=== PATIENT | female | born 1965 | race Hispanic/Latino ===

== ENCOUNTER 2018-06-26 09:38 | Emergency (ER) | payer SELFPAY ==
[2018-06-26 10:34] LABS: Protime INR 1.02
[2018-06-26] MEDS ORDERED: ONDANSETRON 4 MG/2 ML VIAL ONE (10:34)
[2018-06-26] MEDS ORDERED: MECLIZINE HCL 12.5 MG TAB ONE (10:34)
[2018-06-26 10:53] LABS: ALT/SGPT 40 U/L (12-78); AST/SGOT 20 U/L (15-37); Albumin 3.9 g/dL (3.4-5.0); Alkaline Phosphatase 157 U/L (45-117); BUN Blood Urea Nitrogen 9 mg/dL (7-18); Bicarbonate 27 mmol/L (21-32); Bilirubin Direct 0.2 mg/dL (0-0.2); Bilirubin Total 0.6 mg/dL (0.2-1.0); Glucose Level 296 mg/dL (74-106); Magnesium 2.3 mg/dL (1.8-2.4); NT PRO-BNP 119 pg/mL (<125); Protein, Total 7.6 g/dL (6.4-8.2); Sodium Level 137 mmol/L (136-145); Troponin (Emerg Dept Use Only) < 0.02 ng/mL (0.0-0.045)
--- NOTE | 2018-06-26 10:57 | RAD REPORT ---
EXAM DESCRIPTION: CT - Head Brain Wo Cont - 06/26/2018 10:49 am CLINICAL HISTORY: Headache and dizziness COMPARISON: 2017 TECHNIQUE: Computed axial tomography of the head was obtained. IV contrast was not requested. All CT scans are performed using dose optimization technique as appropriate and may include automated exposure control or mA/KV adjustment according to patient size. FINDINGS: An intracranial bleed is not seen . The ventricles are normal in caliber. Small low-density area within the right cerebellum is unchanged probably representing an old infarction. No extra-axial fluid collection is noted. Mild low-density areas within periventricular white matter likely represent ischemic changes secondary to small vessel disease. Fluid within the sinuses/ mastoids is not seen. IMPRESSION: No acute intracranial abnormality is seen. If patient's symptoms persist MRI of the bra in would be recommended.
[2018-06-26 11:05] LABS: Absolute Lymphocytes (CBC) 0.6 K/uL (0.7-4.9); Absolute Monocytes 0.3 K/uL (0.1-1.3); Absolute Neutrophil 5.5 K/uL (1.8-8.0); Basophils % 0.2 % (0-1.3); Eosinophils % 0.2 % (0-4.4); Hematocrit 43.7 % (36.0-45.0); Lymphocytes % 9.4 % (15.3-44.8); MCV 92.1 fL (80-100); MPV 8.9 fL (7.6-11.3); Monocytes % 4.2 % (3.3-12.3); RBC Red Blood Cell Count 4.74 M/uL (3.86-4.86)
--- NOTE | 2018-06-26 11:47 | RAD REPORT ---
EXAM DESCRIPTION: RAD - Chest Single View - 06/26/2018 10:45 am CLINICAL HISTORY: Dizziness, weakness, headache, shortness of breath COMPARISON: Chest 10/11/2017 TECHNIQUE: AP portable chest image was obtained 1038 hours . FINDINGS: Lungs are clear. Heart and vasculature are normal. No measurable pleural effusion and no p neumothorax. No acute bony abnormality seen. No acute aortic findings suspected. IMPRESSION: No acute cardiopulmonary process. No significant interval change.
--- NOTE | 2018-06-26 12:26 | EKG ---
Test Date: 2018-06-26 Test Time: 10:32:08 Gas Appliance Servicer: KEN MEASUREMENT RESULTS: Intervals: Rate: 71 OK: 138 QRSD: 90 QT: 414 QTc: 449 [place]: P: 11 OK: 138 QRS: -9 T: 47 INTERPRETIVE STATEMENTS: Normal sinus rhythm Nonspecific T wave abnormality Abnormal ECG Compared to ECG 10/11/2017 13:19:27 T-wave abnormality now present Electronically Signed On 06-26-18 12:25:19 CDT by Obie Sebastian
[2018-06-26 12:52] LABS: Urine White Blood Cell Casts OK
[2018-06-26 12:53] LABS: Platelet Estimate ADEQ
[2018-06-26 12:54] LABS: Blood Morphology Comment NOT SEEN (NOT SEEN)
--- NOTE | 2018-06-26 15:49 | RAD REPORT ---
EXAM DESCRIPTION: MRI - Brain Wo Cont - 06/26/2018 3:34 pm CLINICAL HISTORY: Dizziness, weakness, left-sided facial droop COMPARISON: CT head same date TECHNIQUE: Sagittal T1-weighted images were obtained along with axial PD, heavily T2-weighted and T2 -FLAIR images. Axial DWI and ADC mapping sequences were also obtained along with coronal heavily T2-w eighted images. FINDINGS: No intracranial hemorrhage, mass or acute infarction. There is no edema or shift of midlin e structures. No extra-axial fluid collections. Cheatham-matter/white matter junction is preserved. Signa l voids are seen as a normal finding in the major intracranial vessels. No significant atrophy changes are identifiable. Ventricles are normal. Patient has extensive signal abnormality scattered in the cerebral white matter. Single focus is seen in the right lentiform nucle us. There is signal abnormality in the left external capsule. Basal ganglia are generally spared in t he brainstem is spared. There is a focal air diminished or heterogeneous signal in the peripheral pos terior right cerebellum. Findings are most likely related to chronic ischemic change. There are few s ignal abnormalities that are perpendicular to the lateral ventricles. Demyelinization is not entirely excluded but felt to be lesser in likelihood. No globe or orbital content acute finding. No sella or supra sella suspicious finding. Mastoid air cells and paranasal sinuses are clear. IMPRESSION: No acute infarction changes. No hemorrhage, mass or acute intracranial finding. Patient has advanced for age signal abnormality in the cerebral hemispheres with a small focus in the posterior right cerebellum. Chronic ischemic change and old infarction changes are most likely. All findings are considered advanced for the patient's age. A few of the white matter signal abnormalities are perpendicular to the lateral ventricles. This is a characteristic associated with MS or demyelinization. This differential is considered lesser in like lihood.
[2018-06-26 17:20] LABS: Urine Blood NEGATIVE (NEG); Urine Glucose 3+ (NEG); Urine Protein NEGATIVE (NEG); Urine pH 6.5 (5.0-7.0)
--- NOTE | 2018-06-26 17:54 | EDPHYS ---
Physician Documentation [facility] Name: Yolanda Lowe Age: 53 yrs Sex: Female : 1965 Arrival Date: 06/26/2018 Time: 09:40 Bed 6 Private MD: ED Physician Timi Trujillo HPI: 06/26 10:17 This 53 yrs old Female presents to ER via Ambulatory with complaints of High jmm Blood Pressure. 10:17 The patient presents with dizziness. Onset: The symptoms/episode began/occurred jmm acutely, 1 day(s) ago. Associated signs and symptoms: Pertinent positives: nausea. This is a 53 year old female with a history of HTN, DM that presents to the ED with acute onset dizziness which she describes as the room spinning beginning yesterday morning after getting up. Patient also complains of nausea, and elevated blood pressure. Patient states she took a dose of her bp medication yesterday. The patient states she has not taken medication for HTN in approx a year. Patient denies CP or SOB. 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 - Social history:: Smoking status: Patient/guardian denies using tobacco. - Ebola Screening: : No symptoms or risks identified at this time. ROS: 10:17 Constitutional: Negative for fever, chills, and weight loss, Cardiovascular: Negative jmm for chest pain, palpitations, and edema, Respiratory: Negative for shortness of breath, cough, wheezing, and pleuritic chest pain. 10:17 Neuro: Positive for dizziness. 10:17 All other systems are negative. Exam: 10:17 Head/Face: atraumatic. Eyes: EOMI, no conjunctival erythema appreciated Chest/axilla: jmm Normal chest wall appearance and motion. Cardiovascular: Regular rate and rhythm. No edema appreciated Respiratory: Normal respirations, no respiratory distress appreciated Abdomen/GI: Non distended, soft 10:17 Constitutional: The patient appears in no acute distress, alert, awake. 10:17 Neuro: Orientation: is normal, Mentation: is normal, Memory: is normal, Cerebellar function: normal finger to nose testing, heel to sierra testing is normal. 10:17 Psych: Behavior/mood is pleasant, cooperative. Vital Signs: 09:58 BP 222 / 98; Pulse 94; Resp 16; Temp 97.9; Pulse Ox 100% on R/A; Weight 80.74 kg; hb Height 5 ft. 1 in. (154.94 cm); Pain 3/10; 10:49 BP 195 / 95; Pulse 92; Resp 18; Pulse Ox 100% on R/A; hj 11:35 BP 182 / 100; Pulse 71; Resp 18; Pulse Ox 99% on R/A; hj 11:48 BP 192 / 98; Pulse 76; Resp 18; Pulse Ox 98% on R/A; hj 12:45 BP 195 / 95; Pulse 78; Resp 18; Pulse Ox 98% on R/A; hj 13:55 BP 195 / 113; Pulse 83; Resp 18; Pulse Ox 97% on R/A; hj 14:25 BP 185 / 116; Pulse 71; Resp 18; Pulse Ox 97% on R/A; hj 15:01 BP 190 / 110; Pulse 88; Resp 18; Pulse Ox 100% on R/A; hj 15:39 BP 214 / 103; Pulse 83; Resp 18; Pulse Ox 99% on R/A; hj 16:09 BP 180 / 99; Pulse 79; Resp 18; Pulse Ox 100% on R/A; hj 16:32 BP 186 / 101; Pulse 88; Resp 18; Pulse Ox 97% on R/A; hj 17:04 BP 199 / 105; Pulse 80; Resp 18; Pulse Ox 99% on R/A; hj 18:18 BP 198 / 100; Pulse 82; Resp 18; Pulse Ox 99% on R/A; hj 09:58 Body Mass Index 33.63 (80.74 kg, 154.94 cm) hb MDM: 10:09 Patient medically screened. truman 16:15 Data reviewed: vital signs, nurses notes. Counseling: I had a detailed discussion with truman the patient and/or guardian regarding: the historical points, exam findings, and any diagnostic results supporting the discharge/admit diagnosis, lab results. 17:22 Data reviewed: lab test result(s), EKG, radiologic studies, CT scan, MRI. [facility] 17:22 Counseling: I had a detailed discussion with the patient and/or guardian regarding: [facility] radiology results, the need for outpatient follow up, to return to the emergency department if symptoms worsen or persist or if there are any questions or concerns that arise at home. ED course: I initially discussed with Dr. Zhu the need for admission due to ongoing dizziness, uncontrolled hypertension. Dr. Zhu then advised to order MRI for patient. MRI did not show an acute process. Dr. Zhu then advised to order a consult for case management to set up home health nursing and PT. Case management had left for the day. Dr. Zhu then recommended the patient begin metoprolol and amlodipine with outpatient follow up. The patient was given a list of resources along with strict return precautions. The patient understood and agreed with the plan of care. Patient is currently alert and on toxic in appearance in the ED on discharge. Dizziness is mildly relieved. . 06/26 10:16 Order name: Basic Metabolic Panel; Complete Time: 10:59 [facility] 06/26 10:16 Order name: CBC with Diff; Complete Time: 13:03 [facility] 06/26 10:16 Order name: LFT's; Complete Time: 10:59 [facility] 06/26 10:16 Order name: Magnesium; Complete Time: 10:59 [facility] 06/26 10:16 Order name: NT PRO-BNP; Complete Time: 10:59 [facility] 06/26 10:16 Order name: PT-INR; Complete Time: 10:59 [facility] 06/26 10:16 Order name: Troponin (emerg Dept Use Only); Complete Time: 10:59 [facility] 06/26 10:16 Order name: XRAY Chest (1 view); Complete Time: 11:49 [facility] 06/26 10:16 Order name: CT Head Brain wo Cont; Complete Time: 10:59 [facility] 06/26 11:09 Order name: CBC Smear Scan; Complete Time: 13:03 [facility] 06/26 12:13 Order name: MRI - Brain Wo Cont; Complete Time: 15:49 [facility] 06/26 14:06 Order name: Urine Dipstick--Ancillary (enter results); Complete Time: 17: 06/26 14:06 Order name: Urine --Ancillary (enter results); Complete Time: 17: 06/26 10:16 Order name: EKG; Complete Time: : [facility] 06/26 10:16 Order name: Cardiac monitoring; Complete Time: 10: [facility] 06/26 10:16 Order name: EKG - Nurse/Tech; Complete Time: : [facility] 06/26 10:16 Order name: IV Saline Lock; Complete Time: : [facility] 06/26 10:16 Order name: Labs collected and sent; Complete Time: : [facility] 06/26 10:16 Order name: O2 Per Protocol; Complete Time: : [facility] 06/26 10:16 Order name: O2 Sat Monitoring; Complete Time: : [facility] 06/26 16:23 Order name: Case Management Consult EDMS Administered Medications: 10:24 Drug: Meclizine 50 mg Route: PO; 11:49 Follow up: Response: No adverse reaction 10:24 Drug: Zofran 4 mg Route: IVP; Site: right antecubital; 11:49 Follow up: Response: No adverse reaction; Nausea is decreased Disposition: 06/26/18 17:53 Discharged to Home. Impression: Hypertension, Dizziness. - Condition is Stable. - Discharge Instructions: Dizziness, Hypertension. - Prescriptions for Meclizine 25 mg Oral Tablet - take 1 tablet by ORAL route every 8 hours As needed; 30 tablet. - Medication Reconciliation Form, Thank You Letter, Antibiotic Education, Prescription Opioid Use form. - Follow up: Private Physician; When: 2 - 3 days; Reason: Recheck today's complaints, Continuance of care, Re-evaluation by your physician. - Notes: Please resume Metoprolol and amylodipine as directed. Return to the Emergency Department if you develop worsening symptoms, chest pain, shortness of breath, or any other concerning symptoms. Addendum: 06/28/2018 13:29 Co-signature as Attending Physician, Timi Trujillo MD I agree with the assessment and k dr plan of care. Signatures: Dispatcher [employer] EDMS Timi Trujillo MD MD kdr Mickail, Joel, PA PA jmm Joaquin, Henry, RN RN hj Mari Spivey RN RN Corrections: (The following items were deleted from the chart) 06/26 18:16 17:53 06/26/2018 17:53 Discharged to Home. Impression: Hypertension; Dizziness. hj Condition is Stable. Forms are Medication Reconciliation Form, Thank You Letter, Antibiotic Education, Prescription Opioid Use. Follow up: Private Physician; When: 2 - 3 days; Reason: Recheck today's complaints, Continuance of care, Re-evaluation by your physician. truman
--- NOTE | 2018-06-26 17:54 | ER ---
Nurse's Notes [facility] Name: Yolanda Lowe Age: 53 yrs Sex: Female : 1965 Arrival Date: 06/26/2018 Time: 09:40 Bed 6 Private MD: Diagnosis: Hypertension;Dizziness Presentation: 06/26 09:57 Presenting complaint: Patient states: Dizziness and headache since yesterday, vomit x 1 hb today. Transition of care: patient was not received from another setting of care. Onset of symptoms was June 25, 2018. Risk Assessment: Do you want to hurt yourself or someone else? Patient reports no desire to harm self or others. Care prior to arrival: None. 09:57 Method Of Arrival: Ambulatory hb 09:57 Acuity: MARGI 3 hb 10:05 Initial Sepsis Screen: Does the patient meet any 2 criteria? No. Patient's initial hj sepsis screen is negative. Does the patient have a suspected source of infection? No. Patient's initial sepsis screen is negative. Triage Assessment: 10:05 General: Appears in no apparent distress. uncomfortable, Behavior is calm, cooperative, hj appropriate for age. Pain: Denies pain. 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 - Social history:: Smoking status: Patient/guardian denies using tobacco. - Ebola Screening: : No symptoms or risks identified at this time. Screenin:04 Abuse screen: Denies threats or abuse. Denies injuries from another. Nutritional hj screening: No deficits noted. Tuberculosis screening: No symptoms or risk factors identified. Fall Risk None identified. Assessment: 09:48 General: Appears in no apparent distress. uncomfortable, Behavior is calm, cooperative, hj appropriate for age. Pain: Complains of pain in head. Neuro: Level of Consciousness is awake, alert, obeys commands, Oriented to person, place, time, situation, Appropriate for age. Cardiovascular: Capillary refill < 3 seconds Patient's skin is warm and dry. Respiratory: Airway is patent Respiratory effort is even, unlabored, Respiratory pattern is regular, symmetrical. GI: No signs and/or symptoms were reported involving the gastrointestinal system. : No signs and/or symptoms were reported regarding the genitourinary system. EENT: No signs and/or symptoms were reported regarding the EENT system. Derm: No signs and/or symptoms reported regarding the dermatologic system. Musculoskeletal: No signs and/or symptoms reported regarding the musculoskeletal system. 10:13 Reassessment: provider in room;. hj 11:35 Reassessment: Patient and/or family updated on plan of care and expected duration. Pain hj level reassessed. Patient is alert, oriented x 3, equal unlabored respirations, skin warm/dry/pink. awaiting results and POC;. 12:30 Reassessment: Patient and/or family updated on plan of care and expected duration. Pain hj level reassessed. Patient is alert, oriented x 3, equal unlabored respirations, skin warm/dry/pink. MD aware of BP reading;. 13:30 Reassessment: Patient and/or family updated on plan of care and expected duration. Pain hj level reassessed. Patient is alert, oriented x 3, equal unlabored respirations, skin warm/dry/pink. provider aware of BP reading;. 15:03 Reassessment: provider informed of BP reading; tech wheeled to MRI;. hj 15:39 Reassessment: wheeled back to room;. hj 16:13 Reassessment: awaiting for provider to discuss POC:. hj 17:03 Reassessment: charged nurse was informed to reinforced with provider about POC:. hj 18:17 Reassessment: MD notified about BP; states patient to be D/C'd. Vital Signs: 09:58 BP 222 / 98; Pulse 94; Resp 16; Temp 97.9; Pulse Ox 100% on R/A; Weight 80.74 kg; hb Height 5 ft. 1 in. (154.94 cm); Pain 3/10; 10:49 BP 195 / 95; Pulse 92; Resp 18; Pulse Ox 100% on R/A; hj 11:35 BP 182 / 100; Pulse 71; Resp 18; Pulse Ox 99% on R/A; hj 11:48 BP 192 / 98; Pulse 76; Resp 18; Pulse Ox 98% on R/A; hj 12:45 BP 195 / 95; Pulse 78; Resp 18; Pulse Ox 98% on R/A; hj 13:55 BP 195 / 113; Pulse 83; Resp 18; Pulse Ox 97% on R/A; hj 14:25 BP 185 / 116; Pulse 71; Resp 18; Pulse Ox 97% on R/A; hj 15:01 BP 190 / 110; Pulse 88; Resp 18; Pulse Ox 100% on R/A; hj 15:39 BP 214 / 103; Pulse 83; Resp 18; Pulse Ox 99% on R/A; hj 16:09 BP 180 / 99; Pulse 79; Resp 18; Pulse Ox 100% on R/A; hj 16:32 BP 186 / 101; Pulse 88; Resp 18; Pulse Ox 97% on R/A; hj 17:04 BP 199 / 105; Pulse 80; Resp 18; Pulse Ox 99% on R/A; hj 18:18 BP 198 / 100; Pulse 82; Resp 18; Pulse Ox 99% on R/A; hj 09:58 Body Mass Index 33.63 (80.74 kg, 154.94 cm) hb ED Course: 09:40 Patient arrived in ED. as 09:58 Triage completed. hb 09:58 Arm band placed on right wrist. hb 10:04 Liam Morrison, RN is Primary Nurse. hj 10:05 Patient has correct armband on for positive identification. Placed in gown. Bed in low hj position. Call light in reach. Side rails up X 1. 10:09 Toby Meier PA is PHCP. jmm 10:09 Timi Trujillo MD is Attending Physician. jmm 10:11 Initial lab(s) drawn, by me, sent to lab. Inserted saline lock: 22 gauge in right hj antecubital area, using aseptic technique. Blood collected. 10:39 EKG done, by optical fabrication technician. reviewed by Liam Morrison RN. tc 10:44 X-ray completed. Portable x-ray completed in exam room. Patient tolerated procedure ml well. 10:46 XRAY Chest (1 view) In Process Unspecified. EDMS 10:48 CT completed. Patient tolerated procedure well. Patient moved to CT via wheelchair. sj Patient moved back from CT. 10:48 CT Head Brain wo Cont In Process Unspecified. EDMS 14:05 Urine collected: clean catch specimen, clear. dh3 15:00 Patient moved to MRI via wheelchair. ka 15:23 MRI - Brain Wo Cont In Process Unspecified. EDMS 15:43 Patient moved back from MRI. ka 18:16 No provider procedures requiring assistance completed. IV discontinued, intact, hj bleeding controlled, No redness/swelling at site. Pressure dressing applied. Administered Medications: 10:24 Drug: Meclizine 50 mg Route: PO; hj 11:49 Follow up: Response: No adverse reaction hj 10:24 Drug: Zofran 4 mg Route: IVP; Site: right antecubital; hj 11:49 Follow up: Response: No adverse reaction; Nausea is decreased hj Outcome: 17:53 Discharge ordered by MD. juanitom 18:16 Patient left the ED. hj 18:17 Discharged to home ambulatory. hj 18:17 Condition: stable 18:17 Discharge instructions given to patient, Instructed on discharge instructions, follow up and referral plans. medication usage, Demonstrated understanding of instructions, follow-up care, medications, Prescriptions given X 1. Signatures: Dispatcher [employer] EDMS Toby Meier PA PA jmm Jones, Susan sj Martinez, Amelia as Lopez, Melissa ml Callis, Tiffany, junior assistant manager EKG Ttc Liam Morrison RN RN Emmanuelle Watson Heather, RN RN Bonnie Alejandre dh3 Corrections: (The following items were deleted from the chart) 10:00 09:57 Presenting complaint: Patient states: Dizziness and headache since yesterday, hb vomit x 1 today. hb 16:13 13:30 Reassessment: Patient and/or family updated on plan of care and expected hj duration. Pain level reassessed. Patient is alert, oriented x 3, equal unlabored respirations, skin warm/dry/pink. BP aware of BP reading; hj
== END 2018-06-26 18:16 | disposition home or self-care (01) ==
LOC: ER 09:38
DX: I10 Essential (primary) hypertension (principal); E11.9 Type 2 diabetes mellitus without complications; Z88.5 Allergy status to narcotic agent
CPT/HCPCS: 36415; 70450; 70551; 71045; 80048; 80076; 81003; 81025; 83735; 83880; 84484; 85025; 85610; 93005; 96374; 99284; J2405

== ENCOUNTER 2018-10-26 10:24 | Emergency (ER) | payer SELFPAY ==
[2018-10-26] MEDS ORDERED: FLUORESCEIN SODIUM 0.6 MG/WRAP ONE (11:02)
[2018-10-26] MEDS ORDERED: TETRACAINE HCL 0.5% 2ML OPTH ONE (11:02)
--- NOTE | 2018-10-26 11:04 | ER ---
Nurse's Notes [facility] Name: Yolanda Lowe Age: 53 yrs Sex: Female : 1965 Arrival Date: 10/26/2018 Time: 10:25 Bed 8 Private MD: Diagnosis: Injury of conjunctiva and corneal abrasion without foreign body, left eye Presentation: 10/26 10:42 Presenting complaint: Patient states: "I poked my eye with a pin this morning. I was ss trying to separate my eyelashes.". Transition of care: patient was not received from another setting of care. Mechanism of Injury: see triage complaint. The patient denies any loss of vision. Onset of symptoms was October 26, 2018. Risk Assessment: Do you want to hurt yourself or someone else? Patient reports no desire to harm self or others. Initial Sepsis Screen: Does the patient meet any 2 criteria? No. Patient's initial sepsis screen is negative. Does the patient have a suspected source of infection? No. Patient's initial sepsis screen is negative. Care prior to arrival: None. 10:42 Method Of Arrival: Ambulatory ss 10:42 Acuity: MARGI 2 ss Historical: - Allergies: 10:44 No Known Allergies; ss - PMHx: 10:44 Diabetes - NIDDM; Hypertension; ss - PSHx: 10:44 ; ss - Immunization history:: Adult Immunizations up to date. - Social history:: Smoking status: Patient/guardian denies using tobacco. - Ebola Screening: : Patient denies exposure to infectious person Patient denies travel to an Ebola-affected area in the 21 days before illness onset. - Family history:: not pertinent. - Hospitalizations: : No recent hospitalization is reported. Assessment: 10:42 Reassessment: Pt reports her blood pressure is high because she has not seen a doctor and has been unable to refill her blood pressure medication in over a year. Vital Signs: 10:44 BP 250 / 123; Pulse 90; Resp 16; Temp 98.2(TE); Pulse Ox 100% on R/A; Weight 79.38 kg; ss Height 5 ft. 1 in. (154.94 cm); Pain 5/10; 10:44 Body Mass Index 33.07 (79.38 kg, 154.94 cm) ED Course: 10:25 Patient arrived in ED. as 10:44 Triage completed. ss 10:44 Arm band placed on left wrist. ss 10:46 Lincoln William MD is Attending Physician. rn 11:04 Ronald Sanchez RN is Primary Nurse. sg Administered Medications: 11:04 Drug: Fluorescein Strip 1 strip {Note: medication administered by .} Route: sg Ophthalmic; Site: right eye; 11:05 Drug: Tetracaine Drops 0.5 % 1 drops {Note: medication administered by .} sg Route: Ophthalmic; Site: right eye; Outcome: 11:04 Discharge ordered by . rn 11:12 Patient left the ED. ss Signatures: Ronald Sanchez RN RN Sharmaine Joiner as Lincoln William MD MD rn Smirch, Shelby, RN RN Corrections: (The following items were deleted from the chart) 11:02 10:42 Presenting complaint: Patient states: "I poked my eye with a pen this morning. I ss was trying to separate my eyelashes." ss
--- NOTE | 2018-10-26 11:05 | EDPHYS ---
Physician Documentation [facility] Name: Yolanda Lowe Age: 53 yrs Sex: Female : 1965 Arrival Date: 10/26/2018 Time: 10:25 Bed 8 Private MD: ED Physician Lincoln William HPI: 10/26 11:00 This 53 yrs old Female presents to ER via Ambulatory with complaints of Eye rn Injury. 11:00 The patient is experiencing pain, tearing, The patient sustained a scratch, to the left rn eye, caused by needle. Onset: The symptoms/episode began/occurred just prior to arrival. Duration: the symptoms are continuous. Severity of symptoms: At their worst the symptoms were mild in the emergency department the symptoms are unchanged. The patient has not experienced similar symptoms in the past. Reports using needle/pin, to separate eyelashes, accidentally scratched her eyeball, mild pain and tearing, no vision loss. . Historical: - Allergies: 10:44 No Known Allergies; ss - PMHx: 10:44 Diabetes - NIDDM; Hypertension; ss - PSHx: 10:44 ; ss - Immunization history:: Adult Immunizations up to date. - Social history:: Smoking status: Patient/guardian denies using tobacco. - Ebola Screening: : Patient denies exposure to infectious person Patient denies travel to an Ebola-affected area in the 21 days before illness onset. - Family history:: not pertinent. - Hospitalizations: : No recent hospitalization is reported. ROS: 11:00 Constitutional: Negative for fever, chills, and weight loss, Eyes: + left eye injury rn Exam: 11:00 Visual Acuity: I have reviewed the nursing documentation. Visual acuity is within rn normal limits. 11:00 Constitutional: This is a well developed, well nourished patient who is awake, alert, and in no acute distress. Eyes: + fluorescein uptake in linear superficial pattern across cornea at 3 o'clock position, neg terrie's, pupil round and reactive Vital Signs: 10:44 BP 250 / 123; Pulse 90; Resp 16; Temp 98.2(TE); Pulse Ox 100% on R/A; Weight 79.38 kg; ss Height 5 ft. 1 in. (154.94 cm); Pain 5/10; 10:44 Body Mass Index 33.07 (79.38 kg, 154.94 cm) ss MDM: 10:48 Patient medically screened. rn 11:00 Differential diagnosis: Corneal abrasion of. Data reviewed: vital signs, nurses notes, rn and as a result, I will discharge patient. Counseling: I had a detailed discussion with the patient and/or guardian regarding: the historical points, exam findings, and any diagnostic results supporting the discharge/admit diagnosis, the need for outpatient follow up, to return to the emergency department if symptoms worsen or persist or if there are any questions or concerns that arise at home. Special discussion: I discussed with the patient/guardian in detail that at this point there is no indication for admission to the hospital. It is understood, however, that if the symptoms persist or worsen the patient needs to return immediately for re-evaluation. Based on the history and exam findings, there is no indication for further emergent testing or inpatient evaluation. I discussed with the patient/guardian the need to see the opthamologist for further evaluation of the symptoms. 10/26 11:00 Order name: Fluoresene Opth strip; Complete Time: 11:05 rn Administered Medications: 11:04 Drug: Fluorescein Strip 1 strip {Note: medication administered by .} Route: sg Ophthalmic; Site: right eye; 11:05 Drug: Tetracaine Drops 0.5 % 1 drops {Note: medication administered by .} sg Route: Ophthalmic; Site: right eye; Disposition: 10/26/18 11:04 Discharged to Home. Impression: Injury of conjunctiva and corneal abrasion without foreign body, left eye. - Condition is Stable. - Discharge Instructions: Corneal Abrasion. - Prescriptions for Hydralazine 25 mg Oral Tablet - take 1 tablet by ORAL route 4 times per day with food; 60 tablet. Erythromycin 5 mg/gram (0.5 %) Ophthalmic Ointment - apply 1 centimeter by OPHTHALMIC route 2-3 times daily for 7 days; 1 tube. Metoprolol Tartrate 50 mg Oral Tablet - take 1 tablet by ORAL route 2 times per day take with meal; 60 tablet. - Work release form, Medication Reconciliation Form, Thank You Letter, Antibiotic Education, Prescription Opioid Use form. - Follow up: Private Physician; When: As needed; Reason: Recheck today's complaints, Re-evaluation by your physician. - Problem is new. - Symptoms have improved. Signatures: Ronald Sanchez RN RN sg Lincoln William MD MD rn Smirch, Shelby, RN RN ss Corrections: (The following items were deleted from the chart) 11:12 11:04 10/26/2018 11:04 Discharged to Home. Impression: Injury of conjunctiva and ss corneal abrasion without foreign body, left eye. Condition is Stable. Forms are Medication Reconciliation Form, Thank You Letter, Antibiotic Education, Prescription Opioid Use. Follow up: Private Physician; When: As needed; Reason: Recheck today's complaints, Re-evaluation by your physician. Problem is new. Symptoms have improved. rn
== END 2018-10-26 11:12 | disposition home or self-care (01) ==
LOC: ER 10:24
DX: S05.02XA Injury of conjunctiva and corneal abrasion without foreign body, left eye, initial encounter (principal); X58.XXXA Exposure to other specified factors, initial encounter
CPT/HCPCS: 99282

== ENCOUNTER 2018-12-21 22:07 | Emergency (ER) | payer SELFPAY ==
[2018-12-22] MEDS ORDERED: LABETALOL 20 MG/4ML SYRINGE IV ONE (00:24)
[2018-12-22 00:37] LABS: Absolute Lymphocytes (CBC) 1.6 K/uL (0.7-4.9); Absolute Monocytes 0.4 K/uL (0.1-1.3); Absolute Neutrophil 4.6 K/uL (1.8-8.0); Basophils % 0.8 % (0-1.3); Eosinophils % 1.1 % (0-4.4); Hematocrit 41.2 % (36.0-45.0); Lymphocytes % 23.9 % (15.3-44.8); MPV 9.1 fL (7.6-11.3); Monocytes % 5.7 % (3.3-12.3); RBC Red Blood Cell Count 4.48 M/uL (3.86-4.86)
[2018-12-22 00:47] LABS: Protime INR 0.99
[2018-12-22 01:01] LABS: ALT/SGPT 27 U/L (12-78); AST/SGOT 14 U/L (15-37); Albumin 3.6 g/dL (3.4-5.0); Alkaline Phosphatase 147 U/L (45-117); BUN Blood Urea Nitrogen 11 mg/dL (7-18); Bicarbonate 26 mmol/L (21-32); Bilirubin Direct 0.1 mg/dL (0-0.2); Bilirubin Total 0.4 mg/dL (0.2-1.0); Glucose Level 335 mg/dL (74-106); Magnesium 2.2 mg/dL (1.8-2.4); Potassium 3.4 mmol/L (3.5-5.1); Protein, Total 7.1 g/dL (6.4-8.2); Sodium Level 138 mmol/L (136-145); Troponin (Emerg Dept Use Only) < 0.02 ng/mL (0.0-0.045)
[2018-12-22] MEDS ORDERED: HYDRALAZINE HCL 20 MG/ML VIAL ONE (01:49)
[2018-12-22] MEDS ORDERED: LIDOCAINE VISCOUS 2% SOLN 15 ML UDC ONE (02:41)
--- NOTE | 2018-12-22 02:45 | ER ---
Nurse's Notes [facility] Name: Yolanda Lowe Age: 53 yrs Sex: Female : 1965 Arrival Date: 12/21/2018 Time: 22:18 Bed 16 Private MD: Diagnosis: Essential (primary) hypertension Presentation: 12/21 22:39 Presenting complaint: Patient states: Pt states she feels she has something stuck in ea her throat, has been having trouble swallowing for the past two weeks. Pt states she has been feeling anxious and her blood pressure has been elevated even after taking her her BP meds. Transition of care: patient was not received from another setting of care. Onset of symptoms was December 21, 2018. Risk Assessment: Do you want to hurt yourself or someone else? Patient reports no desire to harm self or others. Initial Sepsis Screen: Does the patient meet any 2 criteria? No. Patient's initial sepsis screen is negative. Does the patient have a suspected source of infection? No. Patient's initial sepsis screen is negative. Care prior to arrival: None. 22:39 Method Of Arrival: Ambulatory ea 22:39 Acuity: MARGI 3 ea Triage Assessment: 22:43 General: Appears in no apparent distress. Behavior is calm, cooperative, appropriate ea for age. Pain: Denies pain. Neuro: Level of Consciousness is awake, alert, obeys commands, Oriented to person, place, time. Cardiovascular: Patient's skin is warm and dry. Derm: Skin is pink, warm \T\ dry. Historical: - Allergies: 22:42 Hydrochlorothiazide; ea - Home Meds: 22:42 hydralazine 25 mg Oral tab 1 tab 2 times per day [Active]; amlodipine 5 mg tab 1 tab ea once daily [Active]; metoprolol tartrate 50 mg Oral tab 1 tab 2 times per day [Active]; - PMHx: 22:42 Hypertension; Diabetes - NIDDM; ea - PSHx: 22:42 ; ea - Immunization history:: Adult Immunizations up to date. - Social history:: Smoking status: Patient/guardian denies using tobacco. - Ebola Screening: : No symptoms or risks identified at this time. Screenin:43 Abuse screen: Denies threats or abuse. Nutritional screening: No deficits noted. ea Tuberculosis screening: No symptoms or risk factors identified. Fall Risk None identified. Assessment: 22:50 General: Appears in no apparent distress. uncomfortable, Behavior is calm, cooperative, jb4 appropriate for age. Pain: Denies pain. Neuro: Level of Consciousness is awake, alert, obeys commands, Oriented to person, place, time, situation. Cardiovascular: Heart tones S1 S2 present Patient's skin is warm and dry. Rhythm is sinus rhythm. Respiratory: Airway is patent Respiratory effort is even, unlabored, Respiratory pattern is regular, symmetrical, Breath sounds are clear bilaterally. GI: No signs and/or symptoms were reported involving the gastrointestinal system. : No signs and/or symptoms were reported regarding the genitourinary system. EENT: Reports difficulty swallowing. Derm: Skin is intact, Skin is pink, warm \T\ dry. Musculoskeletal: Circulation, motion, and sensation intact. 23:30 Reassessment: Provider notified about high blood pressure no orders at this time. jb4 12/22 00:00 Reassessment: Patient appears in no apparent distress at this time. No changes from jb4 previously documented assessment. Patient and/or family updated on plan of care and expected duration. Pain level reassessed. Patient is alert, oriented x 3, equal unlabored respirations, skin warm/dry/pink. 00:56 Reassessment: No changes from previously documented assessment. Patient and/or family jb4 updated on plan of care and expected duration. Pain level reassessed. Patient is alert, oriented x 3, equal unlabored respirations, skin warm/dry/pink. Pt reports a decrease in headache, b/p 204/89, provider notified, no new orders at this time. Patient states feeling better. 01:10 Reassessment: Pt reports continued difficulty swallowing that is the same as it has jb4 been prior to arrival. Is able to swallow water without any signs of choking. Provider notifed. 01:19 Reassessment: No changes from previously documented assessment. Patient and/or family jb4 updated on plan of care and expected duration. Pain level reassessed. Patient is alert, oriented x 3, equal unlabored respirations, skin warm/dry/pink. Pt b/p 230/100, Provider notified, no new orders at this time. 02:00 Reassessment: Patient appears in no apparent distress at this time. Patient and/or jb4 family updated on plan of care and expected duration. Pain level reassessed. Patient is alert, oriented x 3, equal unlabored respirations, skin warm/dry/pink. Pt reports discomfort swallowing, provider notified, see MAR for orders. 02:40 Reassessment: Pt refused viscous lidocaine swish and swallow, provider notified. jb4 Vital Signs: 12/21 22:41 BP 237 / 122; Pulse 86; Resp 18 S; Temp 97.6; Pulse Ox 98% on R/A; Weight 75.75 kg; ea Height 5 ft. 1 in. (154.94 cm); 23:30 BP 210 / 100; Pulse 81; Resp 16; Pulse Ox 98% on R/A; jb4 12/22 00:45 BP 204 / 89; Pulse 71; Resp 16; Pulse Ox 99% on R/A; jb4 01:00 BP 185 / 83; Pulse 68; Resp 16; Pulse Ox 97% on R/A; jb4 01:19 BP 230 / 100; Pulse 74; Resp 16; Pulse Ox 100% on R/A; jb4 01:45 BP 204 / 93; Pulse 89; Resp 16; Pulse Ox 99% ; jb4 02:15 BP 168 / 94; Pulse 100; Resp 16; Pulse Ox 99% on R/A; jb4 02:30 BP 176 / 79; Pulse 100; Resp 16; Pulse Ox 98% on R/A; jb4 02:45 BP 167 / 88; Pulse 98; Resp 16; Pulse Ox 98% on R/A; jb4 12/21 22:41 Body Mass Index 31.55 (75.75 kg, 154.94 cm) ea 12/21 23:30 Provider notified. jb4 12/22 01:00 Provider notified jb4 02:30 Provider notified jb4 ED Course: 12/21 22:18 Patient arrived in ED. es 22:38 Arm band placed on right wrist. Patient placed in an exam room, on a stretcher, on ea pulse oximetry. 22:41 Triage completed. ea 22:41 Theron Brennan MD is Attending Physician. gs 22:43 Kenneth Martinez, RN is Primary Nurse. jb4 22:50 Inserted saline lock: 20 gauge in left antecubital area, using aseptic technique. Blood jb5 collected. 22:51 EKG done, by ED staff. jb5 23:00 Patient has correct armband on for positive identification. Placed in gown. Bed in low jb4 position. Call light in reach. Side rails up X 1. priming powder premix blender on. Pulse ox on. NIBP on. 04/08 00:43 X-ray completed. Portable x-ray completed in exam room. Patient tolerated procedure kw well. 00:45 XRAY Chest (1 view) In Process Unspecified. EDMS 02:55 No provider procedures requiring assistance completed. IV discontinued, intact, jb4 bleeding controlled. Administered Medications: 00:23 Drug: Labetalol 20 mg Route: IVP; Infused Over: 2 mins; Site: left antecubital; jb4 01:12 Follow up: Response: No adverse reaction; Blood pressure is lowered jb4 01:38 Drug: hydrALAZINE 20 mg {Note: Given IVP per Pharmacy Protocol diluted in 10 ml Saline jb4 flush.} Route: IV; Rate: calculated rate; Site: left antecubital; 01:43 Follow up: Response: No adverse reaction; Blood pressure is lowered; IV Status: jb4 Completed infusion; IV Intake: 10ml 02:33 Not Given (Patient Refused): Viscous Lidocaine Liquid (4 %) 5 ml Mucous Membrane once; jb4 swish swallow Intake: 01:43 IV: 10ml; Total: 10ml. jb4 Outcome: 02:44 Discharge ordered by . 02:55 Discharged to home ambulatory, with crutches. jb4 02:55 Condition: stable 02:55 Discharge instructions given to patient, family, Instructed on discharge instructions, follow up and referral plans. medication usage, Demonstrated understanding of instructions, follow-up care, medications, Prescriptions given X 3. 02:55 Patient left the ED. jb4 Signatures: Dispatcher [employer] EDMS Laura Noel Kimberlee kw Bryson, James, RN RN jb4 Mary Isaacs jb5 Fauzia Middleton RN RN ea Starr, Gregory, MD MD gs Corrections: (The following items were deleted from the chart) 00:06 04/07 23:20 Reassessment: Provider notified about high blood pressure no orders at this jb4 time. jb4 12/22 01:07 00:56 BP 204 / 89; Pulse 71bpm; Resp 16bpm; Pulse Ox 99% RA; jb4 jb4 02:25 01:38 hydrALAZINE 20 mg IV at calculated rate in left antecubital jb4 jb4
--- NOTE | 2018-12-22 02:45 | EDPHYS ---
Physician Documentation [facility] Name: Yolanda Lowe Age: 53 yrs Sex: Female : 1965 Arrival Date: 12/21/2018 Time: 22:18 Bed 16 Private MD: ED Physician Theron Brennan HPI: 12/22 02:37 This 53 yrs old Female presents to ER via Ambulatory with complaints of htn. gs 02:37 Onset: The symptoms/episode began/occurred 1 month(s) ago. Modifying factors: The gs symptoms are aggravated by discontinuation of meds, The symptoms are alleviated by prescription meds. Associated signs and symptoms: Pertinent positives: headache, Pertinent negatives: chest pain. Associated signs and symptoms: Pertinent negatives: vomiting. Severity of symptoms: At its worst the blood pressure was severe, in the emergency department the blood pressure is unchanged. The patient has experienced similar episodes in the past, a few times. Historical: - Allergies: 12/21 22:42 Hydrochlorothiazide; ea - Home Meds: 22:42 hydralazine 25 mg Oral tab 1 tab 2 times per day [Active]; amlodipine 5 mg tab 1 tab ea once daily [Active]; metoprolol tartrate 50 mg Oral tab 1 tab 2 times per day [Active]; - PMHx: 22:42 Hypertension; Diabetes - NIDDM; ea - PSHx: 22:42 ; ea - Immunization history:: Adult Immunizations up to date. - Social history:: Smoking status: Patient/guardian denies using tobacco. - Ebola Screening: : No symptoms or risks identified at this time. ROS: 12/22 02:37 All other systems are negative. gs Exam: 02:37 Head/Face: Normocephalic, atraumatic. Eyes: Pupils equal round and reactive to light, gs extra-ocular motions intact. Lids and lashes normal. Conjunctiva and sclera are non-icteric and not injected. Cornea within normal limits. Periorbital areas with no swelling, redness, or edema. ENT: Nares patent. No nasal discharge, no septal abnormalities noted. Tympanic membranes are normal and external auditory canals are clear. Oropharynx with no redness, swelling, or masses, exudates, or evidence of obstruction, uvula midline. Mucous membranes moist. Neck: Trachea midline, no thyromegaly or masses palpated, and no cervical lymphadenopathy. Supple, full range of motion without nuchal rigidity, or vertebral point tenderness. No Meningismus. Chest/axilla: Normal chest wall appearance and motion. Nontender with no deformity. No lesions are appreciated. Respiratory: Lungs have equal breath sounds bilaterally, clear to auscultation and percussion. No rales, rhonchi or wheezes noted. No increased work of breathing, no retractions or nasal flaring. Abdomen/GI: Soft, non-tender, with normal bowel sounds. No distension or tympany. No guarding or rebound. No evidence of tenderness throughout. Back: No spinal tenderness. No costovertebral tenderness. Full range of motion. Skin: Warm, dry with normal turgor. Normal color with no rashes, no lesions, and no evidence of cellulitis. MS/ Extremity: Pulses equal, no cyanosis. Neurovascular intact. Full, normal range of motion. Neuro: Awake and alert, GCS 15, oriented to person, place, time, and situation. Cranial nerves II-XII grossly intact. Motor strength 5/5 in all extremities. Sensory grossly intact. Cerebellar exam normal. Normal gait. 02:37 Constitutional: The patient appears alert, awake. 02:37 Cardiovascular: Rate: tachycardic, Rhythm: regular, Pulses: no pulse deficits are appreciated. Vital Signs: 12/21 22:41 BP 237 / 122; Pulse 86; Resp 18 S; Temp 97.6; Pulse Ox 98% on R/A; Weight 75.75 kg; ea Height 5 ft. 1 in. (154.94 cm); 23:30 BP 210 / 100; Pulse 81; Resp 16; Pulse Ox 98% on R/A; jb4 12/22 00:45 BP 204 / 89; Pulse 71; Resp 16; Pulse Ox 99% on R/A; jb4 01:00 BP 185 / 83; Pulse 68; Resp 16; Pulse Ox 97% on R/A; jb4 01:19 BP 230 / 100; Pulse 74; Resp 16; Pulse Ox 100% on R/A; jb4 01:45 BP 204 / 93; Pulse 89; Resp 16; Pulse Ox 99% ; jb4 02:15 BP 168 / 94; Pulse 100; Resp 16; Pulse Ox 99% on R/A; jb4 02:30 BP 176 / 79; Pulse 100; Resp 16; Pulse Ox 98% on R/A; jb4 02:45 BP 167 / 88; Pulse 98; Resp 16; Pulse Ox 98% on R/A; jb4 12/21 22:41 Body Mass Index 31.55 (75.75 kg, 154.94 cm) ea 12/21 23:30 Provider notified. jb4 12/22 01:00 Provider notified jb4 02:30 Provider notified jb4 MDM: 00:05 Patient medically screened. 02:37 Differential diagnosis: hypertensive crisis, Malignant HTN. Data reviewed: vital signs, nurses notes. Counseling: I had a detailed discussion with the patient and/or guardian regarding: the historical points, exam findings, and any diagnostic results supporting the discharge/admit diagnosis, the need for outpatient follow up. Response to treatment: the patient's symptoms have markedly improved after treatment, and as a result, I will discharge patient. 02:37 Data reviewed: lab test result(s), EKG, radiologic studies. Test interpretation: by ED physician or midlevel provider: ECG. 12/22 00:06 Order name: Basic Metabolic Panel; Complete Time: : 12/22 00:06 Order name: CBC with Diff; Complete Time: : 12/22 00:06 Order name: LFT's; Complete Time: : 12/22 00:06 Order name: Magnesium; Complete Time: 12/22 00:06 Order name: NT PRO-BNP; Complete Time: : 12/22 00:06 Order name: PT-INR; Complete Time: : 12/22 00:06 Order name: Troponin (emerg Dept Use Only); Complete Time: : 12/22 00:06 Order name: XRAY Chest (1 view) 12/22 00:06 Order name: EKG; Complete Time: 00:07 12/22 00:06 Order name: Cardiac monitoring; Complete Time: 00:08 12/22 00:06 Order name: EKG - Nurse/Tech; Complete Time: 00:08 04 00:06 Order name: IV Saline Lock; Complete Time: 00:08 12/22 00:06 Order name: Labs collected and sent; Complete Time: 00:08 12/22 00:06 Order name: O2 Per Protocol; Complete Time: 00:08 12/22 00:06 Order name: O2 Sat Monitoring; Complete Time: 00:08 Administered Medications: 00:23 Drug: Labetalol 20 mg Route: IVP; Infused Over: 2 mins; Site: left antecubital; jb4 01:12 Follow up: Response: No adverse reaction; Blood pressure is lowered [facility] 01:38 Drug: hydrALAZINE 20 mg {Note: Given IVP per Pharmacy Protocol diluted in 10 ml Saline jb4 flush.} Route: IV; Rate: calculated rate; Site: left antecubital; 01:43 Follow up: Response: No adverse reaction; Blood pressure is lowered; IV Status: jb4 Completed infusion; IV Intake: 10ml 02:33 Not Given (Patient Refused): Viscous Lidocaine Liquid (4 %) 5 ml Mucous Membrane once; jb4 swish swallow Disposition: 12/22/18 02:44 Discharged to Home. Impression: Essential (primary) hypertension. - Condition is Stable. - Discharge Instructions: Hypertension, Managing Your Hypertension. - Prescriptions for Norvasc 5 mg Oral Tablet - take 1 tablet by ORAL route once daily; 30 tablet. Hydralazine 25 mg Oral Tablet - take 2 tablet by ORAL route 2 times per day with food; 120 tablet. Metoprolol Tartrate 50 mg Oral Tablet - take 1 tablet by ORAL route 2 times per day take with meal; 60 tablet. - Medication Reconciliation Form, Thank You Letter, Antibiotic Education, Prescription Opioid Use form. - Follow up: Private Physician; When: 2 - 3 days; Reason: Re-evaluation by your physician. - Problem is an ongoing problem. - Symptoms have improved. Signatures: Dispatcher [employer] EDKenneth Buckley RN RN jb4 Fauzia Middleton RN RN ea Starr, Gregory, MD MD gs Corrections: (The following items were deleted from the chart) 02:55 02:44 12/22/2018 02:44 Discharged to Home. Impression: Essential (primary) jb4 hypertension. Condition is Stable. Forms are Medication Reconciliation Form, Thank You Letter, Antibiotic Education, Prescription Opioid Use. Follow up: Private Physician; When: 2 - 3 days; Reason: Re-evaluation by your physician. Problem is an ongoing problem. Symptoms have improved.
--- NOTE | 2018-12-22 08:17 | RAD REPORT ---
EXAM DESCRIPTION: RAD - Chest Single View - 12/22/2018 12:45 am CLINICAL HISTORY: Dysphagia, pain COMPARISON: June 2018 TECHNIQUE: AP portable chest image was obtained 0021 hours . FINDINGS: Lungs are clear. Heart and vasculature are normal. No measurable pleural effusion and no p neumothorax. No acute bony abnormality seen. No acute aortic findings suspected. IMPRESSION: No acute cardiopulmonary process. No significant interval change.
--- NOTE | 2018-12-23 11:35 | EKG ---
Test Date: 2018-12-21 Test Time: 22:44:10 Software Solutions Architect: JUSTINA MEASUREMENT RESULTS: Intervals: Rate: 76 NM: 142 QRSD: 86 QT: 410 QTc: 461 [place]: P: 17 NM: 142 QRS: -14 T: 43 INTERPRETIVE STATEMENTS: Normal sinus rhythm Moderate voltage criteria for LVH, may be normal variant Borderline ECG Compared to ECG 06/26/2018 10:32:08 Left ventricular hypertrophy now present T-wave abnormality no longer present Electronically Signed On 12-22-18 10:48:47 CDT by Obie Sebastian
== END 2018-12-22 02:55 | disposition home or self-care (01) ==
LOC: ER 22:07
DX: I10 Essential (primary) hypertension (principal); E11.9 Type 2 diabetes mellitus without complications; Z88.8 Allergy status to other drugs, medicaments and biological substances
CPT/HCPCS: 36415; 71045; 80048; 80076; 83735; 83880; 84484; 85025; 85610; 93005; 96374; 96375; 99285; J0360

== ENCOUNTER 2019-10-13 09:44 | Emergency (ER) | payer SELFPAY ==
--- OUTSIDE RECORDS SUMMARY | 2019-10-13 09:47 | XMS REPORT ---
:1965 Author Organization [facility] Address [address] [place] [address] Dr. Lamb [address] [place] [id number] Care Team Providers Name Role Phone Unavailable Unavailable Unavailable Problems This patient has no known problems. Allergies, Adverse Reactions, Alerts This patient has no known allergies or adverse reactions. Medications This patient has no known medications.
[2019-10-13 11:07] LABS: Urine Blood 2+ (NEG); Urine Glucose TRACE (NEG); Urine Protein NEGATIVE (NEG); Urine Specific Gravity <1.005 (1.005-1.030)
[2019-10-13] MEDS ORDERED: Levofloxacin 750mg IV 0 MG/0 ML BAG IV ONE (11:47)
[2019-10-13] MEDS ORDERED: METRONIDAZOLE 500mg IVPB 0 MG/0 ML BAG IV ONE (11:47)
[2019-10-13] MEDS ORDERED: NA CHLORIDE 0.9% 0 ML ONE (11:47)
[2019-10-13 11:49] LABS: Absolute Lymphocytes (CBC) 1.5 K/uL (0.7-4.9); Basophils % 0.9 % (0-1.3); Hematocrit 43.1 % (36.0-45.0); Lymphocytes % 23.4 % (15.3-44.8); MPV 8.4 fL (7.6-11.3); RBC Red Blood Cell Count 4.69 M/uL (3.86-4.86)
[2019-10-13 11:57] LABS: Protime INR 0.95
[2019-10-13 12:08] LABS: ALT/SGPT 29 U/L (12-78); AST/SGOT 14 U/L (15-37); Albumin 3.9 g/dL (3.4-5.0); Alkaline Phosphatase 131 U/L (45-117); BUN Blood Urea Nitrogen 8 mg/dL (7-18); Bicarbonate 30 mmol/L (21-32); Bilirubin Direct 0.1 mg/dL (0-0.2); Bilirubin Total 0.4 mg/dL (0.2-1.0); Glucose Level 176 mg/dL (74-106); Lipase 137 U/L (73-393); Magnesium 2.3 mg/dL (1.8-2.4); NT PRO-BNP 57 pg/mL (<125); Potassium 3.9 mmol/L (3.5-5.1); Sodium Level 137 mmol/L (136-145); Troponin (Emerg Dept Use Only) < 0.02 ng/mL (0.0-0.045)
--- NOTE | 2019-10-13 12:34 | RAD REPORT ---
EXAM DESCRIPTION: CT - Angio Aorta For Dissection - 10/13/2019 12:21 pm CLINICAL HISTORY: Abdominal distention;Pain;PE;Dissection, pain radiating to the back COMPARISON: None. TECHNIQUE: Dynamically enhanced 3 mm thick images of the chest, abdomen, and upper pelvis were obtai garcia during administration of approximately 150mL Isovue 370 IV contrast. Sagittal and coronal reconst ruction images were generated using MIP and reviewed. Exam utilizes a protocol to evaluate entire cou rse of the aorta. All CT scans are performed using dose optimization technique as appropriate and may include automated exposure control or mA/KV adjustment according to patient size. FINDINGS: Aorta is normal in diameter with no dissection or other acute aortic findings. Reconstruct ion images show no significant findings. Mild calcifications are seen along the abdominal aortic wall . Aortic arch is 3 vessel configuration with no origins stenoses. Left subclavian artery is negative. Right subclavian artery is more limited due to adjacent artifact from contrast. No abnormality suspe cted. Pulmonary arteries are normal as well. No cardiomegaly, pericardial thickening or pericardial effusio n. No mass or infiltrate in the lung parenchyma. No pleural thickening, pleural effusion or pneumothorax . No abnormal mediastinal or hilar mass or lymphadenopathy seen. No chest wall mass or abnormal axillar y lymphadenopathy. Celiac, SMA and renal arteries show no suspicious findings. Solid abdominal viscera and bowel show no significant findings. Fatty infiltration of the liver is likely present. No mass or abnormal lympha denopathy. No free air, free fluid or inflammatory stranding. No urinary bladder abnormality. Uterus and ovaries show no suspicious findings. No CT findings of cystitis or pyelonephritis. IMPRESSION: Negative CT scan of the aorta for acute or significant finding. No other acutely significant findings on chest, abdomen and upper pelvis examination.
--- NOTE | 2019-10-13 12:45 | RAD REPORT ---
EXAM DESCRIPTION: RAD - Chest Single View - 10/13/2019 12:37 pm CLINICAL HISTORY: ABDOMINAL DISTENTION COMPARISON: Chest Single View dated 12/22/2018 TECHNIQUE: AP portable chest image was obtained 10/13/2019 12:37 pm . FINDINGS: Lungs are clear. Interstitial pattern is not substantially different from comparison. Hear t and vasculature are normal. No measurable pleural effusion and no pneumothorax. No acute bony abnor mality seen. No acute aortic findings suspected. IMPRESSION: No acute cardiopulmonary process. No significant change from comparison.
--- NOTE | 2019-10-13 13:58 | ER ---
Nurse's Notes [facility] Name: Yolanda Lowe Age: 54 yrs Sex: Female : 1965 Arrival Date: 10/13/2019 Time: 09:46 Bed 19 Private MD: Diagnosis: Abdominal tenderness;Type 2 diabetes mellitus;Chest pain, unspecified;Essential (primary) hypertension Presentation: 10/13 09:54 Presenting complaint: Patient states: lower abd pain radiating to back, has blood on iw toilet paper when she wipes X 4-5 days , c/o pain to suprapubic area after she urinates. Transition of care: patient was not received from another setting of care. Onset of symptoms was October 08, 2019. Risk Assessment: Do you want to hurt yourself or someone else? Patient reports no desire to harm self or others. Initial Sepsis Screen: Does the patient meet any 2 criteria? No. Patient's initial sepsis screen is negative. Does the patient have a suspected source of infection? No. Patient's initial sepsis screen is negative. Care prior to arrival: None. 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 - Coronavirus screen:: The patient has NOT traveled to [place], [place], or [place] in the past 14 days. Proceed with normal triage process as indicated. - Social history:: Smoking status: Patient denies any tobacco usage or history of. - Family history:: not pertinent. - Ebola Screening: : Patient negative for fever greater than or equal to 101.5 degrees Fahrenheit, and additional compatible Ebola Virus Disease symptoms Patient denies exposure to infectious person Patient denies travel to an Ebola-affected area in the 21 days before illness onset No symptoms or risks identified at this time. Screenin:42 Abuse screen: Denies threats or abuse. Denies injuries from another. Nutritional sv screening: No deficits noted. Tuberculosis screening: No symptoms or risk factors identified. Fall Risk None identified. Assessment: 10:42 General: Appears in no apparent distress. uncomfortable, well developed, Behavior is sv calm, cooperative, appropriate for age. Pain: Complains of pain in anterior aspect of right upper chest, right breast, suprapubic area, posterior aspect of right lateral abdomen and posterior aspect of left lateral abdomen Pain currently is 6 out of 10 on a pain scale. Quality of pain is described as dull, Pain began 4-5 days ago Is intermittent, Noted to be grimacing, with movement. Neuro: Level of Consciousness is awake, alert, obeys commands, Oriented to person, place, time, situation, Moves all extremities. Full function. Cardiovascular: Heart tones S1 S2 present Patient's skin is warm and dry. Pulses are 3+ in right radial artery and left radial artery Chest pain is described as mild, quality is dull is located in right chest wall radiates none began 4 days ago episodes are intermittent. Respiratory: Airway is patent Respiratory effort is even, unlabored, Respiratory pattern is regular, symmetrical, Breath sounds are clear bilaterally. GI: Abdomen is round Stools are reported to be normal. Bowel sounds present X 4 quads. Reports lower abdominal pain, normal bowel habits. GI: Reports suprapubic pressure/pulsating sensation. : Reports burning with urination, after urination discharge, bloody discharge, pt is unsure if it is coming from the vaginal or urethra area. Derm: Skin is pink, warm \T\ dry. 12:00 Reassessment: Patient appears in no apparent distress at this time. No changes from sv previously documented assessment. Patient and/or family updated on plan of care and expected duration. Pain level reassessed. Patient is alert, oriented x 3, equal unlabored respirations, skin warm/dry/pink. 14:30 Reassessment: Patient appears in no apparent distress at this time. No changes from sv previously documented assessment. Patient and/or family updated on plan of care and expected duration. Pain level reassessed. Patient is alert, oriented x 3, equal unlabored respirations, skin warm/dry/pink. Vital Signs: 09:57 BP 187 / 88; Pulse 74; Resp 16; Temp 98.7; Pulse Ox 100% on R/A; Weight 78.02 kg; iw Height 5 ft. (152.40 cm); Pain 6/10; 10:30 BP 163 / 84; Pulse 67; Resp 16; Temp 98.5(O); Pulse Ox 99% on R/A; mh5 11:54 BP 173 / 88; Pulse 70; Resp 16; Temp 98.2(O); Pulse Ox 98% on R/A; mh5 13:25 BP 181 / 93; Pulse 74; Resp 16; Pulse Ox 100% ; sv 09:57 Body Mass Index 33.59 (78.02 kg, 152.40 cm) iw ED Course: 09:46 Patient arrived in ED. rg4 09:55 Triage completed. iw 09:57 Arm band placed on. iw 10:23 Patient has correct armband on for positive identification. Placed in gown. Bed in low mh5 position. Call light in reach. Adult w/ patient. Warm blanket given. Pulse ox on. NIBP on. 10:25 Efrem Buitrago MD is Attending Physician. jessica 10:30 Urine Dipstick--Ancillary (enter results) Sent. [facility] 10:42 Carolyn Delgadillo, RN is Primary Nurse. sv 12:21 CT Aorta for Dissection In Process Unspecified. EDMS 12:36 XRAY Chest (1 view) In Process Unspecified. EDMS 13:57 Willi Corado MD is Referral Physician. jessica 13:57 Dante Ibarra MD is Referral Physician. jessica 14:30 No provider procedures requiring assistance completed. IV discontinued, intact, sv bleeding controlled, No redness/swelling at site. Pressure dressing applied. Administered Medications: 13:53 Not Given (Duplicate Order): levofloxacin 750 mg 150 ml IVPB once over 90 mins jessica 13:53 Not Given (Duplicate Order): Flagyl 500 mg 100 ml IVPB at 200 ml/hr once over 30 mins jessica 14:30 Drug: Cipro 500 mg Route: PO; sv 14:30 Follow up: Response: No adverse reaction; Medication administered at discharge. sv 14:30 Drug: Flagyl 500 mg Route: PO; sv 14:30 Follow up: Response: Medication administered at discharge. sv 14:30 Drug: Aspirin 162 mg Route: PO; sv 14:30 Follow up: Response: Medication administered at discharge. sv 18:29 Not Given (Physician Discretion): NS 0.9% 1000 ml IV at 1 bolus Per protocol; 1000 mL sv bolus Outcome: 13:58 Discharge ordered by . jessica 14:30 Patient left the ED. sv 14:30 Discharged to home ambulatory, with family. sv 14:30 Condition: stable 14:30 Discharge instructions given to patient, Instructed on discharge instructions, follow up and referral plans. medication usage, Demonstrated understanding of instructions, follow-up care, medications, Prescriptions given X 3. Signatures: Dispatcher [employer] Carolyn Chun, Efrem Pires RN, MD MD cha Williams, Irene, RN Argenis García [facility] Yolanda Joiner [facility]
--- NOTE | 2019-10-13 13:58 | EDPHYS ---
Physician Documentation [facility] Name: Yolanda Lowe Age: 54 yrs Sex: Female : 1965 Arrival Date: 10/13/2019 Time: 09:46 Bed 19 Private MD: Efrem Saul HPI: 10/13 11:09 This 54 yrs old Female presents to ER via Ambulatory with complaints of Back jessica Pain, Abdominal Pain. 11:09 The patient or guardian reports chest pain that is located primarily in the anterior jessica chest wall, right. Onset: 3 day(s) ago. The patient presents with abdominal pain in the lower abdomen. Onset: The symptoms/episode began/occurred 3 day(s) ago. The patient presents with pain that is acute. The symptoms are located in the low back. Onset: The symptoms/episode began/occurred 3 day(s) ago. The pain does not radiate. Associated signs and symptoms: The patient has no apparent associated signs or symptoms. Modifying factors: The patient symptoms are alleviated by nothing, the patient symptoms are aggravated by any movement, movement, standing. Modifying factors: The symptoms are alleviated by nothing, the symptoms are aggravated by nothing. Associated signs and symptoms: The patient has no apparent associated signs or symptoms. The chest pain is described as aching, a pressure. 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 - Coronavirus screen:: The patient has NOT traveled to [place], [place], or [place] in the past 14 days. Proceed with normal triage process as indicated. - Social history:: Smoking status: Patient denies any tobacco usage or history of. - Family history:: not pertinent. - Ebola Screening: : Patient negative for fever greater than or equal to 101.5 degrees Fahrenheit, and additional compatible Ebola Virus Disease symptoms Patient denies exposure to infectious person Patient denies travel to an Ebola-affected area in the 21 days before illness onset No symptoms or risks identified at this time. ROS: 11:09 Constitutional: Negative for fever, chills, and weight loss, Eyes: Negative for injury, jessica pain, redness, and discharge, ENT: Negative for injury, pain, and discharge, Neck: Negative for injury, pain, and swelling, Cardiovascular: Negative for chest pain, palpitations, and edema, Respiratory: Negative for shortness of breath, cough, wheezing, and pleuritic chest pain, Back: Negative for injury and pain, : Negative for injury, bleeding, discharge, and swelling, MS/Extremity: Negative for injury and deformity, Skin: Negative for injury, rash, and discoloration, Neuro: Negative for headache, weakness, numbness, tingling, and seizure, Psych: Negative for depression, anxiety, suicide ideation, homicidal ideation, and hallucinations, Allergy/Immunology: Negative for hives, rash, and allergies, Endocrine: Negative for neck swelling, polydipsia, polyuria, polyphagia, and marked weight changes, Hematologic/Lymphatic: Negative for swollen nodes, abnormal bleeding, and unusual bruising. 11:09 Abdomen/GI: Positive for abdominal pain, of the right lower quadrant and left lower quadrant. Exam: 11:09 Constitutional: This is a well developed, well nourished patient who is awake, alert, jessica and in no acute distress. Head/Face: Normocephalic, atraumatic. Eyes: Pupils equal round and reactive to light, extra-ocular motions intact. Lids and lashes normal. Conjunctiva and sclera are non-icteric and not injected. Cornea within normal limits. Periorbital areas with no swelling, redness, or edema. ENT: Nares patent. No nasal discharge, no septal abnormalities noted. Tympanic membranes are normal and external auditory canals are clear. Oropharynx with no redness, swelling, or masses, exudates, or evidence of obstruction, uvula midline. Mucous membranes moist. Neck: Trachea midline, no thyromegaly or masses palpated, and no cervical lymphadenopathy. Supple, full range of motion without nuchal rigidity, or vertebral point tenderness. No Meningismus. Chest/axilla: Normal chest wall appearance and motion. Nontender with no deformity. No lesions are appreciated. Cardiovascular: Regular rate and rhythm with a normal S1 and S2. No gallops, murmurs, or rubs. Normal PMI, no JVD. No pulse deficits. Respiratory: Lungs have equal breath sounds bilaterally, clear to auscultation and percussion. No rales, rhonchi or wheezes noted. No increased work of breathing, no retractions or nasal flaring. Back: No spinal tenderness. No costovertebral tenderness. Full range of motion. Female : Normal external genitalia. Skin: Warm, dry with normal turgor. Normal color with no rashes, no lesions, and no evidence of cellulitis. MS/ Extremity: Pulses equal, no cyanosis. Neurovascular intact. Full, normal range of motion. Neuro: Awake and alert, GCS 15, oriented to person, place, time, and situation. Cranial nerves II-XII grossly intact. Motor strength 5/5 in all extremities. Sensory grossly intact. Cerebellar exam normal. Normal gait. Psych: Awake, alert, with orientation to person, place and time. Behavior, mood, and affect are within normal limits. 11:09 Abdomen/GI: Inspection: abdomen appears normal, Bowel sounds: normal, Palpation: moderate abdominal tenderness, in the right lower quadrant and left lower quadrant, Liver: no appreciated palpable abnormalities, Hernia: not appreciated. 11:09 Musculoskeletal/extremity: DVT Exam: No signs of deep vein thrombosis. no pain, no swelling, no tenderness, negative Homans' sign noted on exam, no appreciated bluish discoloration, no erythema, no increased warmth. Vital Signs: 09:57 BP 187 / 88; Pulse 74; Resp 16; Temp 98.7; Pulse Ox 100% on R/A; Weight 78.02 kg; iw Height 5 ft. (152.40 cm); Pain 6/10; 10:30 BP 163 / 84; Pulse 67; Resp 16; Temp 98.5(O); Pulse Ox 99% on R/A; mh5 11:54 BP 173 / 88; Pulse 70; Resp 16; Temp 98.2(O); Pulse Ox 98% on R/A; mh5 13:25 BP 181 / 93; Pulse 74; Resp 16; Pulse Ox 100% ; sv 09:57 Body Mass Index 33.59 (78.02 kg, 152.40 cm) iw MDM: 10:25 Patient medically screened. [facility] 11:12 Data reviewed: vital signs, nurses notes, lab test result(s), EKG, radiologic studies, [facility] CT scan, plain films. 10/13 10:28 Order name: Urine Dipstick--Ancillary (enter results); Complete Time: 13:49 10/13 11:09 Order name: Basic Metabolic Panel; Complete Time: 13:49 [facility] 10/13 11:09 Order name: CBC with Diff; Complete Time: 13:49 [facility] 10/13 11:09 Order name: LFT's; Complete Time: 13:49 [facility] 10/13 11:09 Order name: Magnesium; Complete Time: 13:49 [facility] 10/13 11:09 Order name: NT PRO-BNP; Complete Time: 13:49 [facility] 10/13 11:09 Order name: PT-INR; Complete Time: 13:49 [facility] 10/13 11:09 Order name: Troponin (emerg Dept Use Only); Complete Time: 13:49 [facility] 10/13 11:09 Order name: XRAY Chest (1 view); Complete Time: 13:49 [facility] 10/13 11:09 Order name: Lipase; Complete Time: 13:49 [facility] 10/13 11:09 Order name: Urine Culture [facility] 10/13 11:09 Order name: CT Aorta for Dissection; Complete Time: 13:49 [facility] 10/13 11:09 Order name: EKG; Complete Time: 11:10 [facility] 10/13 11:09 Order name: Cardiac monitoring; Complete Time: 18:30 [facility] 10/13 11:09 Order name: EKG - Nurse/Tech; Complete Time: 18:30 [facility] 10/13 11:09 Order name: IV Saline Lock; Complete Time: 18:30 [facility] 10/13 11:09 Order name: Labs collected and sent; Complete Time: 18:30 [facility] 10/13 11:09 Order name: O2 Per Protocol; Complete Time: 18:30 [facility] 10/13 11:09 Order name: O2 Sat Monitoring; Complete Time: 18:30 [facility] 10/13 11:09 Order name: Urine Dipstick-Ancillary (obtain specimen); Complete Time: 11:23 [facility] 10/13 11:09 Order name: Urine Test (obtain specimen); Complete Time: 11:23 [facility] Administered Medications: 13:53 Not Given (Duplicate Order): levofloxacin 750 mg 150 ml IVPB once over 90 mins jessica 13:53 Not Given (Duplicate Order): Flagyl 500 mg 100 ml IVPB at 200 ml/hr once over 30 mins jessica 14:30 Drug: Cipro 500 mg Route: PO; sv 14:30 Follow up: Response: No adverse reaction; Medication administered at discharge. sv 14:30 Drug: Flagyl 500 mg Route: PO; sv 14:30 Follow up: Response: Medication administered at discharge. sv 14:30 Drug: Aspirin 162 mg Route: PO; sv 14:30 Follow up: Response: Medication administered at discharge. sv 18:29 Not Given (Physician Discretion): NS 0.9% 1000 ml IV at 1 bolus Per protocol; 1000 mL sv bolus Disposition: 10/13/19 13:58 Discharged to Home. Impression: Abdominal tenderness, Type 2 diabetes mellitus, Chest pain, unspecified, Essential (primary) hypertension. - Condition is Stable. - Discharge Instructions: Abdominal Pain, Adult, Nonspecific Chest Pain, Type 2 Diabetes Mellitus, Diagnosis, Adult, Hypertension, Abdominal Pain, Adult, [id number], Nonspecific Chest Pain, [id number], Hypertension, [id number], How to Take Your Blood Pressure, [id number], Aspirin and Your Heart, Type 2 Diabetes Mellitus, Diagnosis, Adult, [id number], Managing Your Hypertension. - Prescriptions for Bentyl 20 mg Oral Tablet - take 1 tablet by ORAL route every 6 hours As needed; 20 tablet. Flagyl 500 mg Oral Tablet - take 1 tablet by ORAL route every 12 hours for 7 days; 14 tablet. Cipro 500 mg Oral Tablet - take 1 tablet by ORAL route every 12 hours for 7 days; 14 tablet. - Medication Reconciliation Form, Thank You Letter, Antibiotic Education, Prescription Opioid Use form. - Follow up: Private Physician; When: 2 - 3 days; Reason: Recheck today's complaints, Continuance of care, Re-evaluation by your physician. Follow up: Willi Corado MD; When: 2 - 3 days; Reason: Recheck today's complaints, Re-evaluation by your physician. Follow up: Dante Ibarra MD; When: 2 - 3 days; Reason: Recheck today's complaints, Re-evaluation by your physician. - Problem is new. - Symptoms have improved. Signatures: Dispatcher [employer] EDMS Elie, Carolyn, RN RN sv Iftikhar, Efrem, MD MD jessica Oleg, Yelena, RN RN iw Corrections: (The following items were deleted from the chart) 14:30 13:58 10/13/2019 13:58 Discharged to Home. Impression: Abdominal tenderness; Type 2 sv diabetes mellitus; Chest pain, unspecified; Essential (primary) hypertension. Condition is Stable. Forms are Medication Reconciliation Form, Thank You Letter, Antibiotic Education, Prescription Opioid Use. Follow up: Private Physician; When: 2 - 3 days; Reason: Recheck today's complaints, Continuance of care, Re-evaluation by your physician. Follow up: Willi Corado; When: 2 - 3 days; Reason: Recheck today's complaints, Re-evaluation by your physician. Follow up: Dante Ibarra; When: 2 - 3 days; Reason: Recheck today's complaints, Re-evaluation by your physician. Problem is new. Symptoms have improved. jessica
[2019-10-13] MEDS ORDERED: ASPIRIN 81 MG CHEWABLE TABLET ONE (14:17)
[2019-10-13] MEDS ORDERED: CIPROFLOXACIN HCL 500 MG TAB ONE (14:17)
[2019-10-13] MEDS ORDERED: metroNIDAZOLE 500 MG TABLET ONE (14:17)
[2019-10-13 14:59] VITALS: TEMP 98.2
[2019-10-13 15:01] VITALS: BP 181/93; O2SAT 100
--- NOTE | 2019-10-13 15:53 | EKG ---
Test Date: 2019-10-13 Test Time: 11:37:55 Business Management Analyst: SANJAY MEASUREMENT RESULTS: Intervals: Rate: 75 AL: 170 QRSD: 88 QT: 432 QTc: 482 [place]: P: 38 AL: 170 QRS: -19 T: 50 INTERPRETIVE STATEMENTS: Normal sinus rhythm Cannot rule out Anterior infarct, age undetermined Abnormal ECG Compared to ECG 12/21/2018 22:44:10 Myocardial infarct finding now present Left ventricular hypertrophy no longer present Electronically Signed On 10-13-19 15:51:33 STUDENT OFFICER by Dante Ibarra
== END 2019-10-13 14:30 | disposition home or self-care (01) ==
LOC: ER 09:44
DX: R07.9 Chest pain, unspecified (principal); I10 Essential (primary) hypertension; E11.9 Type 2 diabetes mellitus without complications; Z88.5 Allergy status to narcotic agent
CPT/HCPCS: 36415; 71045; 71275; 74175; 80048; 80076; 81003; 83690; 83735; 83880; 84484; 85025; 85610; 87086; 87088; 93005; 99284; J7030; Q9967

== ENCOUNTER 2021-01-11 15:18 | Emergency (ER) | payer SELFPAY ==
--- OUTSIDE RECORDS SUMMARY | 2021-01-11 15:21 | XMS REPORT | Continuity of Care Document ---
:1965 Author Organization [facility] Address [address] [place] [address] Dr. Lamb [address] [place] [id number] Care Team Providers Name Role Phone Unavailable Unavailable Unavailable Problems This patient has no known problems. Allergies, Adverse Reactions, Alerts This patient has no known allergies or adverse reactions. Medications This patient has no known medications. Procedures This patient has no known procedures. Results This patient has no known results.
[2021-01-11] MEDS ORDERED: HYDRALAZINE HCL 20 MG/ML VIAL ONE (16:34)
[2021-01-11 16:46] LABS: Absolute Lymphocytes (CBC) 1.6 K/uL (0.7-4.9); Basophils % 0.5 % (0-1.3); Hematocrit 43.3 % (36.0-45.0); Lymphocytes % 22.9 % (15.3-44.8); MPV 8.5 fL (7.6-11.3); RBC Red Blood Cell Count 4.78 M/uL (3.86-4.86)
[2021-01-11 17:01] LABS: Protime INR 0.99
[2021-01-11 17:12] LABS: ALT/SGPT 29 U/L (12-78); AST/SGOT 12 U/L (15-37); Alkaline Phosphatase 123 U/L (45-117); BUN Blood Urea Nitrogen 9 mg/dL (7-18); Bicarbonate 29 mmol/L (21-32); Bilirubin Direct 0.1 mg/dL (0-0.2); Bilirubin Total 0.6 mg/dL (0.2-1.0); Glucose Level 152 mg/dL (74-106); Magnesium 2.3 mg/dL (1.8-2.4); NT PRO-BNP 106 pg/mL (<125); Potassium 3.9 mmol/L (3.5-5.1); Protein, Total 7.9 g/dL (6.4-8.2); Sodium Level 138 mmol/L (136-145); Troponin (Emerg Dept Use Only) < 0.02 ng/mL (0.0-0.045)
--- NOTE | 2021-01-11 18:17 | RAD REPORT ---
EXAM DESCRIPTION: RAD - Chest Single View - 01/11/2021 5:38 pm CLINICAL HISTORY: CHEST PAIN Chest pain. COMPARISON: Chest Single View dated 10/13/2019; Chest Single View dated 12/22/2018; Chest Single View d ated 06/26/2018; Chest Pa And Lat (2 Views) dated 10/11/2017 FINDINGS: Portable technique limits examination quality. The lungs are grossly clear. The heart is normal in size. No displaced fractures. IMPRESSION: No acute intrathoracic process suspected.
--- NOTE | 2021-01-11 18:18 | ER ---
Nurse's Notes [facility] Name: Yolanda Lowe Age: 55 yrs Sex: Female : 1965 Arrival Date: 01/11/2021 Time: 15:22 Bed 4 Private MD: Diagnosis: Hypertensive Urgency Presentation: 01/11 15:59 Chief complaint: Patient states: went to the clinic and was told to come to ED for BP em of 220/100s, ran out of medication 2 months ago, reports mild chest discomfort, rates pain 3/10, denies SOB, N/V or dizziness. Coronavirus screen: Client denies travel out of the [place] in the last 14 days. Ebola Screen: Patient negative for fever greater than or equal to 101.5 degrees Fahrenheit, and additional compatible Ebola Virus Disease symptoms Patient denies exposure to infectious person. Patient denies travel to an Ebola-affected area in the 21 days before illness onset. No symptoms or risks identified at this time. Initial Sepsis Screen: Does the patient meet any 2 criteria? No. Patient's initial sepsis screen is negative. Does the patient have a suspected source of infection? No. Patient's initial sepsis screen is negative. Risk Assessment: Do you want to hurt yourself or someone else? Patient reports no desire to harm self or others. Onset of symptoms was January 11, 2021. 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 - Social history:: Smoking status: Patient denies any tobacco usage or history of. Screenin:20 Abuse screen: Denies threats or abuse. Nutritional screening: No deficits noted. vg1 Tuberculosis screening: No symptoms or risk factors identified. Fall Risk No fall in past 12 months (0 pts). No secondary diagnosis (0 pts). IV access (20 points). Ambulatory Aid- None/Bed Rest/Nurse Assist (0 pts). Gait- Normal/Bed Rest/Wheelchair (0 pts) Mental Status- Oriented to own ability (0 pts). Total Sheth Fall Scale indicates No Risk (0-24 pts). Assessment: 16:17 General: Appears in no apparent distress. comfortable, Behavior is calm, cooperative. vg1 Pain: Denies pain. Neuro: Level of Consciousness is awake, alert, obeys commands, Oriented to person, place, time, situation. Cardiovascular: Patient's skin is warm and dry. Respiratory: Airway is patent Respiratory effort is even, unlabored. GI: Patient currently denies diarrhea, pain, vomiting. : No signs and/or symptoms were reported regarding the genitourinary system. EENT: No signs and/or symptoms were reported regarding the EENT system. Derm: Skin is intact, is healthy with good turgor. Musculoskeletal: Circulation, motion, and sensation intact. 18:20 Reassessment: Patient appears in no apparent distress at this time. No changes from vg1 previously documented assessment. Patient and/or family updated on plan of care and expected duration. Pain level reassessed. Patient is alert, oriented x 3, equal unlabored respirations, skin warm/dry/pink. Vital Signs: 15:59 BP 217 / 110; Pulse 84; Resp 18; Temp 98.1(O); Pulse Ox 100% on R/A; Weight 76.66 kg; em Height 5 ft. 1 in. (154.94 cm); Pain 3/10; 16:38 BP 199 / 96; Pulse 86; Resp 16; Pulse Ox 100% on R/A; vg1 17:15 BP 151 / 90; Pulse 83; Resp 21; Pulse Ox 97% ; sv 17:55 BP 174 / 93; Pulse 87; Resp 17; Pulse Ox 99% ; sv 18:30 BP 188 / 96; Pulse 82; Resp 16; Pulse Ox 100% on R/A; vg1 15:59 Body Mass Index 31.93 (76.66 kg, 154.94 cm) em ED Course: 15:22 Patient arrived in ED. mr 16:03 Triage completed. em 16:04 Arm band placed on. em 16:07 Kari Bennett, RN is Primary Nurse. vg1 16:08 Miguel Neville PA is PHCP. jr8 16:08 Timi Trujillo MD is Attending Physician. jr8 16:20 Patient has correct armband on for positive identification. Placed in gown. Bed in low vg1 position. Call light in reach. Side rails up X 1. Adult w/ patient. 16:36 Initial lab(s) drawn, by me, sent to lab. Inserted saline lock: 20 gauge in right vg1 antecubital area, using aseptic technique. Blood collected. 17:16 Awaiting for x-ray. sv 17:37 XRAY Chest (1 view) In Process Unspecified. EDMS 18:42 No provider procedures requiring assistance completed. IV discontinued, intact, vg1 bleeding controlled, No redness/swelling at site. Pressure dressing applied. Administered Medications: 16:38 Drug: hydrALAZINE 10 mg Route: IV; Rate: calculated rate; Site: right antecubital; vg1 17:29 Follow up: Response: No adverse reaction; Blood pressure is lowered; IV Status: vg1 Completed infusion 18:33 Drug: amLODIPine 10 mg Route: PO; vg1 18:34 Follow up: Response: Medication administered at discharge. vg1 Outcome: 18:18 Discharge ordered by . jr8 18:42 Discharged to home ambulatory, with family. vg1 18:42 Condition: stable 18:42 Discharge instructions given to patient, Instructed on discharge instructions, follow up and referral plans. medication usage, Demonstrated understanding of instructions, follow-up care, medications, Prescriptions given X 2. 18:42 Patient left the ED. vg1 Signatures: Dispatcher [employer] EDMS Carolyn Delgadillo RN RN GuerraElvira mr Chin Sullivan, RN RN Miguel Neville PA PA jr8 Kari Bennett, RN RN vg1
--- NOTE | 2021-01-11 18:18 | EDPHYS ---
Physician Documentation [facility] Name: Yolanda Lowe Age: 55 yrs Sex: Female : 1965 Arrival Date: 01/11/2021 Time: 15:22 Bed 4 Private MD: ED Physician Timi Trujillo HPI: 01/11 18:05 This 55 yrs old Female presents to ER via Ambulatory with complaints of High jr8 Blood Pressure. 18:05 The patient has elevated blood pressure and discovered this at a physician's office, [facility] and sent to the emergency department for evaluation. Onset: The symptoms/episode began/occurred acutely, today. Associated signs and symptoms: Pertinent positives: headache, lightheadedness. Severity of symptoms: At its worst the blood pressure was moderate, in the emergency department the blood pressure is unchanged. It is unknown whether or not the patient has had similar symptoms in the past. The patient has been recently seen by a physician:. Patient stated that she has been out of her medications for 2 months. When seen by PCP today sent her to ED for evaluation . 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 - Social history:: Smoking status: Patient denies any tobacco usage or history of. ROS: 18:05 Eyes: Negative for injury, pain, redness, and discharge, ENT: Negative for injury, jr8 pain, and discharge, Neck: Negative for injury, pain, and swelling, Cardiovascular: Negative for chest pain, palpitations, and edema, Respiratory: Negative for shortness of breath, cough, wheezing, and pleuritic chest pain, Abdomen/GI: Negative for abdominal pain, nausea, vomiting, diarrhea, and constipation, Back: Negative for injury and pain, MS/Extremity: Negative for injury and deformity, Skin: Negative for injury, rash, and discoloration. 18:05 Neuro: Positive for headache. Exam: 18:05 Eyes: Pupils equal round and reactive to light, extra-ocular motions intact. Lids and jr8 lashes normal. Conjunctiva and sclera are non-icteric and not injected. Cornea within normal limits. Periorbital areas with no swelling, redness, or edema. ENT: Nares patent. No nasal discharge, no septal abnormalities noted. Tympanic membranes are normal and external auditory canals are clear. Oropharynx with no redness, swelling, or masses, exudates, or evidence of obstruction, uvula midline. Mucous membranes moist. Neck: Trachea midline, no thyromegaly or masses palpated, and no cervical lymphadenopathy. Supple, full range of motion without nuchal rigidity, or vertebral point tenderness. No Meningismus. Cardiovascular: Regular rate and rhythm with a normal S1 and S2. No gallops, murmurs, or rubs. Normal PMI, no JVD. No pulse deficits. Respiratory: Lungs have equal breath sounds bilaterally, clear to auscultation and percussion. No rales, rhonchi or wheezes noted. No increased work of breathing, no retractions or nasal flaring. Abdomen/GI: Soft, non-tender, with normal bowel sounds. No distension or tympany. No guarding or rebound. No evidence of tenderness throughout. Back: No spinal tenderness. No costovertebral tenderness. Full range of motion. Skin: Warm, dry with normal turgor. Normal color with no rashes, no lesions, and no evidence of cellulitis. MS/ Extremity: Pulses equal, no cyanosis. Neurovascular intact. Full, normal range of motion. Neuro: Awake and alert, GCS 15, oriented to person, place, time, and situation. Cranial nerves II-XII grossly intact. Motor strength 5/5 in all extremities. Sensory grossly intact. Cerebellar exam normal. Normal gait. Vital Signs: 15:59 BP 217 / 110; Pulse 84; Resp 18; Temp 98.1(O); Pulse Ox 100% on R/A; Weight 76.66 kg; em Height 5 ft. 1 in. (154.94 cm); Pain 3/10; 16:38 BP 199 / 96; Pulse 86; Resp 16; Pulse Ox 100% on R/A; vg1 17:15 BP 151 / 90; Pulse 83; Resp 21; Pulse Ox 97% ; sv 17:55 BP 174 / 93; Pulse 87; Resp 17; Pulse Ox 99% ; sv 18:30 BP 188 / 96; Pulse 82; Resp 16; Pulse Ox 100% on R/A; vg1 15:59 Body Mass Index 31.93 (76.66 kg, 154.94 cm) em MDM: 16:10 Patient medically screened. 18:05 Data reviewed: vital signs, nurses notes, lab test result(s), EKG, radiologic studies, jr8 plain films. Data interpreted: Pulse oximetry: on room air is 99 %. Interpretation: normal. Counseling: I had a detailed discussion with the patient and/or guardian regarding: the historical points, exam findings, and any diagnostic results supporting the discharge/admit diagnosis, lab results, radiology results, the need for outpatient follow up, a family practitioner, to return to the emergency department if symptoms worsen or persist or if there are any questions or concerns that arise at home. 01/11 16:09 Order name: Basic Metabolic Panel; Complete Time: 18:05 [facility] 01/11 16:09 Order name: CBC with Diff; Complete Time: 16:59 [facility] 01/11 16:09 Order name: LFT's; Complete Time: 18:05 [facility] 01/11 16:09 Order name: Magnesium; Complete Time: 18:05 [facility] 01/11 16:09 Order name: NT PRO-BNP; Complete Time: 18:05 [facility] 01/11 16:09 Order name: PT-INR; Complete Time: 18:05 [facility] 01/11 16:09 Order name: Troponin (emerg Dept Use Only); Complete Time: 18:05 [facility] 01/11 16:09 Order name: XRAY Chest (1 view); Complete Time: 18:20 [facility] 01/11 16:09 Order name: EKG; Complete Time: 16:10 [facility] 01/11 16:09 Order name: Cardiac monitoring; Complete Time: 16:39 [facility] 01/11 16:09 Order name: EKG - Nurse/Tech; Complete Time: 16:39 [facility] 01/11 16:09 Order name: IV Saline Lock; Complete Time: 16:39 8 01/11 16:09 Order name: Labs collected and sent; Complete Time: 16:39 8 01/11 16:09 Order name: O2 Per Protocol; Complete Time: 16:12 8 01/11 16:09 Order name: O2 Sat Monitoring; Complete Time: 16:12 8 Administered Medications: 16:38 Drug: hydrALAZINE 10 mg Route: IV; Rate: calculated rate; Site: right antecubital; vg1 17:29 Follow up: Response: No adverse reaction; Blood pressure is lowered; IV Status: vg1 Completed infusion 18:33 Drug: amLODIPine 10 mg Route: PO; vg1 18:34 Follow up: Response: Medication administered at discharge. vg1 Disposition: 01/12 06:21 Co-signature as Attending Physician, Timi Trujillo MD I agree with the assessment and kdr plan of care. Disposition: 01/11/21 18:18 Discharged to Home. Impression: Hypertensive Urgency . - Condition is Stable. - Discharge Instructions: Hypertension. - Prescriptions for amlodipine 10 mg Oral tablet - take 1 tablet by ORAL route once daily; 30 tablet. Metoprolol Tartrate 50 mg Oral Tablet - take 1 tablet by ORAL route 2 times per day take with meal; 60 tablet. - Medication Reconciliation Form, Thank You Letter, Antibiotic Education, Prescription Opioid Use form. - Follow up: Private Physician; When: 2 - 3 days; Reason: Recheck today's complaints, Continuance of care, Re-evaluation by your physician. - Problem is new. - Symptoms have improved. Signatures: Dispatcher [employer] EDTimi Mary MD MD [facility] Chin Sullivan RN RN Miguel Horton PA PA jr8 Kari Bennett RN RN vg1 Corrections: (The following items were deleted from the chart) 01/11 18:42 18:18 01/11/2021 18:18 Discharged to Home. Impression: Hypertensive Urgency . Condition vg1 is Stable. Forms are Medication Reconciliation Form, Thank You Letter, Antibiotic Education, Prescription Opioid Use. Follow up: Private Physician; When: 2 - 3 days; Reason: Recheck today's complaints, Continuance of care, Re-evaluation by your physician. Problem is new. Symptoms have improved. jr8
[2021-01-11] MEDS ORDERED: AMLODIPINE 10 MG TAB ONE (18:46)
[2021-01-11 18:54] VITALS: TEMP 98.1
[2021-01-11 18:59] VITALS: BP 188/96; O2SAT 100
== END 2021-01-11 18:42 | disposition home or self-care (01) ==
LOC: ER 15:18
DX: I16.0 Hypertensive urgency (principal); I10 Essential (primary) hypertension; E11.9 Type 2 diabetes mellitus without complications; Z88.5 Allergy status to narcotic agent
CPT/HCPCS: 36415; 71045; 80048; 80076; 83735; 83880; 84484; 85025; 85610; 93005; 96365; 99284; J0360

== ENCOUNTER 2021-11-06 10:24 | Emergency (ER) | payer SELFPAY ==
--- OUTSIDE RECORDS SUMMARY | 2021-11-06 10:26 | XMS REPORT | Continuity of Care Document ---
:1965 Author Organization [facility] t Address [address] [place] [address] Care Team Providers Name Role Phone Unavailable Unavailable Unavailable Problems This patient has no known problems. Allergies, Adverse Reactions, Alerts This patient has no known allergies or adverse reactions. Medications This patient has no known medications. Procedures This patient has no known procedures. Results Test Description Test Time Test Comments Results Result Comments Source HEMOGLOBIN A1c 2021-11-02 08:44:14 Test Item Value Reference Range Interpretation Comme nts HEMOGLOBIN A1c (test code = 11.3 % 4.2-5.6 H [employer] 12006) GUIDELINES FOR HGB A1C: PREDIABETES/INC REASED RISK . . . . . . . 5.7-6.4% DIAGNOSIS OF DIABETES . . . . . . . . . >=6.5% WITH CONF IRMATION OR APPROPRIATE SYMPTOMS N OTE: ASSAY MAY BE AFFECTED BY HEM OGLOBINOPATHIES (SICKLE CELL ANEMIA, S-C DISEASE, OTHERS) OR ARTIFICIALLY LO WERED BY DECREASED RED CELL SURVIV AL (HEMOLYTIC ANEMIAS, BLOOD LOSS, ETC.). CONSIDER ALTERNATE TESTI NG OR LABORATORY CONSULTATION. CBC W/AUTO DIFF WITH [id number] 07:50:18 Test Item Value Reference Range Interpretation Comments WBC (test code = 6.6 K/UL 3.5-11.0 1001) RBC (test code = 4.61 M/UL 3.80-5.40 1002) HEMOGLOBIN (test code 14.4 G/DL 11.5-15.5 = 1003) HEMATOCRIT (test code 40.8 % 34.0-45.0 = 1004) MCV (test code = 88.5 fL 80.0-99.0 1005) MCH (test code = 31.2 PG 25.0-33.0 1006) MCHC (test code = 35.3 G/DL 31.0-36.0 1007) RDW (test code = 11.9 % 11.5-15.0 1038) NEUTROPHILS (test 63.6 % code = 1008) LYMPHOCYTES (test 28.6 % code = 1010) MONOCYTES (test code 6.2 % = 1011) EOSINOPHILS (test 0.8 % code = 1012) BASOPHILS (test code 0.5 % = 1013) IMMATURE GRANULOCYTES 0.3 % (test code = 1036) NUCLEATED RBCS (test 0.0 /100 See_Comment [Autom ated code = 1065) WBC'S message] The sy stem which generated this result transmitted reference range : 0.0. The refere nce range was not u sed to interpret th is result as normal/abnormal . PLATELET COUNT (test 236 K/UL 130-400 code = 1015) ABSOLUTE NEUTROPHILS 4.19 K/UL 1.50-7.50 (test code = 1066) ABSOLUTE LYMPHOCYTES 1.88 K/UL 1.00-4.00 (test code = 1067) ABSOLUTE MONOCYTES 0.41 K/UL 0.20-1.00 (test code = 1068) ABSOLUTE EOSINOPHILS 0.05 K/UL 0.00-0.50 (test code = 1040) ABSOLUTE BASOPHILS 0.03 K/UL 0.00-0.20 (test code = 1069) ABS IMMATURE 0.02 K/UL 0.00-0.10 GRANULOCYTES (test code = 1020) ABS NUCLEATED RBCS 0.00 K/UL 0.00-0.11 (test code = 49215) LIPID [id number] 05:17:12 Test Item Value Reference Range Interpretation Comments CHOLESTEROL (test 243 MG/DL <200 H code = 2210) TRIGLYCERIDES (test 146 MG/DL <150 code = 2232) HDL CHOLESTEROL (test 67 MG/DL >39 code = 2220) CALC LDL CHOL (test 148 MG/DL <100 H NOTE: C ALCULATED LDL code = 2237) IS BASED ON RON-DELGADO METHOD WHICHINCLUDES ADJUSTABLE TRIGLYCERIDE:VL DL CHOLESTEROL RAT IO.THIS FACTOR VARIES B Y MEASURED TRIGLY CERIDE AND NON-HDLCHOL ESTEROL CONCENTRATIONS WITH INCREASED CALCU LATED LDL SEENIN HIGH ER TRIGLYCERIDE OR LOWER NON-HDL SPECIME NS. FOR MOREINFORMATION , SEE CLIENT ANNOUNCE MENT AT [email or web address] RISK RATIO LDL/HDL 2.21 RATIO <3.22 (test code = 2238) COMPREHENSIVE METABOLIC [id number] 05:17:12 Test Item Value Reference Range Interpretation Comments GLUCOSE (test code = 217 MG/DL 70-99 H 2216) BUN (test code = 9 MG/DL 6-20 2207) CREATININE (test 0.50 MG/DL 0.60-1.30 L code = 2214) eGFR (2020 CKD-EPI) 110 >60 (test code = 86094) ML/MIN/1.73 CALC BUN/CREAT (test 18 RATIO 6-28 code = 2235) SODIUM (test code = 137 MEQ/L [phone]) POTASSIUM (test code 4.1 MEQ/L 3.5-5.4 = 2227) CHLORIDE (test code 100 MEQ/L 95-107 = 2214) CARBON DIOXIDE (test 25 MEQ/L 19-31 code = 220) CALCIUM (test code = 10.1 MG/DL 8.5-10.5 2208) PROTEIN, TOTAL (test 7.3 G/DL 6.1-8.3 code = 222) ALBUMIN (test code = 4.8 G/DL 3.5-5.2 2200) CALC GLOBULIN (test 2.5 G/DL 1.9-3.7 code = 2240) CALC A/G RATIO (test 1.9 RATIO 1.0-2.6 code = 2234) BILIRUBIN, TOTAL 0.5 MG/DL See_Comment [Automated message] (test code = 2207) The syste [employer] which generated this result transmitted ref erence range: <=1.2. T he reference range was not used to int erpret this result as normal/abnormal . ALKALINE PHOSPHATASE 164 U/L 40-136 H (test code = 2204) AST (test code = 15 U/L 9-40 2217) ALT (test code = 23 U/L 5-40 UNLE SS 2218) OTHERWISE INDIC ATED, ALL TESTING PER [facility], [place]. [address] [place] [address] LABORATORY DIRE CTOR: ANA HURTADO M.D. CLIA NUMBER [id number] CAP ACCREDITATION N O. [id number]
[2021-11-06] MEDS ORDERED: NA CHLORIDE 0.9% 1,000 ML ONE (11:26)
[2021-11-06 11:30] LABS: Absolute Lymphocytes (CBC) 1.4 K/uL (0.7-4.9); Hematocrit 44.1 % (36.0-45.0); Lymphocytes % 22.8 % (15.3-44.8); MPV 8.3 fL (7.6-11.3); RBC Red Blood Cell Count 4.94 M/uL (3.86-4.86)
[2021-11-06 11:41] LABS: Urine Bacteria <20 /HPF (<20); Urine RBC <5 /HPF (NONE SEEN)
[2021-11-06 11:44] LABS: Albumin 4.1 g/dL (3.4-5.0); Bilirubin Direct 0.1 mg/dL (0-0.2); Bilirubin Total 0.6 mg/dL (0.2-1.0); Protein, Total 8.4 g/dL (6.4-8.2)
--- NOTE | 2021-11-06 12:36 | RAD REPORT ---
EXAM DESCRIPTION: CT - Abdomen Pelvis W Contrast - 11/06/2021 12:07 pm CLINICAL HISTORY: ABD PAIN COMPARISON: No comparisons TECHNIQUE: Biphasic, helical CT imaging of the abdomen and pelvis was performed following 100 ml non -ionic IV contrast. No oral contrast administered. All CT scans are performed using dose optimization technique as appropriate and may include automated exposure control or mA/KV adjustment according to patient size. FINDINGS: No suspicious findings in the lung bases. The liver, spleen, and pancreas show no suspicious findings. Gallbladder and biliary tree are also wi thout suspicious finding. Symmetric renal function is seen with no hydronephrosis or suspicious renal mass. No pyelonephritis o r acute parenchymal process. No bladder abnormalities. No adrenal abnormalities. Uterus and ovaries s how no suspicious findings. No dilated bowel loops or bowel wall thickening. No appendicitis findings. No active GI process seen. Rare diverticula seen in the sigmoid colon. No free air, free fluid or inflammatory stranding. No h ernia, mass or bulky lymphadenopathy. No suspicious bony findings. IMPRESSION: Contrast enhanced CT abdomen and pelvis showing no significant or suspicious finding.
--- NOTE | 2021-11-06 12:38 | ER ---
Nurse's Notes [facility] Name: Yolanda Lowe Age: 56 yrs Sex: Female : 1965 Arrival Date: 11/06/2021 Time: 10:26 Bed 9 Private MD: Diagnosis: Lower abdominal pain, unspecified Presentation: 11/06 10:32 Chief complaint: Patient states: R sided lower abdominal pain that radiates to groin x ph 2 weeks, also reports some constipation, denies N/V or fever. Coronavirus screen: Vaccine status: Patient reports receiving the 2nd dose of the covid vaccine. Ebola Screen: No symptoms or risks identified at this time. Initial Sepsis Screen: Does the patient meet any 2 criteria? No. Patient's initial sepsis screen is negative. Does the patient have a suspected source of infection? No. Patient's initial sepsis screen is negative. Risk Assessment: Do you want to hurt yourself or someone else? Patient reports no desire to harm self or others. Onset of symptoms was November 06, 2021. 10:32 Method Of Arrival: Ambulatory ph 10:32 Acuity: MARGI 3 ph Historical: - Allergies: 10:34 Hydrocodone-Acetaminophen; ph - PMHx: 10:34 Diabetes - NIDDM; Hypertension; ph - Immunization history:: Adult Immunizations unknown. - Social history:: Smoking status: Patient denies any tobacco usage or history of. Screenin:45 Abuse screen: Denies threats or abuse. Nutritional screening: No deficits noted. ke1 Tuberculosis screening: No symptoms or risk factors identified. Fall Risk None identified. Assessment: 11:15 General: Appears in no apparent distress. Behavior is calm, cooperative. Pain: ke1 Complains of pain in right lower quadrant Pain currently is 5 out of 10 on a pain scale. Neuro: Level of Consciousness is awake, alert, Oriented to person, place, time, situation, Cardiovascular: Capillary refill < 3 seconds. Respiratory: Airway is patent Breath sounds are clear bilaterally. GI: Bowel sounds present X 4 quads. Abd is soft X 4 quads Abdomen is tender to palpation in right lower quadrant. Vital Signs: 10:32 BP 178 / 95; Pulse 75; Resp 18; Temp 97.8; Pulse Ox 98% on R/A; Weight 74.84 kg; Height ph 5 ft. 1 in. (154.94 cm); 10:32 Body Mass Index 31.18 (74.84 kg, 154.94 cm) ph ED Course: 10:26 Patient arrived in ED. ds1 10:34 Triage completed. ph 10:34 Arm band placed on Patient placed in an exam room. ph 10:40 Lindsay Almaraz [facility]-C [facility] kb 10:40 Efrem Buitrago MD is Attending Physician. kb 11:00 Yelena Dejesus, RN is Primary Nurse. iw 11:15 Inserted saline lock: 20 gauge in right antecubital area, using aseptic technique. ke1 12:07 CT Abd/Pelvis - IV Contrast Only In Process Unspecified. EDMS 13:05 No provider procedures requiring assistance completed. ke1 13:06 Patient has correct armband on for positive identification. Bed in low position. ke1 13:07 IV discontinued. ke1 Administered Medications: 11:31 Drug: NS 0.9% 1000 ml Route: IV; Rate: 1000 ml; Site: right antecubital; iw 13:04 Follow up: IV Status: Completed infusion ke1 Outcome: 12:37 Discharge ordered by . kb 13:07 Discharged to home ke1 13:07 Condition: good 13:07 Discharge instructions given to patient. 13:07 Patient left the ED. ke1 Signatures: Dispatcher [employer] EDNM Lindsay Almaraz FNP-C FNP-Ckb Sanford, Demi ds1 Yelena Dejesus, RN ESDRAS Leslie Burnham RN RN ph Ebrottie, Kouassi, RN RN ke1
--- NOTE | 2021-11-06 12:38 | EDPHYS ---
Physician Documentation [facility] Name: Yolanda Lowe Age: 56 yrs Sex: Female : 1965 Arrival Date: 11/06/2021 Time: 10:26 Bed 9 Private MD: ED Physician Efrem Buitrago HPI: 11/06 11:16 This 56 yrs old Female presents to ER via Ambulatory with complaints of kb Abdominal Pain. 11:16 The patient presents with abdominal pain right lower quadrant. Onset: The kb symptoms/episode began/occurred 3 week(s) ago. The symptoms do not radiate. Associated signs and symptoms: none. The symptoms are described as constant. Modifying factors: The symptoms are alleviated by nothing, the symptoms are aggravated by nothing. Severity of pain: At its worst the pain was moderate in the emergency department the pain is unchanged. The patient has not experienced similar symptoms in the past. The patient has not recently seen a physician. Historical: - Allergies: 10:34 Hydrocodone-Acetaminophen; ph - PMHx: 10:34 Diabetes - NIDDM; Hypertension; ph - Immunization history:: Adult Immunizations unknown. - Social history:: Smoking status: Patient denies any tobacco usage or history of. ROS: 11:15 Constitutional: Negative for fever, chills, and weight loss. kb 11:15 Abdomen/GI: Positive for abdominal pain, constipation, Negative for nausea, vomiting, and diarrhea. 11:15 All other systems are negative. Exam: 11:15 Constitutional: This is a well developed, well nourished patient who is awake, alert, kb and in no acute distress. Head/Face: Normocephalic, atraumatic. ENT: Moist Mucous membranes Cardiovascular: Regular rate and rhythm with a normal S1 and S2. No gallops, murmurs, or rubs. No pulse deficits. Respiratory: Respirations even and unlabored. No increased work of breathing. Talking in full sentences Skin: Warm, dry with normal turgor. Normal color. MS/ Extremity: Pulses equal, no cyanosis. Neurovascular intact. Full, normal range of motion. Neuro: Awake and alert, GCS 15, oriented to person, place, time, and situation. Moves all extremities. Normal gait. Psych: Awake, alert, with orientation to person, place and time. Behavior, mood, and affect are within normal limits. 11:15 Abdomen/GI: Inspection: abdomen appears normal, Bowel sounds: normal, in all quadrants, Palpation: soft, in all quadrants, moderate abdominal tenderness, in the right upper quadrant and right lower quadrant. Vital Signs: 10:32 BP 178 / 95; Pulse 75; Resp 18; Temp 97.8; Pulse Ox 98% on R/A; Weight 74.84 kg; Height ph 5 ft. 1 in. (154.94 cm); 10:32 Body Mass Index 31.18 (74.84 kg, 154.94 cm) ph MDM: 10:57 Patient medically screened. kb 11:16 Data reviewed: vital signs, nurses notes. Data interpreted: Pulse oximetry: on room air kb is 98 %. Interpretation: normal. 12:37 Counseling: I had a detailed discussion with the patient and/or guardian regarding: the kb historical points, exam findings, and any diagnostic results supporting the discharge/admit diagnosis, lab results, radiology results, the need for outpatient follow up, a family practitioner, to return to the emergency department if symptoms worsen or persist or if there are any questions or concerns that arise at home. 11/06 10:57 Order name: Basic Metabolic Panel; Complete Time: 11:45 kb 11/06 10:57 Order name: CBC with Diff; Complete Time: 11:31 kb 11/06 10:57 Order name: Hepatic Function; Complete Time: 11:45 kb 11/06 10:57 Order name: Lipase; Complete Time: 11:45 kb 11/06 10:57 Order name: Urine Microscopic Only; Complete Time: 11:42 kb 11/06 10:59 Order name: CT Abd/Pelvis - IV Contrast Only; Complete Time: 12:37 kb 11/06 10:57 Order name: IV Saline Lock; Complete Time: 12:30 kb 11/06 10:57 Order name: Labs collected and sent; Complete Time: 12:30 kb 11/06 10:57 Order name: Urine Dipstick-Ancillary (obtain specimen); Complete Time: 11:31 kb Administered Medications: 11:31 Drug: NS 0.9% 1000 ml Route: IV; Rate: 1000 ml; Site: right antecubital; iw 13:04 Follow up: IV Status: Completed infusion ke1 Disposition Summary: 11/06/21 12:37 Discharge Ordered Location: Home kb Condition: Stable kb Diagnosis - Lower abdominal pain, unspecified kb Followup: kb - With: Emergency Department - When: As needed - Reason: Worsening of condition Followup: kb - With: Private Physician - When: 2 - 3 days - Reason: Recheck today's complaints, Continuance of care, Re-evaluation by your physician Discharge Instructions: - Discharge Summary Sheet kb - Abdominal Pain, Adult, [id number] kb Forms: - Medication Reconciliation Form kb - Thank You Letter kb - Antibiotic Education kb - Prescription Opioid Use kb Prescriptions: - Diclofenac Sodium 75 mg Oral tablet,delayed release (DR/EC) - take 1 tablet by ORAL route 2 times per day As needed; 30 tablet; Refills: 0, kb Product Selection Permitted Signatures: Dispatcher [employer] EDMS Lindsay Almaraz, TRADER-C TRADER-Yelena Carrizales, RN Leslie Flores RN RN Trina Flores RN RN [email or web address]
[2021-11-06 13:25] VITALS: BP 178/95; TEMP 97.8; O2SAT 98
== END 2021-11-06 13:07 | disposition home or self-care (01) ==
LOC: ER 10:24
DX: R10.31 Right lower quadrant pain (principal); I10 Essential (primary) hypertension; Z88.5 Allergy status to narcotic agent
CPT/HCPCS: 36415; 74177; 80048; 80076; 81015; 83690; 85025; 96360; 96361; 99283; J7030; Q9967

== ENCOUNTER 2023-06-26 14:09 | Emergency (ER) | payer SELFPAY ==
--- OUTSIDE RECORDS SUMMARY | 2023-06-26 14:21 | XMS REPORT | Continuity of Care Document ---
:1965 Author Organization [facility] t Address [address] [facility] [address] [place] [address] Care Team Providers Name Role Phone Tami Nelson Primary Care Physician [phone] Problems This patient has no known problems. Allergies, Adverse Reactions, Alerts Allergy Allergy Status Severity Reaction(s) Onset Inactive Treating Comm ents Source Name Type Date Date Clinician Hydrocod Propensi Active one and ty to 1-05 Benzhydr adverse 00:00: ocodone reaction 00 - CLASS to drug Codeine Propensi Active ty to 2-21 adverse 00:00: reaction 00 to drug Medications Ordered Filled Start Stop Current Ordering Indication Dosage Frequency Signature Comments Components Source Medication Medication Date Date Medication? Clinician (SIG) Name Name Dose 2021-0 No Unknown 8-10 00:00: 00 Dose 2-0 No Unknown 8-10 00:00: 00 TAKE 1 2022-0 No 10 TABLET 8-10 DAILY. 00:00: 00 Dose 2-0 No Unknown 8-10 00:00: 00 TAKE ONE 2022-0 No 500 TABLET 8-09 TWICE A DAY 00:00: 00 TAKE 1 2022-0 No 5 TABLET 8-09 DAILY. 00:00: 00 TAKE ONE 2022-0 No 500 TABLET 8-09 TWICE A DAY 00:00: 00 TAKE 1 2022-0 No 5 TABLET 8-09 DAILY. 00:00: 00 TAKE ONE 2022-0 No 500 TABLET 8-09 TWICE A DAY 00:00: 00 TAKE 1 2022-0 No 5 TABLET 8-09 DAILY. 00:00: 00 TAKE ONE 2022-0 No 500 TABLET 8-09 TWICE A DAY 00:00: 00 TAKE 1 2022-0 No 5 TABLET 8-09 DAILY. 00:00: 00 amlodipine 2022-0 No 1mg 10 mg 2-21 tablet 00:00: 00 metoprolol 2022-0 No 1mg tartrate 50 2-21 mg tablet 00:00: 00 amlodipine 2022-0 No 1mg 10 mg 2-21 tablet 00:00: 00 metoprolol 2022-0 No 1mg tartrate 50 2-21 mg tablet 00:00: 00 amlodipine 2022-0 No 1mg 10 mg 2-21 tablet 00:00: 00 metoprolol 2022-0 No 1mg tartrate 50 2-21 mg tablet 00:00: 00 amlodipine 2022-0 No 1mg 10 mg 2-21 tablet 00:00: 00 metoprolol 2022-0 No 1mg tartrate 50 2-21 mg tablet 00:00: 00 amlodipine 2022-0 No 1mg 10 mg 2-16 tablet 00:00: 00 metoprolol 2022-0 No 1mg tartrate 50 2-16 mg tablet 00:00: 00 amlodipine 2022-0 No 1mg 10 mg 2-16 tablet 00:00: 00 metoprolol 2022-0 No 1mg tartrate 50 2-16 mg tablet 00:00: 00 amlodipine 2022-0 No 1mg 10 mg 2-16 tablet 00:00: 00 metoprolol 2022-0 No 1mg tartrate 50 2-16 mg tablet 00:00: 00 amlodipine 2022-0 No 1mg 10 mg 2-16 tablet 00:00: 00 metoprolol 2022-0 No 1mg tartrate 50 2-16 mg tablet 00:00: 00 pravastatin 2021-0 No 1mg 40 mg 8-09 tablet 00:00: 00 pravastatin 2021-0 No 1mg 40 mg 8-09 tablet 00:00: 00 pravastatin 2021-0 No 1mg 40 mg 8-09 tablet 00:00: 00 pravastatin 2021-0 No 1mg 40 mg 8-09 tablet 00:00: 00 glipizide 2021-0 No 1mg ER 2.5 mg 8-06 tablet, 00:00: extended 00 release 24 hr glipizide 2021-0 No 1mg ER 2.5 mg 8-06 tablet, 00:00: extended 00 release 24 hr glipizide 2021-0 No 1mg ER 2.5 mg 8-06 tablet, 00:00: extended 00 release 24 hr glipizide 1-0 No 1mg ER 2.5 mg 8-06 tablet, 00:00: extended 00 release 24 hr amlodipine 1-0 No 1mg 10 mg 8-05 tablet 00:00: 00 metoprolol 1-0 No 1mg tartrate 50 8-05 mg tablet 00:00: 00 amlodipine 1-0 No 1mg 10 mg 8-05 tablet 00:00: 00 metoprolol 1-0 No 1mg tartrate 50 8-05 mg tablet 00:00: 00 amlodipine 1-0 No 1mg 10 mg 8-05 tablet 00:00: 00 metoprolol 1-0 No 1mg tartrate 50 8-05 mg tablet 00:00: 00 amlodipine 1-0 No 1mg 10 mg 8-05 tablet 00:00: 00 metoprolol 1-0 No 1mg tartrate 50 8-05 mg tablet 00:00: 00 amlodipine 2019-1 No 1mg 10 mg 1-12 tablet 00:00: 00 Dose 2020-1 No Unknown 1-12 00:00: 00 metoprolol 2019-1 No 1mg tartrate 50 1-12 mg tablet 00:00: 00 amlodipine 2019-1 No 1mg 10 mg 1-12 tablet 00:00: 00 metformin 2019-1 No 1mg 500 mg 1-12 tablet 00:00: 00 metoprolol 2019-1 No 1mg tartrate 50 1-12 mg tablet 00:00: 00 amlodipine 2019-1 No 1mg 10 mg 1-12 tablet 00:00: 00 Dose 2020-1 No Unknown 1-12 00:00: 00 metoprolol 2019-1 No 1mg tartrate 50 1-12 mg tablet 00:00: 00 amlodipine 2019-1 No 1mg 10 mg 1-12 tablet 00:00: 00 Dose 2020-1 No Unknown 1-12 00:00: 00 metoprolol 2020-1 No 1mg tartrate 50 1-12 mg tablet 00:00: 00 prednisone 2019-1 No 1mg 5 mg tablet 1-19 00:00: 00 prednisone 2019-1 No 1mg 5 mg tablet 1-19 00:00: 00 Dose 2019-1 No Unknown 1-19 00:00: 00 metoprolol 2018-1 No 1mg tartrate 50 1-19 mg tablet 00:00: 00 amlodipine 2019-1 No 1mg 5 mg tablet 10-04 00:00: 00 amoxicillin 2019-1 No 10mg/5 400 1-19 mL mg-potassiu 00:00: m 00 clavulanate 57 mg/5 mL oral suspension metformin 2019-1 No 1mg 500 mg -19 tablet 00:00: 00 metoprolol 2019-1 No 1mg tartrate 50 1-19 mg tablet 00:00: 00 amlodipine 2019-1 No 1mg 5 mg tablet 10-04 00:00: 00 amoxicillin 2019-1 No 10mg/5 400 1-19 mL mg-potassiu 00:00: m 00 clavulanate 57 mg/5 mL oral suspension prednisone 2018-1 No 1mg 5 mg tablet 10-04 00:00: 00 Dose 2019-1 No Unknown 19 00:00: 00 metoprolol 2019-1 No 1mg tartrate 50 1-19 mg tablet 00:00: 00 amlodipine 2019-1 No 1mg 5 mg tablet 10-04 00:00: 00 amoxicillin 2019-1 No 10mg/5 400 1-19 mL mg-potassiu 00:00: m 00 clavulanate 57 mg/5 mL oral suspension prednisone 2018-1 No 1mg 5 mg tablet 10-04 00:00: 00 Dose 2019-1 No Unknown 10-04 00:00: 00 metoprolol 2019-1 No 1mg tartrate 50 1-19 mg tablet 00:00: 00 amlodipine 2019-1 No 1mg 5 mg tablet 10-04 00:00: 00 amoxicillin 2019-1 No 10mg/5 400 1-19 mL mg-potassiu 00:00: m 00 clavulanate 57 mg/5 mL oral suspension metoprolol 2019-0 No 1mg tartrate 50 5-30 mg tablet 00:00: 00 metformin 2019-0 No 1mg 500 mg 5-30 tablet 00:00: 00 metoprolol 2019-0 No 1mg tartrate 50 5-30 mg tablet 00:00: 00 metformin 2019-0 No 1mg 500 mg 5-30 tablet 00:00: 00 metoprolol 2019-0 No 1mg tartrate 50 5-30 mg tablet 00:00: 00 metformin 2019-0 No 1mg 500 mg 5-30 tablet 00:00: 00 metoprolol 2019-0 No 1mg tartrate 50 5-30 mg tablet 00:00: 00 metformin 2019-0 No 1mg 500 mg 5-30 tablet 00:00: 00 hydrochloro 2019-0 No 1mg thiazide 5-23 12.5 mg 00:00: tablet 00 meclizine 2019-0 No 1mg 25 mg 5-23 tablet 00:00: 00 hydrochloro 2019-0 No 1mg thiazide 5-23 12.5 mg 00:00: tablet 00 meclizine 2019-0 No 1mg 25 mg 5-23 tablet 00:00: 00 hydrochloro 2019-0 No 1mg thiazide 5-23 12.5 mg 00:00: tablet 00 meclizine 2019-0 No 1mg 25 mg 5-23 tablet 00:00: 00 hydrochloro 2019-0 No 1mg thiazide 5-23 12.5 mg 00:00: tablet 00 meclizine 2019-0 No 1mg 25 mg 5-23 tablet 00:00: 00 amlodipine 2019-0 No 1mg 5 mg tablet 4-18 00:00: 00 amlodipine 2019-0 No 1mg 5 mg tablet 4-18 00:00: 00 amlodipine 2019-0 No 1mg 5 mg tablet 4-18 00:00: 00 amlodipine 2019-0 No 1mg 5 mg tablet 4-18 00:00: 00 amoxicillin 2019-0 No 1mg 500 mg 4-11 capsule 00:00: 00 amoxicillin 2019-0 No 1mg 500 mg 4-11 capsule 00:00: 00 amoxicillin 2019-0 No 1mg 500 mg 4-11 capsule 00:00: 00 amoxicillin 2019-0 No 1mg 500 mg 4-11 capsule 00:00: 00 metformin 2016-0 No 1mg 500 mg 4-27 tablet 00:00: 00 metformin 2016-0 No 1mg 500 mg 4-27 tablet 00:00: 00 metformin 2016-0 No 1mg 500 mg 4-27 tablet 00:00: 00 metformin 2016-0 No 1mg 500 mg 4-27 tablet 00:00: 00 lovastatin 2016-0 No 1mg 20 mg 4-23 tablet 00:00: 00 lovastatin 2016-0 No 1mg 20 mg 4-23 tablet 00:00: 00 lovastatin 2016-0 No 1mg 20 mg 4-23 tablet 00:00: 00 lovastatin 2016-0 No 1mg 20 mg 4-23 tablet 00:00: 00 hydralazine 2016-0 No 1mg 25 mg 4-18 tablet 00:00: 00 metoprolol 2016-0 No 1mg tartrate 50 4-18 mg tablet 00:00: 00 hydralazine 2016-0 No 1mg 25 mg 4-18 tablet 00:00: 00 metoprolol 2016-0 No 1mg tartrate 50 4-18 mg tablet 00:00: 00 hydralazine 2016-0 No 1mg 25 mg 4-18 tablet 00:00: 00 metoprolol 2016-0 No 1mg tartrate 50 4-18 mg tablet 00:00: 00 hydralazine 2015-0 No 1mg 25 mg 4-18 tablet 00:00: 00 metoprolol 2016-0 No 1mg tartrate 50 4-18 mg tablet 00:00: 00 hydralazine 2014-1 No 1mg 50 mg 2-15 tablet 00:00: 00 hydralazine 2014-1 No 1mg 50 mg 2-15 tablet 00:00: 00 hydralazine 2014-1 No 1mg 50 mg 2-15 tablet 00:00: 00 hydralazine 2014-1 No 1mg 50 mg 2-15 tablet 00:00: 00 hydralazine 2014-0 No 1mg 25 mg 6-30 tablet 00:00: 00 metoprolol 2015-0 No 1mg tartrate 50 6-30 mg tablet 00:00: 00 hydralazine 2015-0 No 1mg 25 mg 6-30 tablet 00:00: 00 metoprolol 2015-0 No 1mg tartrate 50 6-30 mg tablet 00:00: 00 hydralazine 2015-0 No 1mg 25 mg 6-30 tablet 00:00: 00 metoprolol 2015-0 No 1mg tartrate 50 6-30 mg tablet 00:00: 00 hydralazine 2015-0 No 1mg 25 mg 6-30 tablet 00:00: 00 metoprolol 2015-0 No 1mg tartrate 50 6-30 mg tablet 00:00: 00 lisinopril 2015-0 No 1mg 20 mg 6-25 tablet 00:00: 00 lisinopril 2015-0 No 1mg 20 mg 6-25 tablet 00:00: 00 lisinopril 2015-0 No 1mg 20 mg 6-25 tablet 00:00: 00 lisinopril 2015-0 No 1mg 20 mg 6-25 tablet 00:00: 00 enalapril 2015-0 No 1mg maleate 20 5-27 mg tablet 00:00: 00 hydralazine 2015-0 No 1mg 25 mg 5-27 tablet 00:00: 00 enalapril 2015-0 No 1mg maleate 20 5-27 mg tablet 00:00: 00 hydralazine 2015-0 No 1mg 25 mg 5-27 tablet 00:00: 00 enalapril 2015-0 No 1mg maleate 20 5-27 mg tablet 00:00: 00 enalapril 2015-0 No 1mg maleate 20 5-27 mg tablet 00:00: 00 hydralazine 2015-0 No 1mg 25 mg 5-27 tablet 00:00: 00 hydralazine 2015-0 No 1mg 25 mg 5-27 tablet 00:00: 00 Vital Signs Vital Name Observation Time Observation Value Comments Source BP Systolic 2022-09-20 13:42:00 172 mm[Hg] BP Diastolic 2022-09-20 13:42:00 101 mm[Hg] Weight Measured 2022-09-20 13:42:00 163.00 pounds Height Measured 2022-09-20 13:42:00 61.00 inches Body Temperature 2022-09-20 13:42:00 98.10 degrees Heart Rate 2022-09-20 13:42:00 88.00 /min Respiratory Rate 2022-09-20 13:42:00 BP Systolic 2022-09-20 13:23:00 172 mm[Hg] BP Diastolic 2022-09-20 13:23:00 101 mm[Hg] Weight Measured 2022-09-20 13:23:00 163.00 pounds Height Measured 2022-09-20 13:23:00 61.00 inches Body Temperature 2022-09-20 13:23:00 98.10 degrees Heart Rate 2022-09-20 13:23:00 88.00 /min Respiratory Rate 2022-09-20 13:23:00 BP Systolic 2022-08-20 14:44:00 151 mm[Hg] BP Diastolic 2022-08-20 14:44:00 93 mm[Hg] Weight Measured 2022-08-20 14:44:00 157.60 pounds Height Measured 2022-08-20 14:44:00 61.00 inches Body Temperature 2022-08-20 14:44:00 97.80 degrees Heart Rate 2022-08-20 14:44:00 83.00 /min Respiratory Rate 2022-08-20 14:44:00 24.00 /min BP Systolic 2022-06-11 13:43:00 173 mm[Hg] BP Diastolic 2022-06-11 13:43:00 106 mm[Hg] Weight Measured 2022-06-11 13:43:00 164.80 pounds Height Measured 2022-06-11 13:43:00 61.00 inches Body Temperature 2022-06-11 13:43:00 98.20 degrees Heart Rate 2022-06-11 13:43:00 91.00 /min Respiratory Rate 2022-06-11 13:43:00 BP Systolic 2022-06-11 13:28:00 173 mm[Hg] BP Diastolic 2022-06-11 13:28:00 106 mm[Hg] Weight Measured 2022-06-11 13:28:00 164.80 pounds Height Measured 2022-06-11 13:28:00 61.00 inches Body Temperature 2022-06-11 13:28:00 98.20 degrees Heart Rate 2022-06-11 13:28:00 91.00 /min Respiratory Rate 2022-06-11 13:28:00 Heart Rate 2022-04-24 13:20:00 76.00 /min Respiratory Rate 2022-04-24 13:20:00 BP Systolic 2022-04-24 13:20:00 167 mm[Hg] BP Diastolic 2022-04-24 13:20:00 99 mm[Hg] Weight Measured 2022-04-24 13:20:00 161.00 pounds Height Measured 2022-04-24 13:20:00 61.00 inches Body Temperature 2022-04-24 13:20:00 97.80 degrees BP Systolic 2021-11-01 14:46:00 177 mm[Hg] BP Diastolic 2021-11-01 14:46:00 101 mm[Hg] Weight Measured 2021-11-01 14:46:00 163.80 pounds Height Measured 2021-11-01 14:46:00 61.00 inches Body Temperature 2021-11-01 14:46:00 97.60 degrees Heart Rate 2021-11-01 14:46:00 94.00 /min Respiratory Rate 2021-11-01 14:46:00 BP Systolic 2021-04-20 11:43:00 182 mm[Hg] BP Diastolic 2021-04-20 11:43:00 100 mm[Hg] Weight Measured 2021-04-20 11:43:00 164.60 pounds Height Measured 2021-04-20 11:43:00 61.00 inches Body Temperature 2021-04-20 11:43:00 97.50 degrees Heart Rate 2021-04-20 11:43:00 79.00 /min Respiratory Rate 2021-04-20 11:43:00 17.00 /min BP Systolic 2021-01-11 14:35:00 227 mm[Hg] BP Diastolic 2021-01-11 14:35:00 117 mm[Hg] Weight Measured 2021-01-11 14:35:00 169.80 pounds Height Measured 2021-01-11 14:35:00 61.00 inches Body Temperature 2021-01-11 14:35:00 98.00 degrees Heart Rate 2021-01-11 14:35:00 83.00 /min Respiratory Rate 2021-01-11 14:35:00 18.00 /min BP Systolic 2020-07-28 14:54:00 213 mm[Hg] BP Diastolic 2020-07-28 14:54:00 108 mm[Hg] Weight Measured 2020-07-28 14:54:00 166.40 pounds Height Measured 2020-07-28 14:54:00 61.00 inches Body Temperature 2020-07-28 14:54:00 97.70 degrees Heart Rate 2020-07-28 14:54:00 71.00 /min Respiratory Rate 2020-07-28 14:54:00 16.00 /min BP Systolic 2020-07-28 14:42:00 213 mm[Hg] BP Diastolic 2020-07-28 14:42:00 108 mm[Hg] Weight Measured 2020-07-28 14:42:00 166.40 pounds Height Measured 2020-07-28 14:42:00 61.00 inches Body Temperature 2020-07-28 14:42:00 97.70 degrees Heart Rate 2020-07-28 14:42:00 71.00 /min Respiratory Rate 2020-07-28 14:42:00 16.00 /min BP Systolic 2020-07-28 13:42:00 213 mm[Hg] BP Diastolic 2020-07-28 13:42:00 108 mm[Hg] Weight Measured 2020-07-28 13:42:00 166.40 pounds Height Measured 2020-07-28 13:42:00 61.00 inches Body Temperature 2020-07-28 13:42:00 97.70 degrees Heart Rate 2020-07-28 13:42:00 71.00 /min Respiratory Rate 2020-07-28 13:42:00 16.00 /min BP Systolic 2019-08-04 14:48:00 BP Diastolic 2019-08-04 14:48:00 Weight Measured 2019-08-04 14:48:00 Height Measured 2019-08-04 14:48:00 Body Temperature 2019-08-04 14:48:00 Heart Rate 2019-08-04 14:48:00 Respiratory Rate 2019-08-04 14:48:00 BP Systolic 2019-08-04 14:38:00 210 mm[Hg] BP Diastolic 2019-08-04 14:38:00 114 mm[Hg] Weight Measured 2019-08-04 14:38:00 168.80 pounds Height Measured 2019-08-04 14:38:00 61.00 inches Body Temperature 2019-08-04 14:38:00 98.90 degrees Heart Rate 2019-08-04 14:38:00 98.00 /min Respiratory Rate 2019-08-04 14:38:00 16.00 /min BP Systolic 2019-02-12 15:40:00 173 mm[Hg] BP Diastolic 2019-02-12 15:40:00 99 mm[Hg] Weight Measured 2019-02-12 15:40:00 170.80 pounds Height Measured 2019-02-12 15:40:00 61.00 inches Body Temperature 2019-02-12 15:40:00 99.00 degrees Heart Rate 2019-02-12 15:40:00 97.00 /min Respiratory Rate 2019-02-12 15:40:00 16.00 /min Procedures Procedure Date / Time Performed Performing Clinician Sourc e 34991 Ecg Routine Ecg W/least 2015-09-06 00:00:00 Lds W/i r Plan of Care Planned Activity Planned Date Details Comments Source Goal Plan of Care Note [code = 51015-8] Goal Plan of Care Note [code = 30775-3] Goal Plan of Care Note [code = 98273-4] Goal Plan of Care Note [code = 72974-8] Goal Plan of Care Note [code = 07922-1] Goal Plan of Care Note [code = 90475-0] Goal Plan of Care Note [code = 94189-2] Goal Plan of Care Note [code = 05154-5] Goal Plan of Care Note [code = 55530-7] Goal Plan of Care Note [code = 49363-9] Goal Plan of Care Note [code = 55359-2] Goal Plan of Care Note [code = 02334-9] Goal Plan of Care Note [code = 63579-5] Goal Plan of Care Note [code = 38267-6] Goal Plan of Care Note [code = 94181-2] Goal Plan of Care Note [code = 61662-7] Goal Plan of Care Note [code = 90242-8] Goal Plan of Care Note [code = 08384-5] Goal Plan of Care Note [code = 03870-6] Goal Plan of Care Note [code = 25938-8] Goal Plan of Care Note [code = 44382-5] Goal Plan of Care Note [code = 54470-4] Goal Plan of Care Note [code = 03352-8] Goal Plan of Care Note [code = 51845-0] Goal Plan of Care Note [code = 37729-8] Goal Plan of Care Note [code = 22059-0] Goal Plan of Care Note [code = 93586-1] Goal Plan of Care Note [code = 11437-3] Goal Plan of Care Note [code = 85509-8] Goal Plan of Care Note [code = 56828-5] Goal Plan of Care Note [code = 26385-9] Goal Plan of Care Note [code = 96094-6] Goal Plan of Care Note [code = 89452-5] Goal Plan of Care Note [code = 87350-4] Goal Plan of Care Note [code = 33427-2] Goal Plan of Care Note [code = 17305-6] Goal Plan of Care Note [code = 77681-1] Goal Plan of Care Note [code = 00757-6] Goal Plan of Care Note [code = 02609-4] Goal Plan of Care Note [code = 63294-7] Goal Plan of Care Note [code = 31854-4] Goal Plan of Care Note [code = 40812-3] Goal Plan of Care Note [code = 44572-9] Goal Plan of Care Note [code = 32003-8] Goal Plan of Care Note [code = 66993-2] Goal Plan of Care Note [code = 71020-0] Goal Plan of Care Note [code = 32945-9] Goal Plan of Care Note [code = 91774-0] Goal Plan of Care Note [code = 86461-6] Goal Plan of Care Note [code = 89857-5] Goal Plan of Care Note [code = 81276-7] Goal Plan of Care Note [code = 72164-5] Goal Plan of Care Note [code = 67497-1] Goal Plan of Care Note [code = 67233-2] Goal Plan of Care Note [code = 68519-6] Goal Plan of Care Note [code = 67523-1] Goal Plan of Care Note [code = 95262-7] Goal Plan of Care Note [code = 22321-5] Goal Plan of Care Note [code = 56747-2] Goal Plan of Care Note [code = 16437-8] Goal Plan of Care Note [code = 29465-3] Goal Plan of Care Note [code = 57423-6] Goal Plan of Care Note [code = 55783-6] Goal Plan of Care Note [code = 52602-0] Goal Plan of Care Note [code = 57468-0] Goal Plan of Care Note [code = 53820-0] Goal Plan of Care Note [code = 53564-0] Goal Plan of Care Note [code = 49940-5] Goal Plan of Care Note [code = 02963-7] Goal Plan of Care Note [code = 08389-9] Encounters Start End Encounter Admission Attending Care Care Encounter Source Date/Time Date/Time Type Type Clinicians Facility Department ID 2022-09-27 2022-09-27 Outpatient [facility] [id number] Vamshi 14:02:59 14:02:59 0112 [facility] [place] 2022-09-25 2022-09-25 Outpatient [facility] [id number] 023 Vamshi 09:38:00 09:38:00 0110 [facility] [place] 2022-09-21 2022-09-21 Outpatient [facility] [id number] 023 Vamshi 08:24:26 08:24:26 0106 [facility] [place] 2022-09-20 2022-09-20 Outpatient [facility] [id number] 023 Vamshi 13:17:46 13:17:46 0105 [facility] [place] 2022-09-20 2022-09-20 Outpatient [id number] 00:00:00 00:00:00 Visit [id number] 2022-08-20 2022-08-20 Outpatient [facility] SFA [id number] 022 Vamshi 14:43:27 14:43:27 1205 [facility] [place] 2022-08-20 2022-08-20 Outpatient [id number] 00:00:00 00:00:00 Visit [id number] 2022-06-11 2022-06-11 Outpatient [id number] 00:00:00 00:00:00 Visit [id number] 2022-04-24 2022-04-24 Outpatient [id number]- [id number] 00:00:00 00:00:00 Visit [id number] [id number] Results Test Description Test Time Test Comments Results Result Comments Source H. PYLORI (BREATH) 2022-09-22 13:52:06 Test Item Value Reference Range Interpretation Comme nts H. PYLORI (BREATH) (test code POSITIVE NEGATIVE A UNLESS OTHERWISE INDICATED, ALL = 11493) TESTING PERFORM ED ATCLINICAL PATHOLOGY LOCATED WITHIN [facility] [employer]. [address] [place] [address] QUALITY ASSURANCE ENGINEER: ANA DE LOS SANTOS M.D. [place] NUMBER [id number] CAP ACCREDITATION N O. [id number] H. PYLORI (BREATH)2022-09-22 00:00:00 Test Item Value Reference Range Interpretation Comments H. PYLORI (BREATH) (test code = POSITIVE 78006) H. PYLORI (BREATH)2022-09-22 00:00:00 Test Item Value Reference Range Interpretation Comments H. PYLORI (BREATH) (test code = POSITIVE 31195) HEMOGLOBIN [id number] 07:13:15 Test Item Value Reference Range Interpretation Comments HEMOGLOBIN A1c (test 10.3 % 4.2-5.6 H [facility] code = 80213) ASSOCIATION [employer] FOR HGB A1C: PREDIABETES/INC REASED RISK . . . . . . . 5 .7-6.4% DIAGNOSIS OF DI ABETES . . . . . . . . . >=6 .5% WITH CONFIRMATION OR APPROPRIATE SYMPTOMS NOTE: ASSAY MAY BE AFFECTED BY HEMOGLOBINOPATH IES (SICKLE CELL ANEMIA, S- C DISEASE, OTHERS) OR DAJA FICIALLY LOWERED BY DECR EASED RED CELL SURVIVAL ( HEMOLYTIC ANEMIAS, BLOOD LOSS, ETC.). CONSIDER ALTERN ATE TESTING OR LABORATORY C ONSULTATION. LIPID [id number] 03:22:02 Test Item Value Reference Range Interpretation Comments CHOLESTEROL (test 285 MG/DL <200 H code = 2210) TRIGLYCERIDES (test 344 MG/DL <150 H code = 2232) HDL CHOLESTEROL (test 55 MG/DL >39 code = 2220) CALC LDL CHOL (test 172 MG/DL <100 H NOTE: C ALCULATED LDL code = 2237) IS BASED ON RON-DELGADO METHOD WHICHINCLUDES ADJUSTABLE TRIGLYCERIDE:VL DL CHOLESTEROL RAT IO.THIS FACTOR VARIES B Y MEASURED TRIGLY CERIDE AND NON-HDLCHOL ESTEROL CONCENTRATIONS WITH INCREASED CALCU LATED LDL SEENIN HIGH ER TRIGLYCERIDE OR LOWER NON-HDL SPECIME NS. FOR MOREINFORMATION , SEE CLIENT ANNOUNCE MENT AT [email or web address] RATIO LDL/HDL 3.13 RATIO <3.22 (test code = 2238) COMPREHENSIVE METABOLIC [id number] 03:22:02 Test Item Value Reference Range Interpretation Comments GLUCOSE (test code = 375 MG/DL 70-99 H 2216) BUN (test code = 5 MG/DL 6-20 L 2207) CREATININE (test 0.59 MG/DL 0.60-1.30 L code = 2213) eGFR (2020 CKD-EPI) 105 >60 (test code = 28143) ML/MIN/1.73 CALC BUN/CREAT (test 8 RATIO 6-28 code = 223) SODIUM (test code = 141 MEQ/L 693-203 1024) POTASSIUM (test code 4.4 MEQ/L 3.5-5.4 = 2227) CHLORIDE (test code 103 MEQ/L 95-107 = 2214) CARBON DIOXIDE (test 26 MEQ/L 19-31 code = 2205) CALCIUM (test code = 9.7 MG/DL 8.5-10.5 2208) PROTEIN, TOTAL (test 6.9 G/DL 6.1-8.3 code = 2228) ALBUMIN (test code = 4.4 G/DL 3.5-5.2 2200) CALC GLOBULIN (test 2.5 G/DL 1.9-3.7 code = 2239) CALC A/G RATIO (test 1.8 RATIO 1.0-2.6 code = 2233) BILIRUBIN, TOTAL 0.4 MG/DL See_Comment [Automated message] (test code = 2206) The syste m which generated this result transmit jarad reference range : <=1.2. The refe rence range was not u sed to interpret th is result as normal/abnormal . ALKALINE PHOSPHATASE 131 U/L 40-136 (test code = 2203) AST (test code = 17 U/L 9-40 2217) ALT (test code = 16 U/L 5-40 2218) [id number] 03:12:48 Test Item Value Reference Range Interpretation Comments AMYLASE (test code = 2204) 34 U/L 28-100 [id number] 03:12:48 Test Item Value Reference Range Interpretation Comments LIPASE (test code = 32 U/L 13-60 UNLESS OTHERWISE 2057) INDICATED, ALL TESTING PERFORMED [facility]CL[facility] PATH[facility] [address] [place] [id number] [facility] DIRECTOR: ANA DE LOS SANTOS M.D. CLIA NUMBER [id number] CAP ACCREDITATION N O. [id number] HEMOGLOBIN [id number] 12:16:03 Test Item Value Reference Range Interpretation Comments HEMOGLOBIN A1c (test 10.5 % 4.2-5.6 H AMERIC AN DIABETES code = 67130) ASSOCIATION IDELINES FOR HGB A1C: PREDIABETES/INC REASED RISK . . . . . . . 5 .7-6.4% DIAGNOSIS OF DI ABETES . . . . . . . . . >=6 .5% WITH CONFIRMATION OR APPROPRIATE SYMPTOMS NOTE: ASSAY MAY BE AFFECTED BY HEMOGLOBINOPATH IES (SICKLE CELL ANEMIA, S- C DISEASE, OTHERS) OR DAJA FICIALLY LOWERED BY DECR EASED RED CELL SURVIVAL ( HEMOLYTIC ANEMIAS, BLOOD LOSS, ETC.). CONSIDER ALTERN ATE TESTING OR LABORATORY C ONSULTATION. TSH, THIRD [id number] 06:20:16 Test Item Value Reference Range Interpretation Comments TSH, THIRD 1.170 UIU/ML 0.400-4.100 UNLESS OTHERWI SE GENERATION (test INDICATED, ALL TESTING code = 2821) PERFORMED [facility], [facility]. [address] [place] [address] DIRECTOR: ANA DE LOS SANTOS M.D. CLIA NUMBER [id number] CAP ACCREDITATION N O. [id number] CBC W/AUTO DIFF WITH [id number] 06:04:40 Test Item Value Reference Range Interpretation Comments WBC (test code = 7.1 K/UL 3.5-11.0 1001) RBC (test code = 5.08 M/UL 3.80-5.40 1002) HEMOGLOBIN (test code 15.4 G/DL 11.5-15.5 = 1003) HEMATOCRIT (test code 45.5 % 34.0-45.0 H = 1004) MCV (test code = 89.6 fL 80.0-99.0 1005) MCH (test code = 30.3 PG 25.0-33.0 1006) MCHC (test code = 33.8 G/DL 31.0-36.0 1007) RDW (test code = 12.6 % 11.5-15.0 1038) NEUTROPHILS (test 67.3 % code = 1008) LYMPHOCYTES (test 25.2 % code = 1010) MONOCYTES (test code 5.4 % = 1011) EOSINOPHILS (test 1.0 % code = 1012) BASOPHILS (test code 0.3 % = 1013) IMMATURE GRANULOCYTES 0.8 % (test code = 1036) NUCLEATED RBCS (test 0.0 /100 WBC'S See_Comment [Aut omated code = 1065) message] The sy stem which generated this result transmitted reference range : 0.0. The refere nce range was not u sed to interpret th is result as normal/abnormal . PLATELET COUNT (test 265 K/UL 130-400 code = 1015) ABSOLUTE NEUTROPHILS 4.78 K/UL 1.50-7.50 (test code = 1066) ABSOLUTE LYMPHOCYTES 1.79 K/UL 1.00-4.00 (test code = 1067) ABSOLUTE MONOCYTES 0.38 K/UL 0.20-1.00 (test code = 1068) ABSOLUTE EOSINOPHILS 0.07 K/UL 0.00-0.50 (test code = 1040) ABSOLUTE BASOPHILS 0.02 K/UL 0.00-0.20 (test code = 1069) ABS IMMATURE 0.06 K/UL 0.00-0.10 GRANULOCYTES (test code = 1020) ABS NUCLEATED RBCS 0.00 K/UL 0.00-0.11 (test code = 14655) COMPREHENSIVE METABOLIC [id number] 05:22:05 Test Item Value Reference Range Interpretation Comments GLUCOSE (test code = 251 MG/DL 70-99 H 2216) BUN (test code = 7 MG/DL 6-20 2207) CREATININE (test 0.59 MG/DL 0.60-1.30 L code = 2214) eGFR (2020 CKD-EPI) 106 >60 (test code = 50204) ML/MIN/1.73 CALC BUN/CREAT (test 12 RATIO 6-28 code = 2235) SODIUM (test code = 137 MEQ/L 087-539 7382) POTASSIUM (test code 4.5 MEQ/L 3.5-5.4 = 2227) CHLORIDE (test code 99 MEQ/L 95-107 = 2214) CARBON DIOXIDE (test 27 MEQ/L 19-31 code = 2206) CALCIUM (test code = 9.8 MG/DL 8.5-10.5 2208) PROTEIN, TOTAL (test 7.5 G/DL 6.1-8.3 code = 2229) ALBUMIN (test code = 4.4 G/DL 3.5-5.2 2200) CALC GLOBULIN (test 3.1 G/DL 1.9-3.7 code = 2240) CALC A/G RATIO (test 1.4 RATIO 1.0-2.6 code = 2234) BILIRUBIN, TOTAL 0.4 MG/DL See_Comment [Automated message] (test code = 220) The syste m which generated this result transmit jarad reference range : <=1.2. The refe rence range was not u sed to interpret th is result as normal/abnormal . ALKALINE PHOSPHATASE 140 U/L 40-136 H (test code = 220) AST (test code = 16 U/L 9-40 2217) ALT (test code = 16 U/L 5-40 2218) LIPID [id number] 05:22:05 Test Item Value Reference Range Interpretation Comments CHOLESTEROL (test 325 MG/DL <200 H code = 2210) TRIGLYCERIDES (test 318 MG/DL <150 H code = 2232) HDL CHOLESTEROL (test 60 MG/DL >39 code = 2220) CALC LDL CHOL (test 211 MG/DL <100 H NOTE: C ALCULATED LDL code = 2237) IS BASED ON RON-DELGADO METHOD WHICHINCLUDES ADJUSTABLE TRIGLYCERIDE:VL DL CHOLESTEROL RAT IO.THIS FACTOR VARIES B Y MEASURED TRIGLY CERIDE AND NON-HDLCHOL ESTEROL CONCENTRATIONS WITH INCREASED CALCU LATED LDL SEENIN HIGH ER TRIGLYCERIDE OR LOWER NON-HDL SPECIME NS. FOR MOREINFORMATION , SEE CLIENT ANNOUNCE MENT AT [email or web address] RISK RATIO LDL/HDL 3.52 RATIO <3.22 H (test code = 2238) COMPREHENSIVE METABOLIC [id number] 00:00:00 Test Item Value Reference Range Interpretation Comments GLUCOSE (test code = 2217) 251 MG/DL BUN (test code = 2208) 7 MG/DL CREATININE (test code = 2214) 0.59 MG/DL eGFR (2020 CKD-EPI) (test 106 ML/MIN/1.73 code = 56500) CALC BUN/CREAT (test code = 12 RATIO 2235) SODIUM (test code = 2231) 137 MEQ/L POTASSIUM (test code = 2228) 4.5 MEQ/L CHLORIDE (test code = 2215) 99 MEQ/L CARBON DIOXIDE (test code = 27 MEQ/L 2206) CALCIUM (test code = 2209) 9.8 MG/DL PROTEIN, TOTAL (test code = 7.5 G/DL 222) ALBUMIN (test code = 2201) 4.4 G/DL CALC GLOBULIN (test code = 3.1 G/DL 2240) CALC A/G RATIO (test code = 1.4 RATIO 2234) BILIRUBIN, TOTAL (test code = 0.4 MG/DL 220) ALKALINE PHOSPHATASE (test 140 U/L code = 2204) AST (test code = 2218) 16 U/L ALT (test code = 2219) 16 U/L COMPREHENSIVE METABOLIC [id number] 00:00:00 Test Item Value Reference Range Interpretation Comments GLUCOSE (test code = 2217) 251 MG/DL BUN (test code = 2208) 7 MG/DL CREATININE (test code = 2214) 0.59 MG/DL eGFR (2020 CKD-EPI) (test 106 ML/MIN/1.73 code = 01981) CALC BUN/CREAT (test code = 12 RATIO 2235) SODIUM (test code = 2231) 137 MEQ/L POTASSIUM (test code = 2228) 4.5 MEQ/L CHLORIDE (test code = 2215) 99 MEQ/L CARBON DIOXIDE (test code = 27 MEQ/L 2205) CALCIUM (test code = 2209) 9.8 MG/DL PROTEIN, TOTAL (test code = 7.5 G/DL 2228) ALBUMIN (test code = 2201) 4.4 G/DL CALC GLOBULIN (test code = 3.1 G/DL 2240) CALC A/G RATIO (test code = 1.4 RATIO 2234) BILIRUBIN, TOTAL (test code = 0.4 MG/DL 220) ALKALINE PHOSPHATASE (test 140 U/L code = 2204) AST (test code = 2218) 16 U/L ALT (test code = 2219) 16 U/L LIPID [id number] 00:00:00 Test Item Value Reference Range Interpretation Comments CHOLESTEROL (test code = 2210) 325 MG/DL TRIGLYCERIDES (test code = 2232) 318 MG/DL HDL CHOLESTEROL (test code = 2220) 60 MG/DL CALC LDL CHOL (test code = 2237) 211 MG/DL RISK RATIO LDL/HDL (test code = 3.52 RATIO 2238) LIPID [id number] 00:00:00 Test Item Value Reference Range Interpretation Comments CHOLESTEROL (test code = 2210) 325 MG/DL TRIGLYCERIDES (test code = 2232) 318 MG/DL HDL CHOLESTEROL (test code = 2220) 60 MG/DL CALC LDL CHOL (test code = 2237) 211 MG/DL RISK RATIO LDL/HDL (test code = 3.52 RATIO 2238) CBC W/AUTO [id number] 00:00:00 Test Item Value Reference Range Interpretation Comments WBC (test code = 1001) 7.1 K/UL RBC (test code = 1002) 5.08 M/UL HEMOGLOBIN (test code = 1003) 15.4 G/DL HEMATOCRIT (test code = 1004) 45.5 % MCV (test code = 1005) 89.6 fL MCH (test code = 1006) 30.3 PG MCHC (test code = 1007) 33.8 G/DL RDW (test code = 1038) 12.6 % NEUTROPHILS (test code = 1008) 67.3 % LYMPHOCYTES (test code = 1010) 25.2 % MONOCYTES (test code = 1011) 5.4 % EOSINOPHILS (test code = 1012) 1.0 % BASOPHILS (test code = 1013) 0.3 % IMMATURE GRANULOCYTES (test 0.8 % code = 1036) NUCLEATED RBCS (test code = 0.0 /100WBC'S 1065) PLATELET COUNT (test code = 265 K/UL 1015) ABSOLUTE NEUTROPHILS (test code 4.78 K/UL = 1066) ABSOLUTE LYMPHOCYTES (test code 1.79 K/UL = 1067) ABSOLUTE MONOCYTES (test code = 0.38 K/UL 1068) ABSOLUTE EOSINOPHILS (test code 0.07 K/UL = 1040) ABSOLUTE BASOPHILS (test code = 0.02 K/UL 1069) ABS IMMATURE GRANULOCYTES (test 0.06 K/UL code = 1020) ABS NUCLEATED RBCS (test code = 0.00 K/UL 09539) CBC W/AUTO [id number] 00:00:00 Test Item Value Reference Range Interpretation Comments WBC (test code = 1001) 7.1 K/UL RBC (test code = 1002) 5.08 M/UL HEMOGLOBIN (test code = 1003) 15.4 G/DL HEMATOCRIT (test code = 1004) 45.5 % MCV (test code = 1005) 89.6 fL MCH (test code = 1006) 30.3 PG MCHC (test code = 1007) 33.8 G/DL RDW (test code = 1038) 12.6 % NEUTROPHILS (test code = 1008) 67.3 % LYMPHOCYTES (test code = 1010) 25.2 % MONOCYTES (test code = 1011) 5.4 % EOSINOPHILS (test code = 1012) 1.0 % BASOPHILS (test code = 1013) 0.3 % IMMATURE GRANULOCYTES (test 0.8 % code = 1036) NUCLEATED RBCS (test code = 0.0 /100WBC'S 1065) PLATELET COUNT (test code = 265 K/UL 1015) ABSOLUTE NEUTROPHILS (test code 4.78 K/UL = 1066) ABSOLUTE LYMPHOCYTES (test code 1.79 K/UL = 1067) ABSOLUTE MONOCYTES (test code = 0.38 K/UL 1068) ABSOLUTE EOSINOPHILS (test code 0.07 K/UL = 1040) ABSOLUTE BASOPHILS (test code = 0.02 K/UL 1069) ABS IMMATURE GRANULOCYTES (test 0.06 K/UL code = 1020) ABS NUCLEATED RBCS (test code = 0.00 K/UL 89879) CBC W/AUTO [id number] 00:00:00 Test Item Value Reference Range Interpretation Comments WBC (test code = 1001) 7.1 K/UL RBC (test code = 1002) 5.08 M/UL HEMOGLOBIN (test code = 1003) 15.4 G/DL HEMATOCRIT (test code = 1004) 45.5 % MCV (test code = 1005) 89.6 fL MCH (test code = 1006) 30.3 PG MCHC (test code = 1007) 33.8 G/DL RDW (test code = 1038) 12.6 % NEUTROPHILS (test code = 1008) 67.3 % LYMPHOCYTES (test code = 1010) 25.2 % MONOCYTES (test code = 1011) 5.4 % EOSINOPHILS (test code = 1012) 1.0 % BASOPHILS (test code = 1013) 0.3 % IMMATURE GRANULOCYTES (test 0.8 % code = 1036) NUCLEATED RBCS (test code = 0.0 /100WBC'S 1065) PLATELET COUNT (test code = 265 K/UL 1015) ABSOLUTE NEUTROPHILS (test code 4.78 K/UL = 1066) ABSOLUTE LYMPHOCYTES (test code 1.79 K/UL = 1067) ABSOLUTE MONOCYTES (test code = 0.38 K/UL 1068) ABSOLUTE EOSINOPHILS (test code 0.07 K/UL = 1040) ABSOLUTE BASOPHILS (test code = 0.02 K/UL 1069) ABS IMMATURE GRANULOCYTES (test 0.06 K/UL code = 1020) ABS NUCLEATED RBCS (test code = 0.00 K/UL 16002) HEMOGLOBIN [id number] 00:00:00 Test Item Value Reference Range Interpretation Comments HEMOGLOBIN A1c (test code = 95143) 10.5 % HEMOGLOBIN [id number] 00:00:00 Test Item Value Reference Range Interpretation Comments HEMOGLOBIN A1c (test code = 37856) 10.5 % HEMOGLOBIN [id number] 00:00:00 Test Item Value Reference Range Interpretation Comments HEMOGLOBIN A1c (test code = 20616) 10.5 % [id number] 00:00:00 Test Item Value Reference Range Interpretation Comments TSH, THIRD GENERATION (test code 1.170 UIU/ML = 2821) [id number] 00:00:00 Test Item Value Reference Range Interpretation Comments TSH, THIRD GENERATION (test code 1.170 UIU/ML = 2821) [id number] 00:00:00 Test Item Value Reference Range Interpretation Comments TSH, THIRD GENERATION (test code 1.170 UIU/ML = 2821) COMPREHENSIVE METABOLIC [id number] 00:00:00 Test Item Value Reference Range Interpretation Comments GLUCOSE (test code = 2217) 251 MG/DL BUN (test code = 2208) 7 MG/DL CREATININE (test code = 2214) 0.59 MG/DL eGFR (2020 CKD-EPI) (test 106 ML/MIN/1.73 code = 79810) CALC BUN/CREAT (test code = 12 RATIO 2235) SODIUM (test code = 2231) 137 MEQ/L POTASSIUM (test code = 2228) 4.5 MEQ/L CHLORIDE (test code = 2215) 99 MEQ/L CARBON DIOXIDE (test code = 27 MEQ/L 2205) CALCIUM (test code = 2209) 9.8 MG/DL PROTEIN, TOTAL (test code = 7.5 G/DL 2229) ALBUMIN (test code = 2201) 4.4 G/DL CALC GLOBULIN (test code = 3.1 G/DL 2240) CALC A/G RATIO (test code = 1.4 RATIO 2234) BILIRUBIN, TOTAL (test code = 0.4 MG/DL 220) ALKALINE PHOSPHATASE (test 140 U/L code = 2204) AST (test code = 2218) 16 U/L ALT (test code = 2219) 16 U/L COMPREHENSIVE METABOLIC [id number] 00:00:00 Test Item Value Reference Range Interpretation Comments GLUCOSE (test code = 2217) 251 MG/DL BUN (test code = 2208) 7 MG/DL CREATININE (test code = 2214) 0.59 MG/DL eGFR (2020 CKD-EPI) (test 106 ML/MIN/1.73 code = 85893) CALC BUN/CREAT (test code = 12 RATIO 2235) SODIUM (test code = 2231) 137 MEQ/L POTASSIUM (test code = 2228) 4.5 MEQ/L CHLORIDE (test code = 2215) 99 MEQ/L CARBON DIOXIDE (test code = 27 MEQ/L 2205) CALCIUM (test code = 2209) 9.8 MG/DL PROTEIN, TOTAL (test code = 7.5 G/DL 2228) ALBUMIN (test code = 2201) 4.4 G/DL CALC GLOBULIN (test code = 3.1 G/DL 2240) CALC A/G RATIO (test code = 1.4 RATIO 2234) BILIRUBIN, TOTAL (test code = 0.4 MG/DL 2207) ALKALINE PHOSPHATASE (test 140 U/L code = 2204) AST (test code = 2218) 16 U/L ALT (test code = 2219) 16 U/L LIPID [id number] 00:00:00 Test Item Value Reference Range Interpretation Comments CHOLESTEROL (test code = 2210) 325 MG/DL TRIGLYCERIDES (test code = 2232) 318 MG/DL HDL CHOLESTEROL (test code = 2220) 60 MG/DL CALC LDL CHOL (test code = 2237) 211 MG/DL RISK RATIO LDL/HDL (test code = 3.52 RATIO 2238) LIPID [id number] 00:00:00 Test Item Value Reference Range Interpretation Comments CHOLESTEROL (test code = 2210) 325 MG/DL TRIGLYCERIDES (test code = 2232) 318 MG/DL HDL CHOLESTEROL (test code = 2220) 60 MG/DL CALC LDL CHOL (test code = 2237) 211 MG/DL RISK RATIO LDL/HDL (test code = 3.52 RATIO 2238) CBC W/AUTO [id number] 00:00:00 Test Item Value Reference Range Interpretation Comments WBC (test code = 1001) 7.1 K/UL RBC (test code = 1002) 5.08 M/UL HEMOGLOBIN (test code = 1003) 15.4 G/DL HEMATOCRIT (test code = 1004) 45.5 % MCV (test code = 1005) 89.6 fL MCH (test code = 1006) 30.3 PG MCHC (test code = 1007) 33.8 G/DL RDW (test code = 1038) 12.6 % NEUTROPHILS (test code = 1008) 67.3 % LYMPHOCYTES (test code = 1010) 25.2 % MONOCYTES (test code = 1011) 5.4 % EOSINOPHILS (test code = 1012) 1.0 % BASOPHILS (test code = 1013) 0.3 % IMMATURE GRANULOCYTES (test 0.8 % code = 1036) NUCLEATED RBCS (test code = 0.0 /100WBC'S 1065) PLATELET COUNT (test code = 265 K/UL 1015) ABSOLUTE NEUTROPHILS (test code 4.78 K/UL = 1066) ABSOLUTE LYMPHOCYTES (test code 1.79 K/UL = 1067) ABSOLUTE MONOCYTES (test code = 0.38 K/UL 1068) ABSOLUTE EOSINOPHILS (test code 0.07 K/UL = 1040) ABSOLUTE BASOPHILS (test code = 0.02 K/UL 1069) ABS IMMATURE GRANULOCYTES (test 0.06 K/UL code = 1020) ABS NUCLEATED RBCS (test code = 0.00 K/UL 88599) CBC W/AUTO [id number] 00:00:00 Test Item Value Reference Range Interpretation Comments WBC (test code = 1001) 7.1 K/UL RBC (test code = 1002) 5.08 M/UL HEMOGLOBIN (test code = 1003) 15.4 G/DL HEMATOCRIT (test code = 1004) 45.5 % MCV (test code = 1005) 89.6 fL MCH (test code = 1006) 30.3 PG MCHC (test code = 1007) 33.8 G/DL RDW (test code = 1038) 12.6 % NEUTROPHILS (test code = 1008) 67.3 % LYMPHOCYTES (test code = 1010) 25.2 % MONOCYTES (test code = 1011) 5.4 % EOSINOPHILS (test code = 1012) 1.0 % BASOPHILS (test code = 1013) 0.3 % IMMATURE GRANULOCYTES (test 0.8 % code = 1036) NUCLEATED RBCS (test code = 0.0 /100WBC'S 1065) PLATELET COUNT (test code = 265 K/UL 1015) ABSOLUTE NEUTROPHILS (test code 4.78 K/UL = 1066) ABSOLUTE LYMPHOCYTES (test code 1.79 K/UL = 1067) ABSOLUTE MONOCYTES (test code = 0.38 K/UL 1068) ABSOLUTE EOSINOPHILS (test code 0.07 K/UL = 1040) ABSOLUTE BASOPHILS (test code = 0.02 K/UL 1069) ABS IMMATURE GRANULOCYTES (test 0.06 K/UL code = 1020) ABS NUCLEATED RBCS (test code = 0.00 K/UL 05785) CBC W/AUTO [id number] 00:00:00 Test Item Value Reference Range Interpretation Comments WBC (test code = 1001) 7.1 K/UL RBC (test code = 1002) 5.08 M/UL HEMOGLOBIN (test code = 1003) 15.4 G/DL HEMATOCRIT (test code = 1004) 45.5 % MCV (test code = 1005) 89.6 fL MCH (test code = 1006) 30.3 PG MCHC (test code = 1007) 33.8 G/DL RDW (test code = 1038) 12.6 % NEUTROPHILS (test code = 1008) 67.3 % LYMPHOCYTES (test code = 1010) 25.2 % MONOCYTES (test code = 1011) 5.4 % EOSINOPHILS (test code = 1012) 1.0 % BASOPHILS (test code = 1013) 0.3 % IMMATURE GRANULOCYTES (test 0.8 % code = 1036) NUCLEATED RBCS (test code = 0.0 /100WBC'S 1065) PLATELET COUNT (test code = 265 K/UL 1015) ABSOLUTE NEUTROPHILS (test code 4.78 K/UL = 1066) ABSOLUTE LYMPHOCYTES (test code 1.79 K/UL = 1067) ABSOLUTE MONOCYTES (test code = 0.38 K/UL 1068) ABSOLUTE EOSINOPHILS (test code 0.07 K/UL = 1040) ABSOLUTE BASOPHILS (test code = 0.02 K/UL 1069) ABS IMMATURE GRANULOCYTES (test 0.06 K/UL code = 1020) ABS NUCLEATED RBCS (test code = 0.00 K/UL 19356) HEMOGLOBIN [id number] 00:00:00 Test Item Value Reference Range Interpretation Comments HEMOGLOBIN A1c (test code = 90740) 10.5 % HEMOGLOBIN [id number] 00:00:00 Test Item Value Reference Range Interpretation Comments HEMOGLOBIN A1c (test code = 51273) 10.5 % HEMOGLOBIN [id number] 00:00:00 Test Item Value Reference Range Interpretation Comments HEMOGLOBIN A1c (test code = 14019) 10.5 % [id number] 00:00:00 Test Item Value Reference Range Interpretation Comments TSH, THIRD GENERATION (test code 1.170 UIU/ML = 2821) [id number] 00:00:00 Test Item Value Reference Range Interpretation Comments TSH, THIRD GENERATION (test code 1.170 UIU/ML = 2821) [id number] 00:00:00 Test Item Value Reference Range Interpretation Comments TSH, THIRD GENERATION (test code 1.170 UIU/ML = 2821) COMPREHENSIVE METABOLIC [id number] 00:00:00 Test Item Value Reference Range Interpretation Comments GLUCOSE (test code = 2217) 251 MG/DL BUN (test code = 2208) 7 MG/DL CREATININE (test code = 2214) 0.59 MG/DL eGFR (2020 CKD-EPI) (test 106 ML/MIN/1.73 code = 55821) CALC BUN/CREAT (test code = 12 RATIO 2235) SODIUM (test code = 2231) 137 MEQ/L POTASSIUM (test code = 2228) 4.5 MEQ/L CHLORIDE (test code = 2215) 99 MEQ/L CARBON DIOXIDE (test code = 27 MEQ/L 2205) CALCIUM (test code = 2209) 9.8 MG/DL PROTEIN, TOTAL (test code = 7.5 G/DL 2228) ALBUMIN (test code = 2201) 4.4 G/DL CALC GLOBULIN (test code = 3.1 G/DL 0) CALC A/G RATIO (test code = 1.4 RATIO 2233) BILIRUBIN, TOTAL (test code = 0.4 MG/DL 2207) ALKALINE PHOSPHATASE (test 140 U/L code = 2204) AST (test code = 2218) 16 U/L ALT (test code = 2219) 16 U/L COMPREHENSIVE METABOLIC [id number] 00:00:00 Test Item Value Reference Range Interpretation Comments GLUCOSE (test code = 2217) 251 MG/DL BUN (test code = 2208) 7 MG/DL CREATININE (test code = 2214) 0.59 MG/DL eGFR (2020 CKD-EPI) (test 106 ML/MIN/1.73 code = 58617) CALC BUN/CREAT (test code = 12 RATIO 2235) SODIUM (test code = 2231) 137 MEQ/L POTASSIUM (test code = 2228) 4.5 MEQ/L CHLORIDE (test code = 2215) 99 MEQ/L CARBON DIOXIDE (test code = 27 MEQ/L 2205) CALCIUM (test code = 2209) 9.8 MG/DL PROTEIN, TOTAL (test code = 7.5 G/DL 2228) ALBUMIN (test code = 2201) 4.4 G/DL CALC GLOBULIN (test code = 3.1 G/DL 2239) CALC A/G RATIO (test code = 1.4 RATIO 2234) BILIRUBIN, TOTAL (test code = 0.4 MG/DL 2206) ALKALINE PHOSPHATASE (test 140 U/L code = 2204) AST (test code = 2218) 16 U/L ALT (test code = 2219) 16 U/L COMPREHENSIVE METABOLIC [id number] 00:00:00 Test Item Value Reference Range Interpretation Comments GLUCOSE (test code = 2217) 251 MG/DL BUN (test code = 2208) 7 MG/DL CREATININE (test code = 2214) 0.59 MG/DL eGFR (2020 CKD-EPI) (test 106 ML/MIN/1.73 code = 75953) CALC BUN/CREAT (test code = 12 RATIO 2235) SODIUM (test code = 2231) 137 MEQ/L POTASSIUM (test code = 2228) 4.5 MEQ/L CHLORIDE (test code = 2215) 99 MEQ/L CARBON DIOXIDE (test code = 27 MEQ/L 220) CALCIUM (test code = 2209) 9.8 MG/DL PROTEIN, TOTAL (test code = 7.5 G/DL 2228) ALBUMIN (test code = 2201) 4.4 G/DL CALC GLOBULIN (test code = 3.1 G/DL 2240) CALC A/G RATIO (test code = 1.4 RATIO 223) BILIRUBIN, TOTAL (test code = 0.4 MG/DL 2206) ALKALINE PHOSPHATASE (test 140 U/L code = 2204) AST (test code = 2218) 16 U/L ALT (test code = 2219) 16 U/L LIPID [id number] 00:00:00 Test Item Value Reference Range Interpretation Comments CHOLESTEROL (test code = 2210) 325 MG/DL TRIGLYCERIDES (test code = 2232) 318 MG/DL HDL CHOLESTEROL (test code = 2220) 60 MG/DL CALC LDL CHOL (test code = 2237) 211 MG/DL RISK RATIO LDL/HDL (test code = 3.52 RATIO 2238) LIPID [id number] 00:00:00 Test Item Value Reference Range Interpretation Comments CHOLESTEROL (test code = 2210) 325 MG/DL TRIGLYCERIDES (test code = 2232) 318 MG/DL HDL CHOLESTEROL (test code = 2220) 60 MG/DL CALC LDL CHOL (test code = 2237) 211 MG/DL RISK RATIO LDL/HDL (test code = 3.52 RATIO 2238) COMPREHENSIVE METABOLIC [id number] 00:00:00 Test Item Value Reference Range Interpretation Comments GLUCOSE (test code = 2217) 251 MG/DL BUN (test code = 2208) 7 MG/DL CREATININE (test code = 2214) 0.59 MG/DL eGFR (2020 CKD-EPI) (test 106 ML/MIN/1.73 code = 21732) CALC BUN/CREAT (test code = 12 RATIO 2235) SODIUM (test code = 2231) 137 MEQ/L POTASSIUM (test code = 2228) 4.5 MEQ/L CHLORIDE (test code = 2215) 99 MEQ/L CARBON DIOXIDE (test code = 27 MEQ/L 2205) CALCIUM (test code = 2209) 9.8 MG/DL PROTEIN, TOTAL (test code = 7.5 G/DL 2228) ALBUMIN (test code = 2201) 4.4 G/DL CALC GLOBULIN (test code = 3.1 G/DL 2240) CALC A/G RATIO (test code = 1.4 RATIO 223) BILIRUBIN, TOTAL (test code = 0.4 MG/DL 2207) ALKALINE PHOSPHATASE (test 140 U/L code = 2204) AST (test code = 2218) 16 U/L ALT (test code = 2219) 16 U/L CBC W/AUTO [id number] 00:00:00 Test Item Value Reference Range Interpretation Comments WBC (test code = 1001) 7.1 K/UL RBC (test code = 1002) 5.08 M/UL HEMOGLOBIN (test code = 1003) 15.4 G/DL HEMATOCRIT (test code = 1004) 45.5 % MCV (test code = 1005) 89.6 fL MCH (test code = 1006) 30.3 PG MCHC (test code = 1007) 33.8 G/DL RDW (test code = 1038) 12.6 % NEUTROPHILS (test code = 1008) 67.3 % LYMPHOCYTES (test code = 1010) 25.2 % MONOCYTES (test code = 1011) 5.4 % EOSINOPHILS (test code = 1012) 1.0 % BASOPHILS (test code = 1013) 0.3 % IMMATURE GRANULOCYTES (test 0.8 % code = 1036) NUCLEATED RBCS (test code = 0.0 /100WBC'S 1065) PLATELET COUNT (test code = 265 K/UL 1015) ABSOLUTE NEUTROPHILS (test code 4.78 K/UL = 1066) ABSOLUTE LYMPHOCYTES (test code 1.79 K/UL = 1067) ABSOLUTE MONOCYTES (test code = 0.38 K/UL 1068) ABSOLUTE EOSINOPHILS (test code 0.07 K/UL = 1040) ABSOLUTE BASOPHILS (test code = 0.02 K/UL 1069) ABS IMMATURE GRANULOCYTES (test 0.06 K/UL code = 1020) ABS NUCLEATED RBCS (test code = 0.00 K/UL 28745) CBC W/AUTO [id number] 00:00:00 Test Item Value Reference Range Interpretation Comments WBC (test code = 1001) 7.1 K/UL RBC (test code = 1002) 5.08 M/UL HEMOGLOBIN (test code = 1003) 15.4 G/DL HEMATOCRIT (test code = 1004) 45.5 % MCV (test code = 1005) 89.6 fL MCH (test code = 1006) 30.3 PG MCHC (test code = 1007) 33.8 G/DL RDW (test code = 1038) 12.6 % NEUTROPHILS (test code = 1008) 67.3 % LYMPHOCYTES (test code = 1010) 25.2 % MONOCYTES (test code = 1011) 5.4 % EOSINOPHILS (test code = 1012) 1.0 % BASOPHILS (test code = 1013) 0.3 % IMMATURE GRANULOCYTES (test 0.8 % code = 1036) NUCLEATED RBCS (test code = 0.0 /100WBC'S 1065) PLATELET COUNT (test code = 265 K/UL 1015) ABSOLUTE NEUTROPHILS (test code 4.78 K/UL = 1066) ABSOLUTE LYMPHOCYTES (test code 1.79 K/UL = 1067) ABSOLUTE MONOCYTES (test code = 0.38 K/UL 1068) ABSOLUTE EOSINOPHILS (test code 0.07 K/UL = 1040) ABSOLUTE BASOPHILS (test code = 0.02 K/UL 1069) ABS IMMATURE GRANULOCYTES (test 0.06 K/UL code = 1020) ABS NUCLEATED RBCS (test code = 0.00 K/UL 74428) CBC W/AUTO [id number] 00:00:00 Test Item Value Reference Range Interpretation Comments WBC (test code = 1001) 7.1 K/UL RBC (test code = 1002) 5.08 M/UL HEMOGLOBIN (test code = 1003) 15.4 G/DL HEMATOCRIT (test code = 1004) 45.5 % MCV (test code = 1005) 89.6 fL MCH (test code = 1006) 30.3 PG MCHC (test code = 1007) 33.8 G/DL RDW (test code = 1038) 12.6 % NEUTROPHILS (test code = 1008) 67.3 % LYMPHOCYTES (test code = 1010) 25.2 % MONOCYTES (test code = 1011) 5.4 % EOSINOPHILS (test code = 1012) 1.0 % BASOPHILS (test code = 1013) 0.3 % IMMATURE GRANULOCYTES (test 0.8 % code = 1036) NUCLEATED RBCS (test code = 0.0 /100WBC'S 1065) PLATELET COUNT (test code = 265 K/UL 1015) ABSOLUTE NEUTROPHILS (test code 4.78 K/UL = 1066) ABSOLUTE LYMPHOCYTES (test code 1.79 K/UL = 1067) ABSOLUTE MONOCYTES (test code = 0.38 K/UL 1068) ABSOLUTE EOSINOPHILS (test code 0.07 K/UL = 1040) ABSOLUTE BASOPHILS (test code = 0.02 K/UL 1069) ABS IMMATURE GRANULOCYTES (test 0.06 K/UL code = 1020) ABS NUCLEATED RBCS (test code = 0.00 K/UL 89943) HEMOGLOBIN [id number] 00:00:00 Test Item Value Reference Range Interpretation Comments HEMOGLOBIN A1c (test code = 11008) 10.5 % HEMOGLOBIN [id number] 00:00:00 Test Item Value Reference Range Interpretation Comments HEMOGLOBIN A1c (test code = 55132) 10.5 % HEMOGLOBIN [id number] 00:00:00 Test Item Value Reference Range Interpretation Comments HEMOGLOBIN A1c (test code = 55326) 10.5 % [id number] 00:00:00 Test Item Value Reference Range Interpretation Comments TSH, THIRD GENERATION (test code 1.170 UIU/ML = 2821) [id number] 00:00:00 Test Item Value Reference Range Interpretation Comments TSH, THIRD GENERATION (test code 1.170 UIU/ML = 2821) [id number] 00:00:00 Test Item Value Reference Range Interpretation Comments TSH, THIRD GENERATION (test code 1.170 UIU/ML = 2821) LIPID [id number] 00:00:00 Test Item Value Reference Range Interpretation Comments CHOLESTEROL (test code = 2210) 325 MG/DL TRIGLYCERIDES (test code = 2232) 318 MG/DL HDL CHOLESTEROL (test code = 2220) 60 MG/DL CALC LDL CHOL (test code = 2237) 211 MG/DL RISK RATIO LDL/HDL (test code = 3.52 RATIO 2238) LIPID [id number] 00:00:00 Test Item Value Reference Range Interpretation Comments CHOLESTEROL (test code = 2210) 325 MG/DL TRIGLYCERIDES (test code = 2232) 318 MG/DL HDL CHOLESTEROL (test code = 2220) 60 MG/DL CALC LDL CHOL (test code = 2237) 211 MG/DL RISK RATIO LDL/HDL (test code = 3.52 RATIO 2238) CBC W/AUTO [id number] 00:00:00 Test Item Value Reference Range Interpretation Comments WBC (test code = 1001) 7.1 K/UL RBC (test code = 1002) 5.08 M/UL HEMOGLOBIN (test code = 1003) 15.4 G/DL HEMATOCRIT (test code = 1004) 45.5 % MCV (test code = 1005) 89.6 fL MCH (test code = 1006) 30.3 PG MCHC (test code = 1007) 33.8 G/DL RDW (test code = 1038) 12.6 % NEUTROPHILS (test code = 1008) 67.3 % LYMPHOCYTES (test code = 1010) 25.2 % MONOCYTES (test code = 1011) 5.4 % EOSINOPHILS (test code = 1012) 1.0 % BASOPHILS (test code = 1013) 0.3 % IMMATURE GRANULOCYTES (test 0.8 % code = 1036) NUCLEATED RBCS (test code = 0.0 /100WBC'S 1065) PLATELET COUNT (test code = 265 K/UL 1015) ABSOLUTE NEUTROPHILS (test code 4.78 K/UL = 1066) ABSOLUTE LYMPHOCYTES (test code 1.79 K/UL = 1067) ABSOLUTE MONOCYTES (test code = 0.38 K/UL 1068) ABSOLUTE EOSINOPHILS (test code 0.07 K/UL = 1040) ABSOLUTE BASOPHILS (test code = 0.02 K/UL 1069) ABS IMMATURE GRANULOCYTES (test 0.06 K/UL code = 1020) ABS NUCLEATED RBCS (test code = 0.00 K/UL 18088) CBC W/AUTO [id number] 00:00:00 Test Item Value Reference Range Interpretation Comments WBC (test code = 1001) 7.1 K/UL RBC (test code = 1002) 5.08 M/UL HEMOGLOBIN (test code = 1003) 15.4 G/DL HEMATOCRIT (test code = 1004) 45.5 % MCV (test code = 1005) 89.6 fL MCH (test code = 1006) 30.3 PG MCHC (test code = 1007) 33.8 G/DL RDW (test code = 1038) 12.6 % NEUTROPHILS (test code = 1008) 67.3 % LYMPHOCYTES (test code = 1010) 25.2 % MONOCYTES (test code = 1011) 5.4 % EOSINOPHILS (test code = 1012) 1.0 % BASOPHILS (test code = 1013) 0.3 % IMMATURE GRANULOCYTES (test 0.8 % code = 1036) NUCLEATED RBCS (test code = 0.0 /100WBC'S 1065) PLATELET COUNT (test code = 265 K/UL 1015) ABSOLUTE NEUTROPHILS (test code 4.78 K/UL = 1066) ABSOLUTE LYMPHOCYTES (test code 1.79 K/UL = 1067) ABSOLUTE MONOCYTES (test code = 0.38 K/UL 1068) ABSOLUTE EOSINOPHILS (test code 0.07 K/UL = 1040) ABSOLUTE BASOPHILS (test code = 0.02 K/UL 1069) ABS IMMATURE GRANULOCYTES (test 0.06 K/UL code = 1020) ABS NUCLEATED RBCS (test code = 0.00 K/UL 49187) CBC W/AUTO [id number] 00:00:00 Test Item Value Reference Range Interpretation Comments WBC (test code = 1001) 7.1 K/UL RBC (test code = 1002) 5.08 M/UL HEMOGLOBIN (test code = 1003) 15.4 G/DL HEMATOCRIT (test code = 1004) 45.5 % MCV (test code = 1005) 89.6 fL MCH (test code = 1006) 30.3 PG MCHC (test code = 1007) 33.8 G/DL RDW (test code = 1038) 12.6 % NEUTROPHILS (test code = 1008) 67.3 % LYMPHOCYTES (test code = 1010) 25.2 % MONOCYTES (test code = 1011) 5.4 % EOSINOPHILS (test code = 1012) 1.0 % BASOPHILS (test code = 1013) 0.3 % IMMATURE GRANULOCYTES (test 0.8 % code = 1036) NUCLEATED RBCS (test code = 0.0 /100WBC'S 1065) PLATELET COUNT (test code = 265 K/UL 1015) ABSOLUTE NEUTROPHILS (test code 4.78 K/UL = 1066) ABSOLUTE LYMPHOCYTES (test code 1.79 K/UL = 1067) ABSOLUTE MONOCYTES (test code = 0.38 K/UL 1068) ABSOLUTE EOSINOPHILS (test code 0.07 K/UL = 1040) ABSOLUTE BASOPHILS (test code = 0.02 K/UL 1069) ABS IMMATURE GRANULOCYTES (test 0.06 K/UL code = 1020) ABS NUCLEATED RBCS (test code = 0.00 K/UL 67031) HEMOGLOBIN [id number] 00:00:00 Test Item Value Reference Range Interpretation Comments HEMOGLOBIN A1c (test code = 69166) 10.5 % HEMOGLOBIN [id number] 00:00:00 Test Item Value Reference Range Interpretation Comments HEMOGLOBIN A1c (test code = 77263) 10.5 % HEMOGLOBIN [id number] 00:00:00 Test Item Value Reference Range Interpretation Comments HEMOGLOBIN A1c (test code = 29851) 10.5 % [id number] 00:00:00 Test Item Value Reference Range Interpretation Comments TSH, THIRD GENERATION (test code 1.170 UIU/ML = 2821) [id number] 00:00:00 Test Item Value Reference Range Interpretation Comments TSH, THIRD GENERATION (test code 1.170 UIU/ML = 2821) [id number] 00:00:00 Test Item Value Reference Range Interpretation Comments TSH, THIRD GENERATION (test code 1.170 UIU/ML = 2821) HEMOGLOBIN [id number] 08:44:14 Test Item Value Reference Range Interpretation Comments HEMOGLOBIN A1c (test 11.3 % 4.2-5.6 H [facility] CAN DIABETES code = 38785) ASSOCIATION IDELINES FOR HGB A1C: PREDIABETES/INC REASED RISK . . . . . . . 5 .7-6.4% DIAGNOSIS OF DI ABETES . . . . . . . . . >=6 .5% WITH CONFIRMATION OR APPROPRIATE SYMPTOMS NOTE: ASSAY MAY BE AFFECTED BY HEMOGLOBINOPATH IES (SICKLE CELL ANEMIA, S- C DISEASE, OTHERS) OR DAJA FICIALLY LOWERED BY DECR EASED RED CELL SURVIVAL ( HEMOLYTIC ANEMIAS, BLOOD LOSS, ETC.). CONSIDER ALTERN ATE TESTING OR LABORATORY C ONSULTATION. CBC W/AUTO DIFF WITH [id number] 07:50:18 Test Item Value Reference Range Interpretation [...] = 1036) NUCLEATED RBCS (test 0.0 /100 WBC'S See_Comment [Aut omated code = 1065) message] The sy stem which generated this [...] RBCS 0.00 K/UL 0.00-0.11 (test code = 98721) LIPID [id number] 05:17:12 Test Item Value Reference Range Interpretation [...] , SEE CLIENT ANNOUNCE MENT AT [email or web address] RISK RATIO LDL/HDL 2.21 RATIO <3.22 (test code = 2238) COMPREHENSIVE METABOLIC [id number] 05:17:12 Test Item Value Reference Range Interpretation Comments GLUCOSE (test code = 217 MG/DL 70-99 H 2216) BUN (test code = 9 MG/DL 6-20 2207) CREATININE (test 0.50 MG/DL 0.60-1.30 L code = 2214) eGFR (2020 CKD-EPI) 110 >60 (test code = 17183) ML/MIN/1.73 CALC BUN/CREAT (test 18 RATIO 6-28 code = 2235) SODIUM (test code = 137 MEQ/L 286-550 8097) POTASSIUM (test code 4.1 MEQ/L 3.5-5.4 = 2227) CHLORIDE (test code 100 MEQ/L 95-107 = 2214) CARBON DIOXIDE (test 25 MEQ/L 19-31 code = 220) CALCIUM (test code = 10.1 MG/DL 8.5-10.5 2208) PROTEIN, TOTAL (test 7.3 G/DL 6.1-8.3 code = 2228) ALBUMIN (test code = 4.8 G/DL 3.5-5.2 2200) CALC GLOBULIN (test 2.5 G/DL 1.9-3.7 code = 2240) CALC A/G RATIO (test 1.9 RATIO 1.0-2.6 code = 2234) BILIRUBIN, TOTAL 0.5 MG/DL See_Comment [Automated message] (test code = 2207) The syste m which generated this result transmitted ref erence range: <=1.2. T he reference range was not used to int erpret this result as normal/abnormal . ALKALINE PHOSPHATASE 164 U/L 40-136 H (test code = 220) AST (test code = 15 U/L 9-40 2217) ALT (test code = 23 U/L 5-40 UNLESS OTH ERWISE 2218) INDICATED, ALL TESTING PERFORM [facility] [place] [address] [place] [address] [facility] DIRECTOR: ANA DE LOS SANTOS M.D. CLIA NUMBER [id number] CAP ACCREDITATION N O. [id number] CBC W/AUTO [id number] 00:00:00 Test Item Value Reference Range Interpretation Comments WBC (test code = 1001) 6.6 K/UL RBC (test code = 1002) 4.61 M/UL HEMOGLOBIN (test code = 1003) 14.4 G/DL HEMATOCRIT (test code = 1004) 40.8 % MCV (test code = 1005) 88.5 fL MCH (test code = 1006) 31.2 PG MCHC (test code = 1007) 35.3 G/DL RDW (test code = 1038) 11.9 % NEUTROPHILS (test code = 1008) 63.6 % LYMPHOCYTES (test code = 1010) 28.6 % MONOCYTES (test code = 1011) 6.2 % EOSINOPHILS (test code = 1012) 0.8 % BASOPHILS (test code = 1013) 0.5 % IMMATURE GRANULOCYTES (test 0.3 % code = 1036) NUCLEATED RBCS (test code = 0.0 /100WBC'S 1065) PLATELET COUNT (test code = 236 K/UL 1015) ABSOLUTE NEUTROPHILS (test code 4.19 K/UL = 1066) ABSOLUTE LYMPHOCYTES (test code 1.88 K/UL = 1067) ABSOLUTE MONOCYTES (test code = 0.41 K/UL 1068) ABSOLUTE EOSINOPHILS (test code 0.05 K/UL = 1040) ABSOLUTE BASOPHILS (test code = 0.03 K/UL 1069) ABS IMMATURE GRANULOCYTES (test 0.02 K/UL code = 1020) ABS NUCLEATED RBCS (test code = 0.00 K/UL 54321) CBC W/AUTO [id number] 00:00:00 Test Item Value Reference Range Interpretation Comments WBC (test code = 1001) 6.6 K/UL RBC (test code = 1002) 4.61 M/UL HEMOGLOBIN (test code = 1003) 14.4 G/DL HEMATOCRIT (test code = 1004) 40.8 % MCV (test code = 1005) 88.5 fL MCH (test code = 1006) 31.2 PG MCHC (test code = 1007) 35.3 G/DL RDW (test code = 1038) 11.9 % NEUTROPHILS (test code = 1008) 63.6 % LYMPHOCYTES (test code = 1010) 28.6 % MONOCYTES (test code = 1011) 6.2 % EOSINOPHILS (test code = 1012) 0.8 % BASOPHILS (test code = 1013) 0.5 % IMMATURE GRANULOCYTES (test 0.3 % code = 1036) NUCLEATED RBCS (test code = 0.0 /100WBC'S 1065) PLATELET COUNT (test code = 236 K/UL 1015) ABSOLUTE NEUTROPHILS (test code 4.19 K/UL = 1066) ABSOLUTE LYMPHOCYTES (test code 1.88 K/UL = 1067) ABSOLUTE MONOCYTES (test code = 0.41 K/UL 1068) ABSOLUTE EOSINOPHILS (test code 0.05 K/UL = 1040) ABSOLUTE BASOPHILS (test code = 0.03 K/UL 1069) ABS IMMATURE GRANULOCYTES (test 0.02 K/UL code = 1020) ABS NUCLEATED RBCS (test code = 0.00 K/UL 65629) CBC W/AUTO [id number] 00:00:00 Test Item Value Reference Range Interpretation Comments WBC (test code = 1001) 6.6 K/UL RBC (test code = 1002) 4.61 M/UL HEMOGLOBIN (test code = 1003) 14.4 G/DL HEMATOCRIT (test code = 1004) 40.8 % MCV (test code = 1005) 88.5 fL MCH (test code = 1006) 31.2 PG MCHC (test code = 1007) 35.3 G/DL RDW (test code = 1038) 11.9 % NEUTROPHILS (test code = 1008) 63.6 % LYMPHOCYTES (test code = 1010) 28.6 % MONOCYTES (test code = 1011) 6.2 % EOSINOPHILS (test code = 1012) 0.8 % BASOPHILS (test code = 1013) 0.5 % IMMATURE GRANULOCYTES (test 0.3 % code = 1036) NUCLEATED RBCS (test code = 0.0 /100WBC'S 1065) PLATELET COUNT (test code = 236 K/UL 1015) ABSOLUTE NEUTROPHILS (test code 4.19 K/UL = 1066) ABSOLUTE LYMPHOCYTES (test code 1.88 K/UL = 1067) ABSOLUTE MONOCYTES (test code = 0.41 K/UL 1068) ABSOLUTE EOSINOPHILS (test code 0.05 K/UL = 1040) ABSOLUTE BASOPHILS (test code = 0.03 K/UL 1069) ABS IMMATURE GRANULOCYTES (test 0.02 K/UL code = 1020) ABS NUCLEATED RBCS (test code = 0.00 K/UL 58091) HEMOGLOBIN [id number] 00:00:00 Test Item Value Reference Range Interpretation Comments HEMOGLOBIN A1c (test code = 05306) 11.3 % HEMOGLOBIN [id number] 00:00:00 Test Item Value Reference Range Interpretation Comments HEMOGLOBIN A1c (test code = 76055) 11.3 % HEMOGLOBIN [id number] 00:00:00 Test Item Value Reference Range Interpretation Comments HEMOGLOBIN A1c (test code = 56753) 11.3 % LIPID [id number] 00:00:00 Test Item Value Reference Range Interpretation Comments CHOLESTEROL (test code = 2210) 243 MG/DL TRIGLYCERIDES (test code = 2232) 146 MG/DL HDL CHOLESTEROL (test code = 2220) 67 MG/DL CALC LDL CHOL (test code = 2237) 148 MG/DL RISK RATIO LDL/HDL (test code = 2.21 RATIO 2238) LIPID [id number] 00:00:00 Test Item Value Reference Range Interpretation Comments CHOLESTEROL (test code = 2210) 243 MG/DL TRIGLYCERIDES (test code = 2232) 146 MG/DL HDL CHOLESTEROL (test code = 2220) 67 MG/DL CALC LDL CHOL (test code = 2237) 148 MG/DL RISK RATIO LDL/HDL (test code = 2.21 RATIO 2238) COMPREHENSIVE METABOLIC [id number] 00:00:00 Test Item Value Reference Range Interpretation Comments GLUCOSE (test code = 2217) 217 MG/DL BUN (test code = 2208) 9 MG/DL CREATININE (test code = 2214) 0.50 MG/DL eGFR (2020 CKD-EPI) (test 110 ML/MIN/1.73 code = 53027) CALC BUN/CREAT (test code = 18 RATIO 2235) SODIUM (test code = 2231) 137 MEQ/L POTASSIUM (test code = 2228) 4.1 MEQ/L CHLORIDE (test code = 2215) 100 MEQ/L CARBON DIOXIDE (test code = 25 MEQ/L 2205) CALCIUM (test code = 2209) 10.1 MG/DL PROTEIN, TOTAL (test code = 7.3 G/DL 2228) ALBUMIN (test code = 2201) 4.8 G/DL CALC GLOBULIN (test code = 2.5 G/DL 2239) CALC A/G RATIO (test code = 1.9 RATIO 2234) BILIRUBIN, TOTAL (test code = 0.5 MG/DL 2207) ALKALINE PHOSPHATASE (test 164 U/L code = 2204) AST (test code = 2218) 15 U/L ALT (test code = 2219) 23 U/L COMPREHENSIVE METABOLIC [id number] 00:00:00 Test Item Value Reference Range Interpretation Comments GLUCOSE (test code = 2217) 217 MG/DL BUN (test code = 2208) 9 MG/DL CREATININE (test code = 2214) 0.50 MG/DL eGFR (2020 CKD-EPI) (test 110 ML/MIN/1.73 code = 60856) CALC BUN/CREAT (test code = 18 RATIO 2235) SODIUM (test code = 2231) 137 MEQ/L POTASSIUM (test code = 2228) 4.1 MEQ/L CHLORIDE (test code = 2215) 100 MEQ/L CARBON DIOXIDE (test code = 25 MEQ/L 2205) CALCIUM (test code = 2209) 10.1 MG/DL PROTEIN, TOTAL (test code = 7.3 G/DL 2228) ALBUMIN (test code = 2201) 4.8 G/DL CALC GLOBULIN (test code = 2.5 G/DL 2239) CALC A/G RATIO (test code = 1.9 RATIO 2233) BILIRUBIN, TOTAL (test code = 0.5 MG/DL 2206) ALKALINE PHOSPHATASE (test 164 U/L code = 2204) AST (test code = 2218) 15 U/L ALT (test code = 2219) 23 U/L CBC W/AUTO [id number] 00:00:00 Test Item Value Reference Range Interpretation Comments WBC (test code = 1001) 6.6 K/UL RBC (test code = 1002) 4.61 M/UL HEMOGLOBIN (test code = 1003) 14.4 G/DL HEMATOCRIT (test code = 1004) 40.8 % MCV (test code = 1005) 88.5 fL MCH (test code = 1006) 31.2 PG MCHC (test code = 1007) 35.3 G/DL RDW (test code = 1038) 11.9 % NEUTROPHILS (test code = 1008) 63.6 % LYMPHOCYTES (test code = 1010) 28.6 % MONOCYTES (test code = 1011) 6.2 % EOSINOPHILS (test code = 1012) 0.8 % BASOPHILS (test code = 1013) 0.5 % IMMATURE GRANULOCYTES (test 0.3 % code = 1036) NUCLEATED RBCS (test code = 0.0 /100WBC'S 1065) PLATELET COUNT (test code = 236 K/UL 1015) ABSOLUTE NEUTROPHILS (test code 4.19 K/UL = 1066) ABSOLUTE LYMPHOCYTES (test code 1.88 K/UL = 1067) ABSOLUTE MONOCYTES (test code = 0.41 K/UL 1068) ABSOLUTE EOSINOPHILS (test code 0.05 K/UL = 1040) ABSOLUTE BASOPHILS (test code = 0.03 K/UL 1069) ABS IMMATURE GRANULOCYTES (test 0.02 K/UL code = 1020) ABS NUCLEATED RBCS (test code = 0.00 K/UL 34908) CBC W/AUTO [id number] 00:00:00 Test Item Value Reference Range Interpretation Comments WBC (test code = 1001) 6.6 K/UL RBC (test code = 1002) 4.61 M/UL HEMOGLOBIN (test code = 1003) 14.4 G/DL HEMATOCRIT (test code = 1004) 40.8 % MCV (test code = 1005) 88.5 fL MCH (test code = 1006) 31.2 PG MCHC (test code = 1007) 35.3 G/DL RDW (test code = 1038) 11.9 % NEUTROPHILS (test code = 1008) 63.6 % LYMPHOCYTES (test code = 1010) 28.6 % MONOCYTES (test code = 1011) 6.2 % EOSINOPHILS (test code = 1012) 0.8 % BASOPHILS (test code = 1013) 0.5 % IMMATURE GRANULOCYTES (test 0.3 % code = 1036) NUCLEATED RBCS (test code = 0.0 /100WBC'S 1065) PLATELET COUNT (test code = 236 K/UL 1015) ABSOLUTE NEUTROPHILS (test code 4.19 K/UL = 1066) ABSOLUTE LYMPHOCYTES (test code 1.88 K/UL = 1067) ABSOLUTE MONOCYTES (test code = 0.41 K/UL 1068) ABSOLUTE EOSINOPHILS (test code 0.05 K/UL = 1040) ABSOLUTE BASOPHILS (test code = 0.03 K/UL 1069) ABS IMMATURE GRANULOCYTES (test 0.02 K/UL code = 1020) ABS NUCLEATED RBCS (test code = 0.00 K/UL 01978) CBC W/AUTO [id number] 00:00:00 Test Item Value Reference Range Interpretation Comments WBC (test code = 1001) 6.6 K/UL RBC (test code = 1002) 4.61 M/UL HEMOGLOBIN (test code = 1003) 14.4 G/DL HEMATOCRIT (test code = 1004) 40.8 % MCV (test code = 1005) 88.5 fL MCH (test code = 1006) 31.2 PG MCHC (test code = 1007) 35.3 G/DL RDW (test code = 1038) 11.9 % NEUTROPHILS (test code = 1008) 63.6 % LYMPHOCYTES (test code = 1010) 28.6 % MONOCYTES (test code = 1011) 6.2 % EOSINOPHILS (test code = 1012) 0.8 % BASOPHILS (test code = 1013) 0.5 % IMMATURE GRANULOCYTES (test 0.3 % code = 1036) NUCLEATED RBCS (test code = 0.0 /100WBC'S 1065) PLATELET COUNT (test code = 236 K/UL 1015) ABSOLUTE NEUTROPHILS (test code 4.19 K/UL = 1066) ABSOLUTE LYMPHOCYTES (test code 1.88 K/UL = 1067) ABSOLUTE MONOCYTES (test code = 0.41 K/UL 1068) ABSOLUTE EOSINOPHILS (test code 0.05 K/UL = 1040) ABSOLUTE BASOPHILS (test code = 0.03 K/UL 1069) ABS IMMATURE GRANULOCYTES (test 0.02 K/UL code = 1020) ABS NUCLEATED RBCS (test code = 0.00 K/UL 72638) HEMOGLOBIN [id number] 00:00:00 Test Item Value Reference Range Interpretation Comments HEMOGLOBIN A1c (test code = 00936) 11.3 % HEMOGLOBIN [id number] 00:00:00 Test Item Value Reference Range Interpretation Comments HEMOGLOBIN A1c (test code = 09795) 11.3 % HEMOGLOBIN [id number] 00:00:00 Test Item Value Reference Range Interpretation Comments HEMOGLOBIN A1c (test code = 78083) 11.3 % LIPID [id number] 00:00:00 Test Item Value Reference Range Interpretation Comments CHOLESTEROL (test code = 2210) 243 MG/DL TRIGLYCERIDES (test code = 2232) 146 MG/DL HDL CHOLESTEROL (test code = 2220) 67 MG/DL CALC LDL CHOL (test code = 2237) 148 MG/DL RISK RATIO LDL/HDL (test code = 2.21 RATIO 2238) LIPID [id number] 00:00:00 Test Item Value Reference Range Interpretation Comments CHOLESTEROL (test code = 2210) 243 MG/DL TRIGLYCERIDES (test code = 2232) 146 MG/DL HDL CHOLESTEROL (test code = 2220) 67 MG/DL CALC LDL CHOL (test code = 2237) 148 MG/DL RISK RATIO LDL/HDL (test code = 2.21 RATIO 2238) COMPREHENSIVE METABOLIC [id number] 00:00:00 Test Item Value Reference Range Interpretation Comments GLUCOSE (test code = 2217) 217 MG/DL BUN (test code = 2208) 9 MG/DL CREATININE (test code = 2214) 0.50 MG/DL eGFR (2020 CKD-EPI) (test 110 ML/MIN/1.73 code = 01545) CALC BUN/CREAT (test code = 18 RATIO 2235) SODIUM (test code = 2231) 137 MEQ/L POTASSIUM (test code = 2228) 4.1 MEQ/L CHLORIDE (test code = 2215) 100 MEQ/L CARBON DIOXIDE (test code = 25 MEQ/L 2205) CALCIUM (test code = 2209) 10.1 MG/DL PROTEIN, TOTAL (test code = 7.3 G/DL 2228) ALBUMIN (test code = 2201) 4.8 G/DL CALC GLOBULIN (test code = 2.5 G/DL 2240) CALC A/G RATIO (test code = 1.9 RATIO 2234) BILIRUBIN, TOTAL (test code = 0.5 MG/DL 2206) ALKALINE PHOSPHATASE (test 164 U/L code = 2204) AST (test code = 2218) 15 U/L ALT (test code = 2219) 23 U/L COMPREHENSIVE METABOLIC [id number] 00:00:00 Test Item Value Reference Range Interpretation Comments GLUCOSE (test code = 2217) 217 MG/DL BUN (test code = 2208) 9 MG/DL CREATININE (test code = 2214) 0.50 MG/DL eGFR (2020 CKD-EPI) (test 110 ML/MIN/1.73 code = 00382) CALC BUN/CREAT (test code = 18 RATIO 2235) SODIUM (test code = 2231) 137 MEQ/L POTASSIUM (test code = 2228) 4.1 MEQ/L CHLORIDE (test code = 2215) 100 MEQ/L CARBON DIOXIDE (test code = 25 MEQ/L 2205) CALCIUM (test code = 2209) 10.1 MG/DL PROTEIN, TOTAL (test code = 7.3 G/DL 2228) ALBUMIN (test code = 2201) 4.8 G/DL CALC GLOBULIN (test code = 2.5 G/DL 2240) CALC A/G RATIO (test code = 1.9 RATIO 2233) BILIRUBIN, TOTAL (test code = 0.5 MG/DL 2206) ALKALINE PHOSPHATASE (test 164 U/L code = 2204) AST (test code = 2218) 15 U/L ALT (test code = 2219) 23 U/L CBC W/AUTO [id number] 00:00:00 Test Item Value Reference Range Interpretation Comments WBC (test code = 1001) 6.6 K/UL RBC (test code = 1002) 4.61 M/UL HEMOGLOBIN (test code = 1003) 14.4 G/DL HEMATOCRIT (test code = 1004) 40.8 % MCV (test code = 1005) 88.5 fL MCH (test code = 1006) 31.2 PG MCHC (test code = 1007) 35.3 G/DL RDW (test code = 1038) 11.9 % NEUTROPHILS (test code = 1008) 63.6 % LYMPHOCYTES (test code = 1010) 28.6 % MONOCYTES (test code = 1011) 6.2 % EOSINOPHILS (test code = 1012) 0.8 % BASOPHILS (test code = 1013) 0.5 % IMMATURE GRANULOCYTES (test 0.3 % code = 1036) NUCLEATED RBCS (test code = 0.0 /100WBC'S 1065) PLATELET COUNT (test code = 236 K/UL 1015) ABSOLUTE NEUTROPHILS (test code 4.19 K/UL = 1066) ABSOLUTE LYMPHOCYTES (test code 1.88 K/UL = 1067) ABSOLUTE MONOCYTES (test code = 0.41 K/UL 1068) ABSOLUTE EOSINOPHILS (test code 0.05 K/UL = 1040) ABSOLUTE BASOPHILS (test code = 0.03 K/UL 1069) ABS IMMATURE GRANULOCYTES (test 0.02 K/UL code = 1020) ABS NUCLEATED RBCS (test code = 0.00 K/UL 07714) CBC W/AUTO [id number] 00:00:00 Test Item Value Reference Range Interpretation Comments WBC (test code = 1001) 6.6 K/UL RBC (test code = 1002) 4.61 M/UL HEMOGLOBIN (test code = 1003) 14.4 G/DL HEMATOCRIT (test code = 1004) 40.8 % MCV (test code = 1005) 88.5 fL MCH (test code = 1006) 31.2 PG MCHC (test code = 1007) 35.3 G/DL RDW (test code = 1038) 11.9 % NEUTROPHILS (test code = 1008) 63.6 % LYMPHOCYTES (test code = 1010) 28.6 % MONOCYTES (test code = 1011) 6.2 % EOSINOPHILS (test code = 1012) 0.8 % BASOPHILS (test code = 1013) 0.5 % IMMATURE GRANULOCYTES (test 0.3 % code = 1036) NUCLEATED RBCS (test code = 0.0 /100WBC'S 1065) PLATELET COUNT (test code = 236 K/UL 1015) ABSOLUTE NEUTROPHILS (test code 4.19 K/UL = 1066) ABSOLUTE LYMPHOCYTES (test code 1.88 K/UL = 1067) ABSOLUTE MONOCYTES (test code = 0.41 K/UL 1068) ABSOLUTE EOSINOPHILS (test code 0.05 K/UL = 1040) ABSOLUTE BASOPHILS (test code = 0.03 K/UL 1069) ABS IMMATURE GRANULOCYTES (test 0.02 K/UL code = 1020) ABS NUCLEATED RBCS (test code = 0.00 K/UL 16783) CBC W/AUTO [id number] 00:00:00 Test Item Value Reference Range Interpretation Comments WBC (test code = 1001) 6.6 K/UL RBC (test code = 1002) 4.61 M/UL HEMOGLOBIN (test code = 1003) 14.4 G/DL HEMATOCRIT (test code = 1004) 40.8 % MCV (test code = 1005) 88.5 fL MCH (test code = 1006) 31.2 PG MCHC (test code = 1007) 35.3 G/DL RDW (test code = 1038) 11.9 % NEUTROPHILS (test code = 1008) 63.6 % LYMPHOCYTES (test code = 1010) 28.6 % MONOCYTES (test code = 1011) 6.2 % EOSINOPHILS (test code = 1012) 0.8 % BASOPHILS (test code = 1013) 0.5 % IMMATURE GRANULOCYTES (test 0.3 % code = 1036) NUCLEATED RBCS (test code = 0.0 /100WBC'S 1065) PLATELET COUNT (test code = 236 K/UL 1015) ABSOLUTE NEUTROPHILS (test code 4.19 K/UL = 1066) ABSOLUTE LYMPHOCYTES (test code 1.88 K/UL = 1067) ABSOLUTE MONOCYTES (test code = 0.41 K/UL 1068) ABSOLUTE EOSINOPHILS (test code 0.05 K/UL = 1040) ABSOLUTE BASOPHILS (test code = 0.03 K/UL 1069) ABS IMMATURE GRANULOCYTES (test 0.02 K/UL code = 1020) ABS NUCLEATED RBCS (test code = 0.00 K/UL 75897) CBC W/AUTO [id number] 00:00:00 Test Item Value Reference Range Interpretation Comments WBC (test code = 1001) 6.6 K/UL RBC (test code = 1002) 4.61 M/UL HEMOGLOBIN (test code = 1003) 14.4 G/DL HEMATOCRIT (test code = 1004) 40.8 % MCV (test code = 1005) 88.5 fL MCH (test code = 1006) 31.2 PG MCHC (test code = 1007) 35.3 G/DL RDW (test code = 1038) 11.9 % NEUTROPHILS (test code = 1008) 63.6 % LYMPHOCYTES (test code = 1010) 28.6 % MONOCYTES (test code = 1011) 6.2 % EOSINOPHILS (test code = 1012) 0.8 % BASOPHILS (test code = 1013) 0.5 % IMMATURE GRANULOCYTES (test 0.3 % code = 1036) NUCLEATED RBCS (test code = 0.0 /100WBC'S 1065) PLATELET COUNT (test code = 236 K/UL 1015) ABSOLUTE NEUTROPHILS (test code 4.19 K/UL = 1066) ABSOLUTE LYMPHOCYTES (test code 1.88 K/UL = 1067) ABSOLUTE MONOCYTES (test code = 0.41 K/UL 1068) ABSOLUTE EOSINOPHILS (test code 0.05 K/UL = 1040) ABSOLUTE BASOPHILS (test code = 0.03 K/UL 1069) ABS IMMATURE GRANULOCYTES (test 0.02 K/UL code = 1020) ABS NUCLEATED RBCS (test code = 0.00 K/UL 66874) CBC W/AUTO [id number] 00:00:00 Test Item Value Reference Range Interpretation Comments WBC (test code = 1001) 6.6 K/UL RBC (test code = 1002) 4.61 M/UL HEMOGLOBIN (test code = 1003) 14.4 G/DL HEMATOCRIT (test code = 1004) 40.8 % MCV (test code = 1005) 88.5 fL MCH (test code = 1006) 31.2 PG MCHC (test code = 1007) 35.3 G/DL RDW (test code = 1038) 11.9 % NEUTROPHILS (test code = 1008) 63.6 % LYMPHOCYTES (test code = 1010) 28.6 % MONOCYTES (test code = 1011) 6.2 % EOSINOPHILS (test code = 1012) 0.8 % BASOPHILS (test code = 1013) 0.5 % IMMATURE GRANULOCYTES (test 0.3 % code = 1036) NUCLEATED RBCS (test code = 0.0 /100WBC'S 1065) PLATELET COUNT (test code = 236 K/UL 1015) ABSOLUTE NEUTROPHILS (test code 4.19 K/UL = 1066) ABSOLUTE LYMPHOCYTES (test code 1.88 K/UL = 1067) ABSOLUTE MONOCYTES (test code = 0.41 K/UL 1068) ABSOLUTE EOSINOPHILS (test code 0.05 K/UL = 1040) ABSOLUTE BASOPHILS (test code = 0.03 K/UL 1069) ABS IMMATURE GRANULOCYTES (test 0.02 K/UL code = 1020) ABS NUCLEATED RBCS (test code = 0.00 K/UL 88832) HEMOGLOBIN [id number] 00:00:00 Test Item Value Reference Range Interpretation Comments HEMOGLOBIN A1c (test code = 11025) 11.3 % HEMOGLOBIN [id number] 00:00:00 Test Item Value Reference Range Interpretation Comments HEMOGLOBIN A1c (test code = 47655) 11.3 % HEMOGLOBIN [id number] 00:00:00 Test Item Value Reference Range Interpretation Comments HEMOGLOBIN A1c (test code = 95802) 11.3 % CBC W/AUTO [id number] 00:00:00 Test Item Value Reference Range Interpretation Comments WBC (test code = 1001) 6.6 K/UL RBC (test code = 1002) 4.61 M/UL HEMOGLOBIN (test code = 1003) 14.4 G/DL HEMATOCRIT (test code = 1004) 40.8 % MCV (test code = 1005) 88.5 fL MCH (test code = 1006) 31.2 PG MCHC (test code = 1007) 35.3 G/DL RDW (test code = 1038) 11.9 % NEUTROPHILS (test code = 1008) 63.6 % LYMPHOCYTES (test code = 1010) 28.6 % MONOCYTES (test code = 1011) 6.2 % EOSINOPHILS (test code = 1012) 0.8 % BASOPHILS (test code = 1013) 0.5 % IMMATURE GRANULOCYTES (test 0.3 % code = 1036) NUCLEATED RBCS (test code = 0.0 /100WBC'S 1065) PLATELET COUNT (test code = 236 K/UL 1015) ABSOLUTE NEUTROPHILS (test code 4.19 K/UL = 1066) ABSOLUTE LYMPHOCYTES (test code 1.88 K/UL = 1067) ABSOLUTE MONOCYTES (test code = 0.41 K/UL 1068) ABSOLUTE EOSINOPHILS (test code 0.05 K/UL = 1040) ABSOLUTE BASOPHILS (test code = 0.03 K/UL 1069) ABS IMMATURE GRANULOCYTES (test 0.02 K/UL code = 1020) ABS NUCLEATED RBCS (test code = 0.00 K/UL 26390) LIPID [id number] 00:00:00 Test Item Value Reference Range Interpretation Comments CHOLESTEROL (test code = 2210) 243 MG/DL TRIGLYCERIDES (test code = 2232) 146 MG/DL HDL CHOLESTEROL (test code = 2220) 67 MG/DL CALC LDL CHOL (test code = 2237) 148 MG/DL RISK RATIO LDL/HDL (test code = 2.21 RATIO 2238) LIPID [id number] 00:00:00 Test Item Value Reference Range Interpretation Comments CHOLESTEROL (test code = 2210) 243 MG/DL TRIGLYCERIDES (test code = 2232) 146 MG/DL HDL CHOLESTEROL (test code = 2220) 67 MG/DL CALC LDL CHOL (test code = 2237) 148 MG/DL RISK RATIO LDL/HDL (test code = 2.21 RATIO 2238) COMPREHENSIVE METABOLIC [id number] 00:00:00 Test Item Value Reference Range Interpretation Comments GLUCOSE (test code = 2217) 217 MG/DL BUN (test code = 2208) 9 MG/DL CREATININE (test code = 2214) 0.50 MG/DL eGFR (2020 CKD-EPI) (test 110 ML/MIN/1.73 code = 11364) CALC BUN/CREAT (test code = 18 RATIO 2235) SODIUM (test code = 2231) 137 MEQ/L POTASSIUM (test code = 2228) 4.1 MEQ/L CHLORIDE (test code = 2215) 100 MEQ/L CARBON DIOXIDE (test code = 25 MEQ/L 2206) CALCIUM (test code = 2209) 10.1 MG/DL PROTEIN, TOTAL (test code = 7.3 G/DL 222) ALBUMIN (test code = 2201) 4.8 G/DL CALC GLOBULIN (test code = 2.5 G/DL 2240) CALC A/G RATIO (test code = 1.9 RATIO 2234) BILIRUBIN, TOTAL (test code = 0.5 MG/DL 2206) ALKALINE PHOSPHATASE (test 164 U/L code = 2204) AST (test code = 2218) 15 U/L ALT (test code = 2219) 23 U/L COMPREHENSIVE METABOLIC [id number] 00:00:00 Test Item Value Reference Range Interpretation Comments GLUCOSE (test code = 2217) 217 MG/DL BUN (test code = 2208) 9 MG/DL CREATININE (test code = 2214) 0.50 MG/DL eGFR (2020 CKD-EPI) (test 110 ML/MIN/1.73 code = 73607) CALC BUN/CREAT (test code = 18 RATIO 2235) SODIUM (test code = 2231) 137 MEQ/L POTASSIUM (test code = 2228) 4.1 MEQ/L CHLORIDE (test code = 2215) 100 MEQ/L CARBON DIOXIDE (test code = 25 MEQ/L 2205) CALCIUM (test code = 2209) 10.1 MG/DL PROTEIN, TOTAL (test code = 7.3 G/DL 2229) ALBUMIN (test code = 2201) 4.8 G/DL CALC GLOBULIN (test code = 2.5 G/DL 2240) CALC A/G RATIO (test code = 1.9 RATIO 2234) BILIRUBIN, TOTAL (test code = 0.5 MG/DL 2206) ALKALINE PHOSPHATASE (test 164 U/L code = 2204) AST (test code = 2218) 15 U/L ALT (test code = 2219) 23 U/L HEMOGLOBIN [id number] 00:00:00 Test Item Value Reference Range Interpretation Comments HEMOGLOBIN A1c (test code = 72430) 11.3 % HEMOGLOBIN [id number] 00:00:00 Test Item Value Reference Range Interpretation Comments HEMOGLOBIN A1c (test code = 02923) 11.3 % HEMOGLOBIN [id number] 00:00:00 Test Item Value Reference Range Interpretation Comments HEMOGLOBIN A1c (test code = 38515) 11.3 % LIPID [id number] 00:00:00 Test Item Value Reference Range Interpretation Comments CHOLESTEROL (test code = 2210) 243 MG/DL TRIGLYCERIDES (test code = 2232) 146 MG/DL HDL CHOLESTEROL (test code = 2220) 67 MG/DL CALC LDL CHOL (test code = 2237) 148 MG/DL RISK RATIO LDL/HDL (test code = 2.21 RATIO 2238) LIPID [id number] 00:00:00 Test Item Value Reference Range Interpretation Comments CHOLESTEROL (test code = 2210) 243 MG/DL TRIGLYCERIDES (test code = 2232) 146 MG/DL HDL CHOLESTEROL (test code = 2220) 67 MG/DL CALC LDL CHOL (test code = 2237) 148 MG/DL RISK RATIO LDL/HDL (test code = 2.21 RATIO 2238) COMPREHENSIVE METABOLIC [id number] 00:00:00 Test Item Value Reference Range Interpretation Comments GLUCOSE (test code = 2217) 217 MG/DL BUN (test code = 2208) 9 MG/DL CREATININE (test code = 2214) 0.50 MG/DL eGFR (2020 CKD-EPI) (test 110 ML/MIN/1.73 code = 89149) CALC BUN/CREAT (test code = 18 RATIO 2235) SODIUM (test code = 2231) 137 MEQ/L POTASSIUM (test code = 2228) 4.1 MEQ/L CHLORIDE (test code = 2215) 100 MEQ/L CARBON DIOXIDE (test code = 25 MEQ/L 2205) CALCIUM (test code = 2209) 10.1 MG/DL PROTEIN, TOTAL (test code = 7.3 G/DL 2228) ALBUMIN (test code = 2201) 4.8 G/DL CALC GLOBULIN (test code = 2.5 G/DL 2239) CALC A/G RATIO (test code = 1.9 RATIO 2234) BILIRUBIN, TOTAL (test code = 0.5 MG/DL 2207) ALKALINE PHOSPHATASE (test 164 U/L code = 2204) AST (test code = 2218) 15 U/L ALT (test code = 2219) 23 U/L COMPREHENSIVE METABOLIC [id number] 00:00:00 Test Item Value Reference Range Interpretation Comments GLUCOSE (test code = 2217) 217 MG/DL BUN (test code = 2208) 9 MG/DL CREATININE (test code = 2214) 0.50 MG/DL eGFR (2020 CKD-EPI) (test 110 ML/MIN/1.73 code = 33488) CALC BUN/CREAT (test code = 18 RATIO 2235) SODIUM (test code = 2231) 137 MEQ/L POTASSIUM (test code = 2228) 4.1 MEQ/L CHLORIDE (test code = 2215) 100 MEQ/L CARBON DIOXIDE (test code = 25 MEQ/L 2205) CALCIUM (test code = 2209) 10.1 MG/DL PROTEIN, TOTAL (test code = 7.3 G/DL 2228) ALBUMIN (test code = 2201) 4.8 G/DL CALC GLOBULIN (test code = 2.5 G/DL 2239) CALC A/G RATIO (test code = 1.9 RATIO 2234) BILIRUBIN, TOTAL (test code = 0.5 MG/DL 2206) ALKALINE PHOSPHATASE (test 164 U/L code = 2204) AST (test code = 2218) 15 U/L ALT (test code = 2219) 23 U/L LIPID PANEL [ADDED]2021-04-22 00:00:00 Test Item Value Reference Range Interpretation Comments CHOLESTEROL (test code = 2210) 344 MG/DL TRIGLYCERIDES (test code = 2232) 394 MG/DL HDL CHOLESTEROL (test code = 2220) 61 MG/DL CALC LDL CHOL (test code = 2237) 216 MG/DL RISK RATIO LDL/HDL (test code = 3.54 RATIO 2238) LIPID PANEL [ADDED]2021-04-22 00:00:00 Test Item Value Reference Range Interpretation Comments CHOLESTEROL (test code = 2210) 344 MG/DL TRIGLYCERIDES (test code = 2232) 394 MG/DL HDL CHOLESTEROL (test code = 2220) 61 MG/DL CALC LDL CHOL (test code = 2237) 216 MG/DL RISK RATIO LDL/HDL (test code = 3.54 RATIO 2238) NOTE: [ADDED]2021-04-22 00:00:00 Test Item Value Reference Range Interpretation Comments NOTE: (test code = 998) (NOTE) LIPID PANEL [ADDED]2021-04-22 00:00:00 Test Item Value Reference Range Interpretation Comments CHOLESTEROL (test code = 2210) 344 MG/DL TRIGLYCERIDES (test code = 2232) 394 MG/DL HDL CHOLESTEROL (test code = 2220) 61 MG/DL CALC LDL CHOL (test code = 2237) 216 MG/DL RISK RATIO LDL/HDL (test code = 3.54 RATIO 2238) LIPID PANEL [ADDED]2021-04-22 00:00:00 Test Item Value Reference Range Interpretation Comments CHOLESTEROL (test code = 2210) 344 MG/DL TRIGLYCERIDES (test code = 2232) 394 MG/DL HDL CHOLESTEROL (test code = 2220) 61 MG/DL CALC LDL CHOL (test code = 2237) 216 MG/DL RISK RATIO LDL/HDL (test code = 3.54 RATIO 2238) NOTE: [ADDED]2021-04-22 00:00:00 Test Item Value Reference Range Interpretation Comments NOTE: (test code = 998) (NOTE) LIPID PANEL [ADDED]2021-04-22 00:00:00 Test Item Value Reference Range Interpretation Comments CHOLESTEROL (test code = 2210) 344 MG/DL TRIGLYCERIDES (test code = 2232) 394 MG/DL HDL CHOLESTEROL (test code = 2220) 61 MG/DL CALC LDL CHOL (test code = 2237) 216 MG/DL RISK RATIO LDL/HDL (test code = 3.54 RATIO 2238) LIPID PANEL [ADDED]2021-04-22 00:00:00 Test Item Value Reference Range Interpretation Comments CHOLESTEROL (test code = 2210) 344 MG/DL TRIGLYCERIDES (test code = 2232) 394 MG/DL HDL CHOLESTEROL (test code = 2220) 61 MG/DL CALC LDL CHOL (test code = 2237) 216 MG/DL RISK RATIO LDL/HDL (test code = 3.54 RATIO 2238) LIPID PANEL [ADDED]2021-04-22 00:00:00 Test Item Value Reference Range Interpretation Comments CHOLESTEROL (test code = 2210) 344 MG/DL TRIGLYCERIDES (test code = 2232) 394 MG/DL HDL CHOLESTEROL (test code = 2220) 61 MG/DL CALC LDL CHOL (test code = 2237) 216 MG/DL RISK RATIO LDL/HDL (test code = 3.54 RATIO 2238) NOTE: [ADDED]2021-04-22 00:00:00 Test Item Value Reference Range Interpretation Comments NOTE: (test code = 998) (NOTE) LIPID PANEL [ADDED]2021-04-22 00:00:00 Test Item Value Reference Range Interpretation Comments CHOLESTEROL (test code = 2210) 344 MG/DL TRIGLYCERIDES (test code = 2232) 394 MG/DL HDL CHOLESTEROL (test code = 2220) 61 MG/DL CALC LDL CHOL (test code = 2237) 216 MG/DL RISK RATIO LDL/HDL (test code = 3.54 RATIO 2238) NOTE: [ADDED]2021-04-22 00:00:00 Test Item Value Reference Range Interpretation Comments NOTE: (test code = 998) (NOTE) COMPREHENSIVE METABOLIC [id number] 00:00:00 Test Item Value Reference Range Interpretation Comments GLUCOSE (test code = 2217) 334 MG/DL BUN (test code = 2208) 11 MG/DL CREATININE (test code = 2214) 0.61 MG/DL eGFR AMER. (test code 118 ML/MIN/1.73 = 88258) eGFR NON- AMER. (test 102 ML/MIN/1.73 code = 27304) CALC BUN/CREAT (test code = 18 RATIO 2235) SODIUM (test code = 2231) 136 MEQ/L POTASSIUM (test code = 2228) 4.2 MEQ/L CHLORIDE (test code = 2215) 98 MEQ/L CARBON DIOXIDE (test code = 25 MEQ/L 2205) CALCIUM (test code = 2209) 9.5 MG/DL PROTEIN, TOTAL (test code = 7.2 G/DL 2228) ALBUMIN (test code = 2201) 4.3 G/DL CALC GLOBULIN (test code = 2.9 G/DL 2240) CALC A/G RATIO (test code = 1.5 RATIO 2234) BILIRUBIN, TOTAL (test code = 0.4 MG/DL 2206) ALKALINE PHOSPHATASE (test 141 U/L code = 2204) AST (test code = 2218) 16 U/L ALT (test code = 2219) 16 U/L COMPREHENSIVE METABOLIC [id number] 00:00:00 Test Item Value Reference Range Interpretation Comments GLUCOSE (test code = 2217) 334 MG/DL BUN (test code = 2208) 11 MG/DL CREATININE (test code = 2214) 0.61 MG/DL eGFR AMER. (test code 118 ML/MIN/1.73 = 94562) eGFR NON- AMER. (test 102 ML/MIN/1.73 code = 60849) CALC BUN/CREAT (test code = 18 RATIO 2235) SODIUM (test code = 2231) 136 MEQ/L POTASSIUM (test code = 2228) 4.2 MEQ/L CHLORIDE (test code = 2215) 98 MEQ/L CARBON DIOXIDE (test code = 25 MEQ/L 2205) CALCIUM (test code = 2209) 9.5 MG/DL PROTEIN, TOTAL (test code = 7.2 G/DL 2228) ALBUMIN (test code = 220) 4.3 G/DL CALC GLOBULIN (test code = 2.9 G/DL 2239) CALC A/G RATIO (test code = 1.5 RATIO 2233) BILIRUBIN, TOTAL (test code = 0.4 MG/DL 2206) ALKALINE PHOSPHATASE (test 141 U/L code = 2204) AST (test code = 2218) 16 U/L ALT (test code = 2219) 16 U/L HEMOGLOBIN [id number] 00:00:00 Test Item Value Reference Range Interpretation Comments HEMOGLOBIN A1c (test code = 18576) 11.2 % HEMOGLOBIN [id number] 00:00:00 Test Item Value Reference Range Interpretation Comments HEMOGLOBIN A1c (test code = 46766) 11.2 % HEMOGLOBIN [id number] 00:00:00 Test Item Value Reference Range Interpretation Comments HEMOGLOBIN A1c (test code = 65408) 11.2 % COMPREHENSIVE METABOLIC [id number] 00:00:00 Test Item Value Reference Range Interpretation Comments GLUCOSE (test code = 2217) 334 MG/DL BUN (test code = 2208) 11 MG/DL CREATININE (test code = 2214) 0.61 MG/DL eGFR AMER. (test code 118 ML/MIN/1.73 = 84446) eGFR NON- AMER. (test 102 ML/MIN/1.73 code = 40410) CALC BUN/CREAT (test code = 18 RATIO 2235) SODIUM (test code = 2231) 136 MEQ/L POTASSIUM (test code = 2228) 4.2 MEQ/L CHLORIDE (test code = 2215) 98 MEQ/L CARBON DIOXIDE (test code = 25 MEQ/L 220) CALCIUM (test code = 2209) 9.5 MG/DL PROTEIN, TOTAL (test code = 7.2 G/DL 222) ALBUMIN (test code = 2201) 4.3 G/DL CALC GLOBULIN (test code = 2.9 G/DL 2240) CALC A/G RATIO (test code = 1.5 RATIO 2234) BILIRUBIN, TOTAL (test code = 0.4 MG/DL 2206) ALKALINE PHOSPHATASE (test 141 U/L code = 2204) AST (test code = 2218) 16 U/L ALT (test code = 2219) 16 U/L COMPREHENSIVE METABOLIC [id number] 00:00:00 Test Item Value Reference Range Interpretation Comments GLUCOSE (test code = 2217) 334 MG/DL BUN (test code = 2208) 11 MG/DL CREATININE (test code = 2214) 0.61 MG/DL eGFR AMER. (test code 118 ML/MIN/1.73 = 38037) eGFR NON- AMER. (test 102 ML/MIN/1.73 code = 68437) CALC BUN/CREAT (test code = 18 RATIO 2235) SODIUM (test code = 2231) 136 MEQ/L POTASSIUM (test code = 2228) 4.2 MEQ/L CHLORIDE (test code = 2215) 98 MEQ/L CARBON DIOXIDE (test code = 25 MEQ/L 2205) CALCIUM (test code = 2209) 9.5 MG/DL PROTEIN, TOTAL (test code = 7.2 G/DL 2228) ALBUMIN (test code = 2201) 4.3 G/DL CALC GLOBULIN (test code = 2.9 G/DL 2240) CALC A/G RATIO (test code = 1.5 RATIO 2234) BILIRUBIN, TOTAL (test code = 0.4 MG/DL 7) ALKALINE PHOSPHATASE (test 141 U/L code = 2204) AST (test code = 2218) 16 U/L ALT (test code = 2219) 16 U/L HEMOGLOBIN [id number] 00:00:00 Test Item Value Reference Range Interpretation Comments HEMOGLOBIN A1c (test code = 21047) 11.2 % HEMOGLOBIN [id number] 00:00:00 Test Item Value Reference Range Interpretation Comments HEMOGLOBIN A1c (test code = 63598) 11.2 % HEMOGLOBIN [id number] 00:00:00 Test Item Value Reference Range Interpretation Comments HEMOGLOBIN A1c (test code = 37939) 11.2 % COMPREHENSIVE METABOLIC [id number] 00:00:00 Test Item Value Reference Range Interpretation Comments GLUCOSE (test code = 2217) 334 MG/DL BUN (test code = 2208) 11 MG/DL CREATININE (test code = 2214) 0.61 MG/DL eGFR AMER. (test code 118 ML/MIN/1.73 = 09079) eGFR NON- AMER. (test 102 ML/MIN/1.73 code = 41329) CALC BUN/CREAT (test code = 18 RATIO 2235) SODIUM (test code = 2231) 136 MEQ/L POTASSIUM (test code = 2228) 4.2 MEQ/L CHLORIDE (test code = 2215) 98 MEQ/L CARBON DIOXIDE (test code = 25 MEQ/L 220) CALCIUM (test code = 2209) 9.5 MG/DL PROTEIN, TOTAL (test code = 7.2 G/DL 2228) ALBUMIN (test code = 2201) 4.3 G/DL CALC GLOBULIN (test code = 2.9 G/DL 0) CALC A/G RATIO (test code = 1.5 RATIO 4) BILIRUBIN, TOTAL (test code = 0.4 MG/DL 2206) ALKALINE PHOSPHATASE (test 141 U/L code = 2204) AST (test code = 2218) 16 U/L ALT (test code = 2219) 16 U/L COMPREHENSIVE METABOLIC [id number] 00:00:00 Test Item Value Reference Range Interpretation Comments GLUCOSE (test code = 2217) 334 MG/DL BUN (test code = 2208) 11 MG/DL CREATININE (test code = 2214) 0.61 MG/DL eGFR AMER. (test code 118 ML/MIN/1.73 = 98590) eGFR NON- AMER. (test 102 ML/MIN/1.73 code = 81625) CALC BUN/CREAT (test code = 18 RATIO 2235) SODIUM (test code = 2231) 136 MEQ/L POTASSIUM (test code = 2228) 4.2 MEQ/L CHLORIDE (test code = 2215) 98 MEQ/L CARBON DIOXIDE (test code = 25 MEQ/L 2206) CALCIUM (test code = 2209) 9.5 MG/DL PROTEIN, TOTAL (test code = 7.2 G/DL 222) ALBUMIN (test code = 2201) 4.3 G/DL CALC GLOBULIN (test code = 2.9 G/DL 2240) CALC A/G RATIO (test code = 1.5 RATIO 2234) BILIRUBIN, TOTAL (test code = 0.4 MG/DL 2207) ALKALINE PHOSPHATASE (test 141 U/L code = 2204) AST (test code = 2218) 16 U/L ALT (test code = 2219) 16 U/L COMPREHENSIVE METABOLIC [id number] 00:00:00 Test Item Value Reference Range Interpretation Comments GLUCOSE (test code = 2217) 334 MG/DL BUN (test code = 2208) 11 MG/DL CREATININE (test code = 2214) 0.61 MG/DL eGFR AMER. (test code 118 ML/MIN/1.73 = 74570) eGFR NON- AMER. (test 102 ML/MIN/1.73 code = 50235) CALC BUN/CREAT (test code = 18 RATIO 2235) SODIUM (test code = 2231) 136 MEQ/L POTASSIUM (test code = 2228) 4.2 MEQ/L CHLORIDE (test code = 2215) 98 MEQ/L CARBON DIOXIDE (test code = 25 MEQ/L 2205) CALCIUM (test code = 2209) 9.5 MG/DL PROTEIN, TOTAL (test code = 7.2 G/DL 2228) ALBUMIN (test code = 2201) 4.3 G/DL CALC GLOBULIN (test code = 2.9 G/DL 2240) CALC A/G RATIO (test code = 1.5 RATIO 2234) BILIRUBIN, TOTAL (test code = 0.4 MG/DL 7) ALKALINE PHOSPHATASE (test 141 U/L code = 2204) AST (test code = 2218) 16 U/L ALT (test code = 2219) 16 U/L COMPREHENSIVE METABOLIC [id number] 00:00:00 Test Item Value Reference Range Interpretation Comments GLUCOSE (test code = 2217) 334 MG/DL BUN (test code = 2208) 11 MG/DL CREATININE (test code = 2214) 0.61 MG/DL eGFR AMER. (test code 118 ML/MIN/1.73 = 17547) eGFR NON- AMER. (test 102 ML/MIN/1.73 code = 11308) CALC BUN/CREAT (test code = 18 RATIO 2235) SODIUM (test code = 2231) 136 MEQ/L POTASSIUM (test code = 2228) 4.2 MEQ/L CHLORIDE (test code = 2215) 98 MEQ/L CARBON DIOXIDE (test code = 25 MEQ/L 2205) CALCIUM (test code = 2209) 9.5 MG/DL PROTEIN, TOTAL (test code = 7.2 G/DL 2228) ALBUMIN (test code = 2201) 4.3 G/DL CALC GLOBULIN (test code = 2.9 G/DL 2239) CALC A/G RATIO (test code = 1.5 RATIO 2233) BILIRUBIN, TOTAL (test code = 0.4 MG/DL 2206) ALKALINE PHOSPHATASE (test 141 U/L code = 2204) AST (test code = 2218) 16 U/L ALT (test code = 2219) 16 U/L HEMOGLOBIN [id number] 00:00:00 Test Item Value Reference Range Interpretation Comments HEMOGLOBIN A1c (test code = 66974) 11.2 % HEMOGLOBIN [id number] 00:00:00 Test Item Value Reference Range Interpretation Comments HEMOGLOBIN A1c (test code = 02096) 11.2 % HEMOGLOBIN [id number] 00:00:00 Test Item Value Reference Range Interpretation Comments HEMOGLOBIN A1c (test code = 49010) 11.2 % HEMOGLOBIN [id number] 00:00:00 Test Item Value Reference Range Interpretation Comments HEMOGLOBIN A1c (test code = 54024) 11.2 % HEMOGLOBIN [id number] 00:00:00 Test Item Value Reference Range Interpretation Comments HEMOGLOBIN A1c (test code = 62259) 11.2 % HEMOGLOBIN [id number] 00:00:00 Test Item Value Reference Range Interpretation Comments HEMOGLOBIN A1c (test code = 94699) 11.2 % COMPREHENSIVE METABOLIC [id number] 00:00:00 Test Item Value Reference Range Interpretation Comments GLUCOSE (test code = 2217) 129 MG/DL BUN (test code = 2208) 11 MG/DL CREATININE (test code = 2214) 0.79 MG/DL eGFR AMER. (test code 101 ML/MIN/1.73 = 26694) eGFR NON- AMER. (test 87 ML/MIN/1.73 code = 13260) CALCULATED BUN/CREAT (test 14 RATIO code = 2235) SODIUM (test code = 2231) 139 MEQ/L POTASSIUM (test code = 2228) 4.1 MEQ/L CHLORIDE (test code = 2215) 103 MEQ/L CARBON DIOXIDE (test code = 24 MEQ/L 2206) CALCIUM (test code = 2209) 9.4 MG/DL PROTEIN, TOTAL (test code = 7.5 G/DL 2228) ALBUMIN (test code = 2201) 4.4 G/DL CALCULATED GLOBULIN (test 3.1 G/DL code = 2240) CALCULATED A/G RATIO (test 1.4 RATIO code = 2234) BILIRUBIN, TOTAL (test code = 0.5 MG/DL 2206) ALKALINE PHOSPHATASE (test 108 U/L code = 2204) SGOT (AST) (test code = 2218) 16 U/L SGPT (ALT) (test code = 2219) 20 U/L COMPREHENSIVE METABOLIC [id number] 00:00:00 Test Item Value Reference Range Interpretation Comments GLUCOSE (test code = 2217) 129 MG/DL BUN (test code = 2208) 11 MG/DL CREATININE (test code = 2214) 0.79 MG/DL eGFR AMER. (test code 101 ML/MIN/1.73 = 85266) eGFR NON- AMER. (test 87 ML/MIN/1.73 code = 48350) CALCULATED BUN/CREAT (test 14 RATIO code = 2235) SODIUM (test code = 2231) 139 MEQ/L POTASSIUM (test code = 2228) 4.1 MEQ/L CHLORIDE (test code = 2215) 103 MEQ/L CARBON DIOXIDE (test code = 24 MEQ/L 2206) CALCIUM (test code = 2209) 9.4 MG/DL PROTEIN, TOTAL (test code = 7.5 G/DL 2228) ALBUMIN (test code = 2201) 4.4 G/DL CALCULATED GLOBULIN (test 3.1 G/DL code = 2240) CALCULATED A/G RATIO (test 1.4 RATIO code = 2234) BILIRUBIN, TOTAL (test code = 0.5 MG/DL 2206) ALKALINE PHOSPHATASE (test 108 U/L code = 2204) SGOT (AST) (test code = 2218) 16 U/L SGPT (ALT) (test code = 2219) 20 U/L LIPID [id number] 00:00:00 Test Item Value Reference Range Interpretation Comments CHOLESTEROL (test code = 2210) 273 MG/DL TRIGLYCERIDES (test code = 2232) 203 MG/DL HDL CHOLESTEROL (test code = 2220) 57 MG/DL CALCULATED LDL CHOL (test code = 175 MG/DL 2237) RISK RATIO LDL/HDL (test code = 3.08 RATIO 2238) LIPID [id number] 00:00:00 Test Item Value Reference Range Interpretation Comments CHOLESTEROL (test code = 2210) 273 MG/DL TRIGLYCERIDES (test code = 2232) 203 MG/DL HDL CHOLESTEROL (test code = 2220) 57 MG/DL CALCULATED LDL CHOL (test code = 175 MG/DL 2237) RISK RATIO LDL/HDL (test code = 3.08 RATIO 2238) CBC W/AUTO [id number] 00:00:00 Test Item Value Reference Range Interpretation Comments WBC (test code = 1001) 5.8 K/UL RBC (test code = 1002) 4.60 M/UL HEMOGLOBIN (test code = 1003) 13.5 G/DL HEMATOCRIT (test code = 1004) 40.6 % MCV (test code = 1005) 88.3 fL MCH (test code = 1006) 29.3 PG MCHC (test code = 1007) 33.3 G/DL RDW (test code = 1038) 15.3 % NEUTROPHILS (test code = 1008) 68 % LYMPHOCYTES (test code = 1010) 26 % MONOCYTES (test code = 1011) 5 % EOSINOPHILS (test code = 1012) 1 % BASOPHILS (test code = 1013) % PLATELET COUNT (test code = 1015) 222 K/UL CBC W/AUTO [id number] 00:00:00 Test Item Value Reference Range Interpretation Comments WBC (test code = 1001) 5.8 K/UL RBC (test code = 1002) 4.60 M/UL HEMOGLOBIN (test code = 1003) 13.5 G/DL HEMATOCRIT (test code = 1004) 40.6 % MCV (test code = 1005) 88.3 fL MCH (test code = 1006) 29.3 PG MCHC (test code = 1007) 33.3 G/DL RDW (test code = 1038) 15.3 % NEUTROPHILS (test code = 1008) 68 % LYMPHOCYTES (test code = 1010) 26 % MONOCYTES (test code = 1011) 5 % EOSINOPHILS (test code = 1012) 1 % BASOPHILS (test code = 1013) % PLATELET COUNT (test code = 1015) 222 K/UL CBC W/AUTO [id number] 00:00:00 Test Item Value Reference Range Interpretation Comments WBC (test code = 1001) 5.8 K/UL RBC (test code = 1002) 4.60 M/UL HEMOGLOBIN (test code = 1003) 13.5 G/DL HEMATOCRIT (test code = 1004) 40.6 % MCV (test code = 1005) 88.3 fL MCH (test code = 1006) 29.3 PG MCHC (test code = 1007) 33.3 G/DL RDW (test code = 1038) 15.3 % NEUTROPHILS (test code = 1008) 68 % LYMPHOCYTES (test code = 1010) 26 % MONOCYTES (test code = 1011) 5 % EOSINOPHILS (test code = 1012) 1 % BASOPHILS (test code = 1013) % PLATELET COUNT (test code = 1015) 222 K/UL HEMOGLOBIN [id number] 00:00:00 Test Item Value Reference Range Interpretation Comments HEMOGLOBIN A1c (test code = 05793) 6.9 % HEMOGLOBIN [id number] 00:00:00 Test Item Value Reference Range Interpretation Comments HEMOGLOBIN A1c (test code = 82879) 6.9 % HEMOGLOBIN [id number] 00:00:00 Test Item Value Reference Range Interpretation Comments HEMOGLOBIN A1c (test code = 38876) 6.9 % [id number] 00:00:00 Test Item Value Reference Range Interpretation Comments TSH (test code = 2821) 2.6 UIU/ML [id number] 00:00:00 Test Item Value Reference Range Interpretation Comments TSH (test code = 2821) 2.6 UIU/ML [id number] 00:00:00 Test Item Value Reference Range Interpretation Comments TSH (test code = 2821) 2.6 UIU/ML COMPREHENSIVE METABOLIC [id number] 00:00:00 Test Item Value Reference Range Interpretation Comments GLUCOSE (test code = 2217) 129 MG/DL BUN (test code = 2208) 11 MG/DL CREATININE (test code = 2214) 0.79 MG/DL eGFR AMER. (test code 101 ML/MIN/1.73 = 38100) eGFR NON- AMER. (test 87 ML/MIN/1.73 code = 24346) CALCULATED BUN/CREAT (test 14 RATIO code = 2235) SODIUM (test code = 2231) 139 MEQ/L POTASSIUM (test code = 2228) 4.1 MEQ/L CHLORIDE (test code = 2215) 103 MEQ/L CARBON DIOXIDE (test code = 24 MEQ/L 2205) CALCIUM (test code = 2209) 9.4 MG/DL PROTEIN, TOTAL (test code = 7.5 G/DL 2228) ALBUMIN (test code = 2201) 4.4 G/DL CALCULATED GLOBULIN (test 3.1 G/DL code = 2240) CALCULATED A/G RATIO (test 1.4 RATIO code = 2234) BILIRUBIN, TOTAL (test code = 0.5 MG/DL 2206) ALKALINE PHOSPHATASE (test 108 U/L code = 2204) SGOT (AST) (test code = 2218) 16 U/L SGPT (ALT) (test code = 2219) 20 U/L COMPREHENSIVE METABOLIC [id number] 00:00:00 Test Item Value Reference Range Interpretation Comments GLUCOSE (test code = 2217) 129 MG/DL BUN (test code = 2208) 11 MG/DL CREATININE (test code = 2214) 0.79 MG/DL eGFR AMER. (test code 101 ML/MIN/1.73 = 04495) eGFR NON- AMER. (test 87 ML/MIN/1.73 code = 50399) CALCULATED BUN/CREAT (test 14 RATIO code = 2235) SODIUM (test code = 2231) 139 MEQ/L POTASSIUM (test code = 2228) 4.1 MEQ/L CHLORIDE (test code = 2215) 103 MEQ/L CARBON DIOXIDE (test code = 24 MEQ/L 220) CALCIUM (test code = 2209) 9.4 MG/DL PROTEIN, TOTAL (test code = 7.5 G/DL 2228) ALBUMIN (test code = 2201) 4.4 G/DL CALCULATED GLOBULIN (test 3.1 G/DL code = 2240) CALCULATED A/G RATIO (test 1.4 RATIO code = 2234) BILIRUBIN, TOTAL (test code = 0.5 MG/DL 2206) ALKALINE PHOSPHATASE (test 108 U/L code = 2204) SGOT (AST) (test code = 2218) 16 U/L SGPT (ALT) (test code = 2219) 20 U/L LIPID [id number] 00:00:00 Test Item Value Reference Range Interpretation Comments CHOLESTEROL (test code = 2210) 273 MG/DL TRIGLYCERIDES (test code = 2232) 203 MG/DL HDL CHOLESTEROL (test code = 2220) 57 MG/DL CALCULATED LDL CHOL (test code = 175 MG/DL 2237) RISK RATIO LDL/HDL (test code = 3.08 RATIO 2238) LIPID [id number] 00:00:00 Test Item Value Reference Range Interpretation Comments CHOLESTEROL (test code = 2210) 273 MG/DL TRIGLYCERIDES (test code = 2232) 203 MG/DL HDL CHOLESTEROL (test code = 2220) 57 MG/DL CALCULATED LDL CHOL (test code = 175 MG/DL 2237) RISK RATIO LDL/HDL (test code = 3.08 RATIO 2238) CBC W/AUTO [id number] 00:00:00 Test Item Value Reference Range Interpretation Comments WBC (test code = 1001) 5.8 K/UL RBC (test code = 1002) 4.60 M/UL HEMOGLOBIN (test code = 1003) 13.5 G/DL HEMATOCRIT (test code = 1004) 40.6 % MCV (test code = 1005) 88.3 fL MCH (test code = 1006) 29.3 PG MCHC (test code = 1007) 33.3 G/DL RDW (test code = 1038) 15.3 % NEUTROPHILS (test code = 1008) 68 % LYMPHOCYTES (test code = 1010) 26 % MONOCYTES (test code = 1011) 5 % EOSINOPHILS (test code = 1012) 1 % BASOPHILS (test code = 1013) % PLATELET COUNT (test code = 1015) 222 K/UL CBC W/AUTO [id number] 00:00:00 Test Item Value Reference Range Interpretation Comments WBC (test code = 1001) 5.8 K/UL RBC (test code = 1002) 4.60 M/UL HEMOGLOBIN (test code = 1003) 13.5 G/DL HEMATOCRIT (test code = 1004) 40.6 % MCV (test code = 1005) 88.3 fL MCH (test code = 1006) 29.3 PG MCHC (test code = 1007) 33.3 G/DL RDW (test code = 1038) 15.3 % NEUTROPHILS (test code = 1008) 68 % LYMPHOCYTES (test code = 1010) 26 % MONOCYTES (test code = 1011) 5 % EOSINOPHILS (test code = 1012) 1 % BASOPHILS (test code = 1013) % PLATELET COUNT (test code = 1015) 222 K/UL CBC W/AUTO [id number] 00:00:00 Test Item Value Reference Range Interpretation Comments WBC (test code = 1001) 5.8 K/UL RBC (test code = 1002) 4.60 M/UL HEMOGLOBIN (test code = 1003) 13.5 G/DL HEMATOCRIT (test code = 1004) 40.6 % MCV (test code = 1005) 88.3 fL MCH (test code = 1006) 29.3 PG MCHC (test code = 1007) 33.3 G/DL RDW (test code = 1038) 15.3 % NEUTROPHILS (test code = 1008) 68 % LYMPHOCYTES (test code = 1010) 26 % MONOCYTES (test code = 1011) 5 % EOSINOPHILS (test code = 1012) 1 % BASOPHILS (test code = 1013) % PLATELET COUNT (test code = 1015) 222 K/UL HEMOGLOBIN [id number] 00:00:00 Test Item Value Reference Range Interpretation Comments HEMOGLOBIN A1c (test code = 67527) 6.9 % HEMOGLOBIN [id number] 00:00:00 Test Item Value Reference Range Interpretation Comments HEMOGLOBIN A1c (test code = 71230) 6.9 % HEMOGLOBIN [id number] 00:00:00 Test Item Value Reference Range Interpretation Comments HEMOGLOBIN A1c (test code = 64114) 6.9 % [id number] 00:00:00 Test Item Value Reference Range Interpretation Comments TSH (test code = 2821) 2.6 UIU/ML [id number] 00:00:00 Test Item Value Reference Range Interpretation Comments TSH (test code = 2821) 2.6 UIU/ML [id number] 00:00:00 Test Item Value Reference Range Interpretation Comments TSH (test code = 2821) 2.6 UIU/ML COMPREHENSIVE METABOLIC [id number] 00:00:00 Test Item Value Reference Range Interpretation Comments GLUCOSE (test code = 2217) 129 MG/DL BUN (test code = 2208) 11 MG/DL CREATININE (test code = 2214) 0.79 MG/DL eGFR AMER. (test code 101 ML/MIN/1.73 = 53047) eGFR NON- AMER. (test 87 ML/MIN/1.73 code = 83433) CALCULATED BUN/CREAT (test 14 RATIO code = 2235) SODIUM (test code = 2231) 139 MEQ/L POTASSIUM (test code = 2228) 4.1 MEQ/L CHLORIDE (test code = 2215) 103 MEQ/L CARBON DIOXIDE (test code = 24 MEQ/L 2205) CALCIUM (test code = 2209) 9.4 MG/DL PROTEIN, TOTAL (test code = 7.5 G/DL 2228) ALBUMIN (test code = 2201) 4.4 G/DL CALCULATED GLOBULIN (test 3.1 G/DL code = 2240) CALCULATED A/G RATIO (test 1.4 RATIO code = 2234) BILIRUBIN, TOTAL (test code = 0.5 MG/DL 2206) ALKALINE PHOSPHATASE (test 108 U/L code = 2204) SGOT (AST) (test code = 2218) 16 U/L SGPT (ALT) (test code = 2219) 20 U/L COMPREHENSIVE METABOLIC [id number] 00:00:00 Test Item Value Reference Range Interpretation Comments GLUCOSE (test code = 2217) 129 MG/DL BUN (test code = 2208) 11 MG/DL CREATININE (test code = 2214) 0.79 MG/DL eGFR AMER. (test code 101 ML/MIN/1.73 = 28871) eGFR NON- AMER. (test 87 ML/MIN/1.73 code = 50913) CALCULATED BUN/CREAT (test 14 RATIO code = 2235) SODIUM (test code = 2231) 139 MEQ/L POTASSIUM (test code = 2228) 4.1 MEQ/L CHLORIDE (test code = 2215) 103 MEQ/L CARBON DIOXIDE (test code = 24 MEQ/L 220) CALCIUM (test code = 2209) 9.4 MG/DL PROTEIN, TOTAL (test code = 7.5 G/DL 2228) ALBUMIN (test code = 2201) 4.4 G/DL CALCULATED GLOBULIN (test 3.1 G/DL code = 2240) CALCULATED A/G RATIO (test 1.4 RATIO code = 2234) BILIRUBIN, TOTAL (test code = 0.5 MG/DL 2206) ALKALINE PHOSPHATASE (test 108 U/L code = 2204) SGOT (AST) (test code = 2218) 16 U/L SGPT (ALT) (test code = 2219) 20 U/L COMPREHENSIVE METABOLIC [id number] 00:00:00 Test Item Value Reference Range Interpretation Comments GLUCOSE (test code = 2217) 129 MG/DL BUN (test code = 2208) 11 MG/DL CREATININE (test code = 2214) 0.79 MG/DL eGFR AMER. (test code 101 ML/MIN/1.73 = 04880) eGFR NON- AMER. (test 87 ML/MIN/1.73 code = 77130) CALCULATED BUN/CREAT (test 14 RATIO code = 2235) SODIUM (test code = 2231) 139 MEQ/L POTASSIUM (test code = 2228) 4.1 MEQ/L CHLORIDE (test code = 2215) 103 MEQ/L CARBON DIOXIDE (test code = 24 MEQ/L 2205) CALCIUM (test code = 2209) 9.4 MG/DL PROTEIN, TOTAL (test code = 7.5 G/DL 2228) ALBUMIN (test code = 2201) 4.4 G/DL CALCULATED GLOBULIN (test 3.1 G/DL code = 2240) CALCULATED A/G RATIO (test 1.4 RATIO code = 2234) BILIRUBIN, TOTAL (test code = 0.5 MG/DL 2206) ALKALINE PHOSPHATASE (test 108 U/L code = 2204) SGOT (AST) (test code = 2218) 16 U/L SGPT (ALT) (test code = 2219) 20 U/L COMPREHENSIVE METABOLIC [id number] 00:00:00 Test Item Value Reference Range Interpretation Comments GLUCOSE (test code = 2217) 129 MG/DL BUN (test code = 2208) 11 MG/DL CREATININE (test code = 2214) 0.79 MG/DL eGFR AMER. (test code 101 ML/MIN/1.73 = 04555) eGFR NON- AMER. (test 87 ML/MIN/1.73 code = 08975) CALCULATED BUN/CREAT (test 14 RATIO code = 2235) SODIUM (test code = 2231) 139 MEQ/L POTASSIUM (test code = 2228) 4.1 MEQ/L CHLORIDE (test code = 2215) 103 MEQ/L CARBON DIOXIDE (test code = 24 MEQ/L 2205) CALCIUM (test code = 2209) 9.4 MG/DL PROTEIN, TOTAL (test code = 7.5 G/DL 2228) ALBUMIN (test code = 2201) 4.4 G/DL CALCULATED GLOBULIN (test 3.1 G/DL code = 2240) CALCULATED A/G RATIO (test 1.4 RATIO code = 2234) BILIRUBIN, TOTAL (test code = 0.5 MG/DL 2206) ALKALINE PHOSPHATASE (test 108 U/L code = 2204) SGOT (AST) (test code = 2218) 16 U/L SGPT (ALT) (test code = 2219) 20 U/L LIPID [id number] 00:00:00 Test Item Value Reference Range Interpretation Comments CHOLESTEROL (test code = 2210) 273 MG/DL TRIGLYCERIDES (test code = 2232) 203 MG/DL HDL CHOLESTEROL (test code = 2220) 57 MG/DL CALCULATED LDL CHOL (test code = 175 MG/DL 2236) RISK RATIO LDL/HDL (test code = 3.08 RATIO 2238) LIPID [id number] 00:00:00 Test Item Value Reference Range Interpretation Comments CHOLESTEROL (test code = 2210) 273 MG/DL TRIGLYCERIDES (test code = 2232) 203 MG/DL HDL CHOLESTEROL (test code = 2220) 57 MG/DL CALCULATED LDL CHOL (test code = 175 MG/DL 2237) RISK RATIO LDL/HDL (test code = 3.08 RATIO 2238) CBC W/AUTO [id number] 00:00:00 Test Item Value Reference Range Interpretation Comments WBC (test code = 1001) 5.8 K/UL RBC (test code = 1002) 4.60 M/UL HEMOGLOBIN (test code = 1003) 13.5 G/DL HEMATOCRIT (test code = 1004) 40.6 % MCV (test code = 1005) 88.3 fL MCH (test code = 1006) 29.3 PG MCHC (test code = 1007) 33.3 G/DL RDW (test code = 1038) 15.3 % NEUTROPHILS (test code = 1008) 68 % LYMPHOCYTES (test code = 1010) 26 % MONOCYTES (test code = 1011) 5 % EOSINOPHILS (test code = 1012) 1 % BASOPHILS (test code = 1013) % PLATELET COUNT (test code = 1015) 222 K/UL CBC W/AUTO [id number] 00:00:00 Test Item Value Reference Range Interpretation Comments WBC (test code = 1001) 5.8 K/UL RBC (test code = 1002) 4.60 M/UL HEMOGLOBIN (test code = 1003) 13.5 G/DL HEMATOCRIT (test code = 1004) 40.6 % MCV (test code = 1005) 88.3 fL MCH (test code = 1006) 29.3 PG MCHC (test code = 1007) 33.3 G/DL RDW (test code = 1038) 15.3 % NEUTROPHILS (test code = 1008) 68 % LYMPHOCYTES (test code = 1010) 26 % MONOCYTES (test code = 1011) 5 % EOSINOPHILS (test code = 1012) 1 % BASOPHILS (test code = 1013) % PLATELET COUNT (test code = 1015) 222 K/UL CBC W/AUTO [id number] 00:00:00 Test Item Value Reference Range Interpretation Comments WBC (test code = 1001) 5.8 K/UL RBC (test code = 1002) 4.60 M/UL HEMOGLOBIN (test code = 1003) 13.5 G/DL HEMATOCRIT (test code = 1004) 40.6 % MCV (test code = 1005) 88.3 fL MCH (test code = 1006) 29.3 PG MCHC (test code = 1007) 33.3 G/DL RDW (test code = 1038) 15.3 % NEUTROPHILS (test code = 1008) 68 % LYMPHOCYTES (test code = 1010) 26 % MONOCYTES (test code = 1011) 5 % EOSINOPHILS (test code = 1012) 1 % BASOPHILS (test code = 1013) % PLATELET COUNT (test code = 1015) 222 K/UL HEMOGLOBIN [id number] 00:00:00 Test Item Value Reference Range Interpretation Comments HEMOGLOBIN A1c (test code = 49931) 6.9 % HEMOGLOBIN [id number] 00:00:00 Test Item Value Reference Range Interpretation Comments HEMOGLOBIN A1c (test code = 06240) 6.9 % HEMOGLOBIN [id number] 00:00:00 Test Item Value Reference Range Interpretation Comments HEMOGLOBIN A1c (test code = 29762) 6.9 % [id number] 00:00:00 Test Item Value Reference Range Interpretation Comments TSH (test code = 2821) 2.6 UIU/ML [id number] 00:00:00 Test Item Value Reference Range Interpretation Comments TSH (test code = 2821) 2.6 UIU/ML [id number] 00:00:00 Test Item Value Reference Range Interpretation Comments TSH (test code = 2821) 2.6 UIU/ML LIPID [id number] 00:00:00 Test Item Value Reference Range Interpretation Comments CHOLESTEROL (test code = 2210) 273 MG/DL TRIGLYCERIDES (test code = 2232) 203 MG/DL HDL CHOLESTEROL (test code = 2220) 57 MG/DL CALCULATED LDL CHOL (test code = 175 MG/DL 2237) RISK RATIO LDL/HDL (test code = 3.08 RATIO 2238) LIPID [id number] 00:00:00 Test Item Value Reference Range Interpretation Comments CHOLESTEROL (test code = 2210) 273 MG/DL TRIGLYCERIDES (test code = 2232) 203 MG/DL HDL CHOLESTEROL (test code = 2220) 57 MG/DL CALCULATED LDL CHOL (test code = 175 MG/DL 2237) RISK RATIO LDL/HDL (test code = 3.08 RATIO 2238) CBC W/AUTO [id number] 00:00:00 Test Item Value Reference Range Interpretation Comments WBC (test code = 1001) 5.8 K/UL RBC (test code = 1002) 4.60 M/UL HEMOGLOBIN (test code = 1003) 13.5 G/DL HEMATOCRIT (test code = 1004) 40.6 % MCV (test code = 1005) 88.3 fL MCH (test code = 1006) 29.3 PG MCHC (test code = 1007) 33.3 G/DL RDW (test code = 1038) 15.3 % NEUTROPHILS (test code = 1008) 68 % LYMPHOCYTES (test code = 1010) 26 % MONOCYTES (test code = 1011) 5 % EOSINOPHILS (test code = 1012) 1 % BASOPHILS (test code = 1013) % PLATELET COUNT (test code = 1015) 222 K/UL CBC W/AUTO [id number] 00:00:00 Test Item Value Reference Range Interpretation Comments WBC (test code = 1001) 5.8 K/UL RBC (test code = 1002) 4.60 M/UL HEMOGLOBIN (test code = 1003) 13.5 G/DL HEMATOCRIT (test code = 1004) 40.6 % MCV (test code = 1005) 88.3 fL MCH (test code = 1006) 29.3 PG MCHC (test code = 1007) 33.3 G/DL RDW (test code = 1038) 15.3 % NEUTROPHILS (test code = 1008) 68 % LYMPHOCYTES (test code = 1010) 26 % MONOCYTES (test code = 1011) 5 % EOSINOPHILS (test code = 1012) 1 % BASOPHILS (test code = 1013) % PLATELET COUNT (test code = 1015) 222 K/UL CBC W/AUTO [id number] 00:00:00 Test Item Value Reference Range Interpretation Comments WBC (test code = 1001) 5.8 K/UL RBC (test code = 1002) 4.60 M/UL HEMOGLOBIN (test code = 1003) 13.5 G/DL HEMATOCRIT (test code = 1004) 40.6 % MCV (test code = 1005) 88.3 fL MCH (test code = 1006) 29.3 PG MCHC (test code = 1007) 33.3 G/DL RDW (test code = 1038) 15.3 % NEUTROPHILS (test code = 1008) 68 % LYMPHOCYTES (test code = 1010) 26 % MONOCYTES (test code = 1011) 5 % EOSINOPHILS (test code = 1012) 1 % BASOPHILS (test code = 1013) % PLATELET COUNT (test code = 1015) 222 K/UL HEMOGLOBIN [id number] 00:00:00 Test Item Value Reference Range Interpretation Comments HEMOGLOBIN A1c (test code = 04806) 6.9 % HEMOGLOBIN [id number] 00:00:00 Test Item Value Reference Range Interpretation Comments HEMOGLOBIN A1c (test code = 44293) 6.9 % HEMOGLOBIN [id number] 00:00:00 Test Item Value Reference Range Interpretation Comments HEMOGLOBIN A1c (test code = 90773) 6.9 % [id number] 00:00:00 Test Item Value Reference Range Interpretation Comments TSH (test code = 2821) 2.6 UIU/ML [id number] 00:00:00 Test Item Value Reference Range Interpretation Comments TSH (test code = 2821) 2.6 UIU/ML [id number] 00:00:00 Test Item Value Reference Range Interpretation Comments TSH (test code = 2821) 2.6 UIU/ML COMPREHENSIVE METABOLIC [id number] 00:00:00 Test Item Value Reference Range Interpretation Comments GLUCOSE (test code = 2217) 157 MG/DL BUN (test code = 2208) 10 MG/DL CREATININE (test code = 2214) 0.7 MG/DL eGFR AMER. (test code 108 ML/MIN/1.73 = 27361) eGFR NON- AMER. (test 89 ML/MIN/1.73 code = 55739) CALCULATED BUN/CREAT (test 14 RATIO code = 2235) SODIUM (test code = 2231) 140 MEQ/L POTASSIUM (test code = 2228) 4.2 MEQ/L CHLORIDE (test code = 2215) 103 MEQ/L CARBON DIOXIDE (test code = 24 MEQ/L 2205) CALCIUM (test code = 2209) 9.6 MG/DL PROTEIN, TOTAL (test code = 7.9 G/DL 2228) ALBUMIN (test code = 2201) 4.5 G/DL CALCULATED GLOBULIN (test 3.4 G/DL code = 2240) CALCULATED A/G RATIO (test 1.3 RATIO code = 2234) BILIRUBIN, TOTAL (test code = 0.4 MG/DL 2206) ALKALINE PHOSPHATASE (test 83 U/L code = 2204) SGOT (AST) (test code = 2218) 17 U/L SGPT (ALT) (test code = 2219) 15 U/L COMPREHENSIVE METABOLIC [id number] 00:00:00 Test Item Value Reference Range Interpretation Comments GLUCOSE (test code = 2217) 157 MG/DL BUN (test code = 2208) 10 MG/DL CREATININE (test code = 2214) 0.7 MG/DL eGFR AMER. (test code 108 ML/MIN/1.73 = 50561) eGFR NON- AMER. (test 89 ML/MIN/1.73 code = 66368) CALCULATED BUN/CREAT (test 14 RATIO code = 2235) SODIUM (test code = 2231) 140 MEQ/L POTASSIUM (test code = 2228) 4.2 MEQ/L CHLORIDE (test code = 2215) 103 MEQ/L CARBON DIOXIDE (test code = 24 MEQ/L 2205) CALCIUM (test code = 2209) 9.6 MG/DL PROTEIN, TOTAL (test code = 7.9 G/DL 2228) ALBUMIN (test code = 2201) 4.5 G/DL CALCULATED GLOBULIN (test 3.4 G/DL code = 2240) CALCULATED A/G RATIO (test 1.3 RATIO code = 2234) BILIRUBIN, TOTAL (test code = 0.4 MG/DL 2206) ALKALINE PHOSPHATASE (test 83 U/L code = 2204) SGOT (AST) (test code = 2218) 17 U/L SGPT (ALT) (test code = 2219) 15 U/L LIPID [id number] 00:00:00 Test Item Value Reference Range Interpretation Comments CHOLESTEROL (test code = 2210) 301 MG/DL TRIGLYCERIDES (test code = 2232) 233 MG/DL HDL CHOLESTEROL (test code = 2220) 68 MG/DL CALCULATED LDL CHOL (test code = 186 MG/DL 2237) RISK RATIO LDL/HDL (test code = 2.74 RATIO 2238) LIPID [id number] 00:00:00 Test Item Value Reference Range Interpretation Comments CHOLESTEROL (test code = 2210) 301 MG/DL TRIGLYCERIDES (test code = 2232) 233 MG/DL HDL CHOLESTEROL (test code = 2220) 68 MG/DL CALCULATED LDL CHOL (test code = 186 MG/DL 2237) RISK RATIO LDL/HDL (test code = 2.74 RATIO 2238) CBC W/AUTO [id number] 00:00:00 Test Item Value Reference Range Interpretation Comments WBC (test code = 1001) 6.4 K/UL RBC (test code = 1002) 4.42 M/UL HEMOGLOBIN (test code = 1003) 13.2 G/DL HEMATOCRIT (test code = 1004) 39.7 % MCV (test code = 1005) 89.8 fL MCH (test code = 1006) 29.9 PG MCHC (test code = 1007) 33.2 G/DL RDW (test code = 1038) 14.0 % NEUTROPHILS (test code = 1008) 64 % LYMPHOCYTES (test code = 1010) 29 % MONOCYTES (test code = 1011) 5 % EOSINOPHILS (test code = 1012) 2 % BASOPHILS (test code = 1013) % PLATELET COUNT (test code = 1015) 265 K/UL CBC W/AUTO [id number] 00:00:00 Test Item Value Reference Range Interpretation Comments WBC (test code = 1001) 6.4 K/UL RBC (test code = 1002) 4.42 M/UL HEMOGLOBIN (test code = 1003) 13.2 G/DL HEMATOCRIT (test code = 1004) 39.7 % MCV (test code = 1005) 89.8 fL MCH (test code = 1006) 29.9 PG MCHC (test code = 1007) 33.2 G/DL RDW (test code = 1038) 14.0 % NEUTROPHILS (test code = 1008) 64 % LYMPHOCYTES (test code = 1010) 29 % MONOCYTES (test code = 1011) 5 % EOSINOPHILS (test code = 1012) 2 % BASOPHILS (test code = 1013) % PLATELET COUNT (test code = 1015) 265 K/UL CBC W/AUTO [id number] 00:00:00 Test Item Value Reference Range Interpretation Comments WBC (test code = 1001) 6.4 K/UL RBC (test code = 1002) 4.42 M/UL HEMOGLOBIN (test code = 1003) 13.2 G/DL HEMATOCRIT (test code = 1004) 39.7 % MCV (test code = 1005) 89.8 fL MCH (test code = 1006) 29.9 PG MCHC (test code = 1007) 33.2 G/DL RDW (test code = 1038) 14.0 % NEUTROPHILS (test code = 1008) 64 % LYMPHOCYTES (test code = 1010) 29 % MONOCYTES (test code = 1011) 5 % EOSINOPHILS (test code = 1012) 2 % BASOPHILS (test code = 1013) % PLATELET COUNT (test code = 1015) 265 K/UL HEMOGLOBIN [id number] 00:00:00 Test Item Value Reference Range Interpretation Comments HEMOGLOBIN A1c (test code = 10812) 6.2 % HEMOGLOBIN [id number] 00:00:00 Test Item Value Reference Range Interpretation Comments HEMOGLOBIN A1c (test code = 98981) 6.2 % HEMOGLOBIN [id number] 00:00:00 Test Item Value Reference Range Interpretation Comments HEMOGLOBIN A1c (test code = 58991) 6.2 % THYROID II PROFILE (T3U, T4, T7, TSH)[id number] 00:00:00 Test Item Value Reference Range Interpretation Comments T3 UPTAKE (test code = 2817) 25.5 % T4 (THYROXINE) (test code = 2819) 7.7 UG/DL CALCULATED T7 (FTI) (test code = 1.96 2820) TSH (test code = 2821) 1.1 UIU/ML THYROID II PROFILE (T3U, T4, T7, TSH)[id number] 00:00:00 Test Item Value Reference Range Interpretation Comments T3 UPTAKE (test code = 2817) 25.5 % T4 (THYROXINE) (test code = 2819) 7.7 UG/DL CALCULATED T7 (FTI) (test code = 1.96 2820) TSH (test code = 2821) 1.1 UIU/ML COMPREHENSIVE METABOLIC [id number] 00:00:00 Test Item Value Reference Range Interpretation Comments GLUCOSE (test code = 2217) 157 MG/DL BUN (test code = 2208) 10 MG/DL CREATININE (test code = 2214) 0.7 MG/DL eGFR AMER. (test code 108 ML/MIN/1.73 = 19940) eGFR NON- AMER. (test 89 ML/MIN/1.73 code = 75204) CALCULATED BUN/CREAT (test 14 RATIO code = 2235) SODIUM (test code = 2231) 140 MEQ/L POTASSIUM (test code = 2228) 4.2 MEQ/L CHLORIDE (test code = 2215) 103 MEQ/L CARBON DIOXIDE (test code = 24 MEQ/L 2205) CALCIUM (test code = 2209) 9.6 MG/DL PROTEIN, TOTAL (test code = 7.9 G/DL 2228) ALBUMIN (test code = 2201) 4.5 G/DL CALCULATED GLOBULIN (test 3.4 G/DL code = 2240) CALCULATED A/G RATIO (test 1.3 RATIO code = 2234) BILIRUBIN, TOTAL (test code = 0.4 MG/DL 2206) ALKALINE PHOSPHATASE (test 83 U/L code = 2204) SGOT (AST) (test code = 2218) 17 U/L SGPT (ALT) (test code = 2219) 15 U/L COMPREHENSIVE METABOLIC [id number] 00:00:00 Test Item Value Reference Range Interpretation Comments GLUCOSE (test code = 2217) 157 MG/DL BUN (test code = 2208) 10 MG/DL CREATININE (test code = 2214) 0.7 MG/DL eGFR AMER. (test code 108 ML/MIN/1.73 = 61344) eGFR NON- AMER. (test 89 ML/MIN/1.73 code = 27035) CALCULATED BUN/CREAT (test 14 RATIO code = 2235) SODIUM (test code = 2231) 140 MEQ/L POTASSIUM (test code = 2228) 4.2 MEQ/L CHLORIDE (test code = 2215) 103 MEQ/L CARBON DIOXIDE (test code = 24 MEQ/L 220) CALCIUM (test code = 2209) 9.6 MG/DL PROTEIN, TOTAL (test code = 7.9 G/DL 2228) ALBUMIN (test code = 2201) 4.5 G/DL CALCULATED GLOBULIN (test 3.4 G/DL code = 2240) CALCULATED A/G RATIO (test 1.3 RATIO code = 2234) BILIRUBIN, TOTAL (test code = 0.4 MG/DL 2206) ALKALINE PHOSPHATASE (test 83 U/L code = 2204) SGOT (AST) (test code = 2218) 17 U/L SGPT (ALT) (test code = 2219) 15 U/L LIPID [id number] 00:00:00 Test Item Value Reference Range Interpretation Comments CHOLESTEROL (test code = 2210) 301 MG/DL TRIGLYCERIDES (test code = 2232) 233 MG/DL HDL CHOLESTEROL (test code = 2220) 68 MG/DL CALCULATED LDL CHOL (test code = 186 MG/DL 2237) RISK RATIO LDL/HDL (test code = 2.74 RATIO 2238) LIPID [id number] 00:00:00 Test Item Value Reference Range Interpretation Comments CHOLESTEROL (test code = 2210) 301 MG/DL TRIGLYCERIDES (test code = 2232) 233 MG/DL HDL CHOLESTEROL (test code = 2220) 68 MG/DL CALCULATED LDL CHOL (test code = 186 MG/DL 2237) RISK RATIO LDL/HDL (test code = 2.74 RATIO 2238) CBC W/AUTO [id number] 00:00:00 Test Item Value Reference Range Interpretation Comments WBC (test code = 1001) 6.4 K/UL RBC (test code = 1002) 4.42 M/UL HEMOGLOBIN (test code = 1003) 13.2 G/DL HEMATOCRIT (test code = 1004) 39.7 % MCV (test code = 1005) 89.8 fL MCH (test code = 1006) 29.9 PG MCHC (test code = 1007) 33.2 G/DL RDW (test code = 1038) 14.0 % NEUTROPHILS (test code = 1008) 64 % LYMPHOCYTES (test code = 1010) 29 % MONOCYTES (test code = 1011) 5 % EOSINOPHILS (test code = 1012) 2 % BASOPHILS (test code = 1013) % PLATELET COUNT (test code = 1015) 265 K/UL CBC W/AUTO [id number] 00:00:00 Test Item Value Reference Range Interpretation Comments WBC (test code = 1001) 6.4 K/UL RBC (test code = 1002) 4.42 M/UL HEMOGLOBIN (test code = 1003) 13.2 G/DL HEMATOCRIT (test code = 1004) 39.7 % MCV (test code = 1005) 89.8 fL MCH (test code = 1006) 29.9 PG MCHC (test code = 1007) 33.2 G/DL RDW (test code = 1038) 14.0 % NEUTROPHILS (test code = 1008) 64 % LYMPHOCYTES (test code = 1010) 29 % MONOCYTES (test code = 1011) 5 % EOSINOPHILS (test code = 1012) 2 % BASOPHILS (test code = 1013) % PLATELET COUNT (test code = 1015) 265 K/UL CBC W/AUTO [id number] 00:00:00 Test Item Value Reference Range Interpretation Comments WBC (test code = 1001) 6.4 K/UL RBC (test code = 1002) 4.42 M/UL HEMOGLOBIN (test code = 1003) 13.2 G/DL HEMATOCRIT (test code = 1004) 39.7 % MCV (test code = 1005) 89.8 fL MCH (test code = 1006) 29.9 PG MCHC (test code = 1007) 33.2 G/DL RDW (test code = 1038) 14.0 % NEUTROPHILS (test code = 1008) 64 % LYMPHOCYTES (test code = 1010) 29 % MONOCYTES (test code = 1011) 5 % EOSINOPHILS (test code = 1012) 2 % BASOPHILS (test code = 1013) % PLATELET COUNT (test code = 1015) 265 K/UL HEMOGLOBIN [id number] 00:00:00 Test Item Value Reference Range Interpretation Comments HEMOGLOBIN A1c (test code = 33790) 6.2 % HEMOGLOBIN [id number] 00:00:00 Test Item Value Reference Range Interpretation Comments HEMOGLOBIN A1c (test code = 89726) 6.2 % HEMOGLOBIN [id number] 00:00:00 Test Item Value Reference Range Interpretation Comments HEMOGLOBIN A1c (test code = 28424) 6.2 % THYROID II PROFILE (T3U, T4, T7, TSH)[id number] 00:00:00 Test Item Value Reference Range Interpretation Comments T3 UPTAKE (test code = 2817) 25.5 % T4 (THYROXINE) (test code = 2819) 7.7 UG/DL CALCULATED T7 (FTI) (test code = 1.96 2820) TSH (test code = 2821) 1.1 UIU/ML THYROID II PROFILE (T3U, T4, T7, TSH)2015-02-10 00:00:00 Test Item Value Reference Range Interpretation Comments T3 UPTAKE (test code = 2817) 25.5 % T4 (THYROXINE) (test code = 2819) 7.7 UG/DL CALCULATED T7 (FTI) (test code = 1.96 2820) TSH (test code = 2821) 1.1 UIU/ML COMPREHENSIVE METABOLIC [id number] 00:00:00 Test Item Value Reference Range Interpretation Comments GLUCOSE (test code = 2217) 157 MG/DL BUN (test code = 2208) 10 MG/DL CREATININE (test code = 2214) 0.7 MG/DL eGFR AMER. (test code 108 ML/MIN/1.73 = 74148) eGFR NON- AMER. (test 89 ML/MIN/1.73 code = 57928) CALCULATED BUN/CREAT (test 14 RATIO code = 2235) SODIUM (test code = 2231) 140 MEQ/L POTASSIUM (test code = 2228) 4.2 MEQ/L CHLORIDE (test code = 2215) 103 MEQ/L CARBON DIOXIDE (test code = 24 MEQ/L 2206) CALCIUM (test code = 2209) 9.6 MG/DL PROTEIN, TOTAL (test code = 7.9 G/DL 2228) ALBUMIN (test code = 2201) 4.5 G/DL CALCULATED GLOBULIN (test 3.4 G/DL code = 2240) CALCULATED A/G RATIO (test 1.3 RATIO code = 2234) BILIRUBIN, TOTAL (test code = 0.4 MG/DL 2206) ALKALINE PHOSPHATASE (test 83 U/L code = 2204) SGOT (AST) (test code = 2218) 17 U/L SGPT (ALT) (test code = 2219) 15 U/L COMPREHENSIVE METABOLIC [id number] 00:00:00 Test Item Value Reference Range Interpretation Comments GLUCOSE (test code = 2217) 157 MG/DL BUN (test code = 2208) 10 MG/DL CREATININE (test code = 2214) 0.7 MG/DL eGFR AMER. (test code 108 ML/MIN/1.73 = 89305) eGFR NON- AMER. (test 89 ML/MIN/1.73 code = 88664) CALCULATED BUN/CREAT (test 14 RATIO code = 2235) SODIUM (test code = 2231) 140 MEQ/L POTASSIUM (test code = 2228) 4.2 MEQ/L CHLORIDE (test code = 2215) 103 MEQ/L CARBON DIOXIDE (test code = 24 MEQ/L 2205) CALCIUM (test code = 2209) 9.6 MG/DL PROTEIN, TOTAL (test code = 7.9 G/DL 2228) ALBUMIN (test code = 2201) 4.5 G/DL CALCULATED GLOBULIN (test 3.4 G/DL code = 2240) CALCULATED A/G RATIO (test 1.3 RATIO code = 2234) BILIRUBIN, TOTAL (test code = 0.4 MG/DL 2206) ALKALINE PHOSPHATASE (test 83 U/L code = 2204) SGOT (AST) (test code = 2218) 17 U/L SGPT (ALT) (test code = 2219) 15 U/L COMPREHENSIVE METABOLIC [id number] 00:00:00 Test Item Value Reference Range Interpretation Comments GLUCOSE (test code = 2217) 157 MG/DL BUN (test code = 2208) 10 MG/DL CREATININE (test code = 2214) 0.7 MG/DL eGFR AMER. (test code 108 ML/MIN/1.73 = 56225) eGFR NON- AMER. (test 89 ML/MIN/1.73 code = 40153) CALCULATED BUN/CREAT (test 14 RATIO code = 2235) SODIUM (test code = 2231) 140 MEQ/L POTASSIUM (test code = 2228) 4.2 MEQ/L CHLORIDE (test code = 2215) 103 MEQ/L CARBON DIOXIDE (test code = 24 MEQ/L 2205) CALCIUM (test code = 2209) 9.6 MG/DL PROTEIN, TOTAL (test code = 7.9 G/DL 2228) ALBUMIN (test code = 2201) 4.5 G/DL CALCULATED GLOBULIN (test 3.4 G/DL code = 2240) CALCULATED A/G RATIO (test 1.3 RATIO code = 2234) BILIRUBIN, TOTAL (test code = 0.4 MG/DL 2206) ALKALINE PHOSPHATASE (test 83 U/L code = 2204) SGOT (AST) (test code = 2218) 17 U/L SGPT (ALT) (test code = 2219) 15 U/L LIPID [id number] 00:00:00 Test Item Value Reference Range Interpretation Comments CHOLESTEROL (test code = 2210) 301 MG/DL TRIGLYCERIDES (test code = 2232) 233 MG/DL HDL CHOLESTEROL (test code = 2220) 68 MG/DL CALCULATED LDL CHOL (test code = 186 MG/DL 2237) RISK RATIO LDL/HDL (test code = 2.74 RATIO 2238) LIPID [id number] 00:00:00 Test Item Value Reference Range Interpretation Comments CHOLESTEROL (test code = 2210) 301 MG/DL TRIGLYCERIDES (test code = 2232) 233 MG/DL HDL CHOLESTEROL (test code = 2220) 68 MG/DL CALCULATED LDL CHOL (test code = 186 MG/DL 2237) RISK RATIO LDL/HDL (test code = 2.74 RATIO 2238) CBC W/AUTO [id number] 00:00:00 Test Item Value Reference Range Interpretation Comments WBC (test code = 1001) 6.4 K/UL RBC (test code = 1002) 4.42 M/UL HEMOGLOBIN (test code = 1003) 13.2 G/DL HEMATOCRIT (test code = 1004) 39.7 % MCV (test code = 1005) 89.8 fL MCH (test code = 1006) 29.9 PG MCHC (test code = 1007) 33.2 G/DL RDW (test code = 1038) 14.0 % NEUTROPHILS (test code = 1008) 64 % LYMPHOCYTES (test code = 1010) 29 % MONOCYTES (test code = 1011) 5 % EOSINOPHILS (test code = 1012) 2 % BASOPHILS (test code = 1013) % PLATELET COUNT (test code = 1015) 265 K/UL CBC W/AUTO [id number] 00:00:00 Test Item Value Reference Range Interpretation Comments WBC (test code = 1001) 6.4 K/UL RBC (test code = 1002) 4.42 M/UL HEMOGLOBIN (test code = 1003) 13.2 G/DL HEMATOCRIT (test code = 1004) 39.7 % MCV (test code = 1005) 89.8 fL MCH (test code = 1006) 29.9 PG MCHC (test code = 1007) 33.2 G/DL RDW (test code = 1038) 14.0 % NEUTROPHILS (test code = 1008) 64 % LYMPHOCYTES (test code = 1010) 29 % MONOCYTES (test code = 1011) 5 % EOSINOPHILS (test code = 1012) 2 % BASOPHILS (test code = 1013) % PLATELET COUNT (test code = 1015) 265 K/UL CBC W/AUTO [id number] 00:00:00 Test Item Value Reference Range Interpretation Comments WBC (test code = 1001) 6.4 K/UL RBC (test code = 1002) 4.42 M/UL HEMOGLOBIN (test code = 1003) 13.2 G/DL HEMATOCRIT (test code = 1004) 39.7 % MCV (test code = 1005) 89.8 fL MCH (test code = 1006) 29.9 PG MCHC (test code = 1007) 33.2 G/DL RDW (test code = 1038) 14.0 % NEUTROPHILS (test code = 1008) 64 % LYMPHOCYTES (test code = 1010) 29 % MONOCYTES (test code = 1011) 5 % EOSINOPHILS (test code = 1012) 2 % BASOPHILS (test code = 1013) % PLATELET COUNT (test code = 1015) 265 K/UL HEMOGLOBIN [id number] 00:00:00 Test Item Value Reference Range Interpretation Comments HEMOGLOBIN A1c (test code = 64829) 6.2 % HEMOGLOBIN [id number] 00:00:00 Test Item Value Reference Range Interpretation Comments HEMOGLOBIN A1c (test code = 17118) 6.2 % HEMOGLOBIN [id number] 00:00:00 Test Item Value Reference Range Interpretation Comments HEMOGLOBIN A1c (test code = 01381) 6.2 % COMPREHENSIVE METABOLIC [id number] 00:00:00 Test Item Value Reference Range Interpretation Comments GLUCOSE (test code = 2217) 157 MG/DL BUN (test code = 2208) 10 MG/DL CREATININE (test code = 2214) 0.7 MG/DL eGFR AMER. (test code 108 ML/MIN/1.73 = 03857) eGFR NON- AMER. (test 89 ML/MIN/1.73 code = 33105) CALCULATED BUN/CREAT (test 14 RATIO code = 2235) SODIUM (test code = 2231) 140 MEQ/L POTASSIUM (test code = 2228) 4.2 MEQ/L CHLORIDE (test code = 2215) 103 MEQ/L CARBON DIOXIDE (test code = 24 MEQ/L 2205) CALCIUM (test code = 2209) 9.6 MG/DL PROTEIN, TOTAL (test code = 7.9 G/DL 2228) ALBUMIN (test code = 2201) 4.5 G/DL CALCULATED GLOBULIN (test 3.4 G/DL code = 2240) CALCULATED A/G RATIO (test 1.3 RATIO code = 2234) BILIRUBIN, TOTAL (test code = 0.4 MG/DL 2207) ALKALINE PHOSPHATASE (test 83 U/L code = 2204) SGOT (AST) (test code = 2218) 17 U/L SGPT (ALT) (test code = 2219) 15 U/L THYROID II PROFILE (T3U, T4, T7, TSH)[id number] 00:00:00 Test Item Value Reference Range Interpretation Comments T3 UPTAKE (test code = 2817) 25.5 % T4 (THYROXINE) (test code = 2819) 7.7 UG/DL CALCULATED T7 (FTI) (test code = 1.96 2820) TSH (test code = 2821) 1.1 UIU/ML THYROID II PROFILE (T3U, T4, T7, TSH)2015-02-10 00:00:00 Test Item Value Reference Range Interpretation Comments T3 UPTAKE (test code = 2817) 25.5 % T4 (THYROXINE) (test code = 2819) 7.7 UG/DL CALCULATED T7 (FTI) (test code = 1.96 2820) TSH (test code = 2821) 1.1 UIU/ML LIPID [id number] 00:00:00 Test Item Value Reference Range Interpretation Comments CHOLESTEROL (test code = 2210) 301 MG/DL TRIGLYCERIDES (test code = 2232) 233 MG/DL HDL CHOLESTEROL (test code = 2220) 68 MG/DL CALCULATED LDL CHOL (test code = 186 MG/DL 2237) RISK RATIO LDL/HDL (test code = 2.74 RATIO 2238) LIPID [id number] 00:00:00 Test Item Value Reference Range Interpretation Comments CHOLESTEROL (test code = 2210) 301 MG/DL TRIGLYCERIDES (test code = 2232) 233 MG/DL HDL CHOLESTEROL (test code = 2220) 68 MG/DL CALCULATED LDL CHOL (test code = 186 MG/DL 2237) RISK RATIO LDL/HDL (test code = 2.74 RATIO 2238) CBC W/AUTO [id number] 00:00:00 Test Item Value Reference Range Interpretation Comments WBC (test code = 1001) 6.4 K/UL RBC (test code = 1002) 4.42 M/UL HEMOGLOBIN (test code = 1003) 13.2 G/DL HEMATOCRIT (test code = 1004) 39.7 % MCV (test code = 1005) 89.8 fL MCH (test code = 1006) 29.9 PG MCHC (test code = 1007) 33.2 G/DL RDW (test code = 1038) 14.0 % NEUTROPHILS (test code = 1008) 64 % LYMPHOCYTES (test code = 1010) 29 % MONOCYTES (test code = 1011) 5 % EOSINOPHILS (test code = 1012) 2 % BASOPHILS (test code = 1013) % PLATELET COUNT (test code = 1015) 265 K/UL CBC W/AUTO [id number] 00:00:00 Test Item Value Reference Range Interpretation Comments WBC (test code = 1001) 6.4 K/UL RBC (test code = 1002) 4.42 M/UL HEMOGLOBIN (test code = 1003) 13.2 G/DL HEMATOCRIT (test code = 1004) 39.7 % MCV (test code = 1005) 89.8 fL MCH (test code = 1006) 29.9 PG MCHC (test code = 1007) 33.2 G/DL RDW (test code = 1038) 14.0 % NEUTROPHILS (test code = 1008) 64 % LYMPHOCYTES (test code = 1010) 29 % MONOCYTES (test code = 1011) 5 % EOSINOPHILS (test code = 1012) 2 % BASOPHILS (test code = 1013) % PLATELET COUNT (test code = 1015) 265 K/UL CBC W/AUTO [id number] 00:00:00 Test Item Value Reference Range Interpretation Comments WBC (test code = 1001) 6.4 K/UL RBC (test code = 1002) 4.42 M/UL HEMOGLOBIN (test code = 1003) 13.2 G/DL HEMATOCRIT (test code = 1004) 39.7 % MCV (test code = 1005) 89.8 fL MCH (test code = 1006) 29.9 PG MCHC (test code = 1007) 33.2 G/DL RDW (test code = 1038) 14.0 % NEUTROPHILS (test code = 1008) 64 % LYMPHOCYTES (test code = 1010) 29 % MONOCYTES (test code = 1011) 5 % EOSINOPHILS (test code = 1012) 2 % BASOPHILS (test code = 1013) % PLATELET COUNT (test code = 1015) 265 K/UL HEMOGLOBIN [id number] 00:00:00 Test Item Value Reference Range Interpretation Comments HEMOGLOBIN A1c (test code = 49793) 6.2 % HEMOGLOBIN [id number] 00:00:00 Test Item Value Reference Range Interpretation Comments HEMOGLOBIN A1c (test code = 85773) 6.2 % HEMOGLOBIN [id number] 00:00:00 Test Item Value Reference Range Interpretation Comments HEMOGLOBIN A1c (test code = 57247) 6.2 % THYROID II PROFILE (T3U, T4, T7, TSH)2015-02-10 00:00:00 Test Item Value Reference Range Interpretation Comments T3 UPTAKE (test code = 2817) 25.5 % T4 (THYROXINE) (test code = 2819) 7.7 UG/DL CALCULATED T7 (FTI) (test code = 1.96 2820) TSH (test code = 2821) 1.1 UIU/ML THYROID II PROFILE (T3U, T4, T7, TSH)2015-02-10 00:00:00 Test Item Value Reference Range Interpretation Comments T3 UPTAKE (test code = 2817) 25.5 % T4 (THYROXINE) (test code = 2819) 7.7 UG/DL CALCULATED T7 (FTI) (test code = 1.96 2820) TSH (test code = 2821) 1.1 UIU/ML
[2023-06-26 14:49] LABS: Absolute Lymphocytes (CBC) 1.7 K/uL (0.7-4.9); Hematocrit 42.3 % (36.0-45.0); Lymphocytes % 28.8 % (15.3-44.8); MCV 91.2 fL (80-100); MPV 8.1 fL (7.6-11.3); Platelets 213 thou/uL (152-406); RBC Red Blood Cell Count 4.64 M/uL (3.86-4.86)
[2023-06-26 15:07] LABS: Bilirubin Total 0.5 mg/dL (0.2-1.0)
[2023-06-26 15:08] LABS: Albumin 3.8 g/dL (3.4-5.0); Protein, Total 7.6 g/dL (6.4-8.2)
[2023-06-26] MEDS ORDERED: NA CHLORIDE 0.9% 1,000 ML ONE (15:28)
--- NOTE | 2023-06-26 15:45 | RAD REPORT ---
EXAM DESCRIPTION: CTAbdomen Pelvis W Contrast - 06/26/2023 3:31 pm CLINICAL HISTORY: Abdominal pain. ABD PAIN COMPARISON: Abdomen Pelvis W Contrast dated 11/06/2021 TECHNIQUE: Biphasic CT imaging of the abdomen and pelvis was performed with 100 ml non-ionic IV cont rast. All CT scans are performed using dose optimization technique as appropriate and may include automated exposure control or mA/KV adjustment according to patient size. FINDINGS: The lung bases are clear. The liver demonstrates mild fatty liver. Spleen, pancreas, adrenal glands and kidneys are within norm al limits. No bowel obstruction, free air, free fluid or abscess. The appendix is normal. No evidence of signi ficant lymphadenopathy. No suspicious bony findings. IMPRESSION: No acute intra-abdominal or pelvic finding. Mild fatty liver.
[2023-06-26 15:56] LABS: Specific Gravity 1.025 (1.005-1.030); Urine Bacteria None Seen /HPF (<20); Urine Bilirubin NEGATIVE (Negative); Urine Blood Negative (Negative); Urine Clarity Clear (Clear); Urine Color Colorless (Yellow); Urine Glucose 4+ (Over) (Negative); Urine Protein NEGATIVE (Negative); Urine RBC <5 /HPF (None Seen); Urine Urobilinogen Normal (Normal); Urine pH 5.5 (5.0-7.0)
--- NOTE | 2023-06-26 16:07 | ER ---
Nurse's Notes [facility] Name: Yolanda Lowe Age: 58 yrs Sex: Female : 1965 Arrival Date: 06/26/2023 Time: 14:09 Bed 17 Private MD: Diagnosis: Lower abdominal pain, unspecified;Type 2 diabetes mellitus with hyperglycemia Presentation: 06/26 14:25 Chief complaint: Patient states: abd pain X 3 weeks off and on, pain under belly button iw 03/25. Coronavirus screen: At this time, the client does not indicate any symptoms associated with coronavirus-19. Ebola Screen: Patient negative for fever greater than or equal to 101.5 degrees Fahrenheit, and additional compatible Ebola Virus Disease symptoms Patient denies exposure to infectious person. Patient denies travel to an Ebola-affected area in the 21 days before illness onset. No symptoms or risks identified at this time. Initial Sepsis Screen: Does the patient meet any 2 criteria? No. Patient's initial sepsis screen is negative. Does the patient have a suspected source of infection? No. Patient's initial sepsis screen is negative. Risk Assessment: Do you want to hurt yourself or someone else? Patient reports no desire to harm self or others. Onset of symptoms was June 05, 2023. 14:25 Method Of Arrival: Ambulatory iw 14:25 Acuity: MARGI 3 iw Historical: - Allergies: 14:26 Hydrocodone-Acetaminophen; iw - PMHx: 14:26 Diabetes - NIDDM; Hypertension; iw - Immunization history:: Adult Immunizations unknown. - Social history:: Smoking status: unknown. Screenin:37 [facility] ED Fall Risk Assessment (Adult) Score/Fall Risk Level 0 - 2 = Low Risk nj1 Oriented to surroundings, Maintained a safe environment, Hourly rounding (assess needs \T\ fall precautionary measures) done. Abuse screen: Denies threats or abuse. Denies injuries from another. Nutritional screening: No deficits noted. Tuberculosis screening: No symptoms or risk factors identified. Assessment: 15:15 General: Appears in no apparent distress. comfortable, Behavior is calm, cooperative, nj1 appropriate for age. Pain: Complains of pain in right lower quadrant and left lower quadrant Pain currently is 7 out of 10 on a pain scale. Neuro: Level of Consciousness is awake, alert, obeys commands, Oriented to person, place, time, situation. Cardiovascular: Patient's skin is warm and dry. Respiratory: Airway is patent Respiratory effort is even, unlabored. GI: Reports lower abdominal pain. 16:22 Reassessment: No changes from previously documented assessment. Patient and/or family nj1 updated on plan of care and expected duration. Pain level reassessed. Patient is alert, oriented x 3, equal unlabored respirations, skin warm/dry/pink. Vital Signs: 14:25 BP 197 / 107; Pulse 88; Resp 16; Pulse Ox 100% on R/A; Weight 73.94 kg; Height 5 ft. 1 iw in. ; Pain 7/10; 15:15 BP 158 / 93; Pulse 85; Resp 17; Pulse Ox 97% ; Pain 7/10; nj1 16:21 BP 168 / 86; Pulse 84; Resp 16; Pulse Ox 98% ; Pain 6/10; nj1 14:25 Body Mass Index 30.80 (73.94 kg, 154.94 cm) iw 14:25 Pain Scale: Adult iw 15:15 Pain Scale: Adult nj1 16:21 Pain Scale: Adult nj1 ED Course: 14:10 Patient arrived in ED. rg4 14:11 Christine Cevallos PA-C is PHCP. sb4 14:11 Timi Trujillo MD is Attending Physician. sb4 14:26 Triage completed. iw 14:26 Arm band placed on. iw 14:44 CBC with Diff Sent. bc6 14:44 CMP Sent. bc6 14:44 Lipase Sent. bc6 14:44 Inserted saline lock: 20 gauge in right antecubital area, using aseptic technique. bc6 Blood collected. 15:10 Yelena Dejesus, RN is Primary Nurse. iw 15:15 Patient has correct armband on for positive identification. Bed in low position. Call nj1 light in reach. Adult w/ patient. Provided Education on: call light, fall precautions. 15:33 CT Abd/Pelvis - IV Contrast Only In Process Unspecified. EDMS 16:06 Prateek Bella MD is Referral Physician. sb4 16:22 No provider procedures requiring assistance completed. IV discontinued, intact, nj1 bleeding controlled, No redness/swelling at site. Pressure dressing applied. Administered Medications: 15:18 Drug: NS 0.9% IV 1000 ml IV at 1 bolus Per protocol; 1000 mL bolus Route: IV; Rate: 1 nj1 bolus; Site: right antecubital; 16:22 Follow up: Response: No adverse reaction; IV Status: Order to discontinue infusion; IV nj1 Intake: 700ml Medication: 16:22 VIS not applicable for this client. nj1 Intake: 16:22 IV: 700ml; Total: 700ml. nj1 Outcome: 16:06 Discharge ordered by . sb4 16:22 Discharged to home ambulatory, nj1 16:22 Condition: stable 16:22 Discharge instructions given to patient, Instructed on discharge instructions, follow up and referral plans. medication usage, Demonstrated understanding of instructions, follow-up care, medications, Prescriptions given X 1, 16:23 Patient left the ED. nj1 Signatures: Dispatcher [employer] EDYelena Lenz, RN Argenis García rg4 Christine Cevallos, PA-C PA-C sb4 Tanja David bc6 Jody Escalona RN RN nj1
--- NOTE | 2023-06-26 16:07 | EDPHYS ---
Physician Documentation [facility] Name: Yolanda Lowe Age: 58 yrs Sex: Female : 1965 Arrival Date: 06/26/2023 Time: 14:09 Bed 17 Private MD: ED Physician Timi Trujillo HPI: 06/26 17:41 This 58 yrs old Female presents to ER via Ambulatory with complaints of sb4 Abdominal Pain. 17:41 The patient presents with abdominal pain in the lower abdomen. Onset: The sb4 symptoms/episode began/occurred 2 month(s) ago. The symptoms do not radiate. Associated signs and symptoms: none. Modifying factors: The symptoms are alleviated by nothing, the symptoms are aggravated by nothing. The patient has not experienced similar symptoms in the past. The patient has not recently seen a physician. Historical: - Allergies: 14:26 Hydrocodone-Acetaminophen; iw - PMHx: 14:26 Diabetes - NIDDM; Hypertension; iw - Immunization history:: Adult Immunizations unknown. - Social history:: Smoking status: unknown. ROS: 17:41 Constitutional: Negative for fever, chills, and weight loss, sb4 17:41 Abdomen/GI: Positive for abdominal pain, 17:41 All other systems are negative, Exam: 17:41 Constitutional: This is a well developed, well nourished patient who is awake, alert, sb4 and in no acute distress. Head/Face: Normocephalic, atraumatic. Eyes: Extra-ocular motions intact. Periorbital areas with no swelling, redness, or edema. ENT: Mucous membranes moist. Cardiovascular: Regular rate and rhythm with a normal S1 and S2. Respiratory: Lungs have equal breath sounds bilaterally, clear to auscultation and percussion. No rales, rhonchi or wheezes noted. No increased work of breathing, no retractions or nasal flaring. Abdomen/GI: Soft, non-tender, no distension. Back: No spinal tenderness. No costovertebral tenderness. Full range of motion. Skin: Warm, dry with normal turgor. Normal color with no rashes, no lesions, and no evidence of cellulitis. MS/ Extremity: Pulses equal, no cyanosis. Neurovascular intact. Full, normal range of motion. Neuro: Awake and alert, GCS 15, oriented to person, place, time, and situation. Motor strength 5/5 in all extremities. Sensory grossly intact. Vital Signs: 14:25 BP 197 / 107; Pulse 88; Resp 16; Pulse Ox 100% on R/A; Weight 73.94 kg; Height 5 ft. 1 iw in. ; Pain 7/10; 15:15 BP 158 / 93; Pulse 85; Resp 17; Pulse Ox 97% ; Pain 7/10; nj1 16:21 BP 168 / 86; Pulse 84; Resp 16; Pulse Ox 98% ; Pain 6/10; nj1 14:25 Body Mass Index 30.80 (73.94 kg, 154.94 cm) iw 14:25 Pain Scale: Adult iw 15:15 Pain Scale: Adult nj1 16:21 Pain Scale: Adult nj1 MDM: 14:22 Patient medically screened. sb4 17:41 Differential diagnosis: bowel obstruction, diverticulitis, non-specific abd pain, sb4 Peptic Ulcer Disease, urinary tract infection. Data reviewed: vital signs, nurses notes, lab test result(s), radiologic studies, and as a result, I will discharge patient. Care significantly affected by the following chronic conditions: Diabetes, Hypertension. Counseling: I had a detailed discussion with the patient and/or guardian regarding the historical points, exam findings, and any diagnostic results supporting the discharge/admit diagnosis, the presence of at least one elevated blood pressure reading (>120/80) during this emergency department visit, lab results, radiology results, the need for outpatient follow up, for definitive care, a wellness nurse rn, to return to the emergency department if symptoms worsen or persist or if there are any questions or concerns that arise at home. Refusal of service: The patient/guardian displays adequate decision making capability and despite a detailed discussion of alternatives, benefits, risks, and consequences refuses: Medications, Patient is prescribed metformin for her type 2 diabetes which she states that she does not take due to side effects. I highly encourage patient to take metformin and if she was not going to, to follow-up with her primary care to establish a new regimen. I told patient I wanted to give her insulin here to bring her blood sugar down but she declined. Informed patient on the risks of persistent hyperglycemia. She understood. 06/26 14:34 Order name: CBC with Diff; Complete Time: 14:50 sb4 06/26 14:34 Order name: CMP; Complete Time: 15:11 sb4 06/26 14:34 Order name: Lipase; Complete Time: 15:11 sb4 06/26 14:34 Order name: UAM; Complete Time: 16:01 sb4 06/26 14:34 Order name: CT Abd/Pelvis - IV Contrast Only; Complete Time: 15:53 sb4 06/26 14:34 Order name: IV Saline Lock; Complete Time: 14:44 sb4 06/26 14:34 Order name: Labs collected and sent; Complete Time: 14:44 sb4 Administered Medications: 15:18 Drug: NS 0.9% IV 1000 ml IV at 1 bolus Per protocol; 1000 mL bolus Route: IV; Rate: 1 nj1 bolus; Site: right antecubital; 16:22 Follow up: Response: No adverse reaction; IV Status: Order to discontinue infusion; IV nj1 Intake: 700ml Disposition: 17:58 Co-signature as Attending Physician, Timi Trujillo MD I agree with the assessment and kdr plan of care. Disposition Summary: 06/26/23 16:06 Discharge Ordered Notes: Location: Home sb4 Problem: an ongoing problem sb4 Symptoms: are unchanged sb4 Condition: Stable sb4 Diagnosis - Lower abdominal pain, unspecified sb4 - Type 2 diabetes mellitus with hyperglycemia sb4 Followup: sb4 - With: Prateek Bella MD - When: As needed - Reason: Further diagnostic work-up, Recheck today's complaints, Re-evaluation by your physician Discharge Instructions: - Discharge Summary Sheet sb4 - Hyperglycemia sb4 - Abdominal Pain, Adult, [id number] sb4 Forms: - Medication Reconciliation Form sb4 - Thank You Letter sb4 - Antibiotic Education sb4 - Prescription Opioid Use sb4 - Patient Portal Instructions sb4 - Leadership Thank You Letter sb4 Prescriptions: - dicyclomine 20 mg Oral tablet - take 1 tablet ORAL route 3 times per day; 20 tablet; Refills: 0, Product sb4 Selection Permitted Signatures: Dispatcher [employer] Timi Campos MD MD kdr Williams, Irene RN RN Christine Camp PA-C PA-C sb4 Jody Escalona RN RN nj1
[2023-06-26 16:51] VITALS: BP 168/86; O2SAT 98
== END 2023-06-26 16:23 | disposition home or self-care (01) ==
LOC: ER 14:09
DX: R10.30 Lower abdominal pain, unspecified (principal); E11.65 Type 2 diabetes mellitus with hyperglycemia
CPT/HCPCS: 36415; 74177; 80053; 81001; 83690; 85025; J7030; Q9967